=== PATIENT | male | born 1965 | race Caucasian/White ===

== ENCOUNTER → 2018-09-17 | Outpatient (CLI) | payer BC ==
--- NOTE | 2018-09-18 12:44 | ECHOF ---
Referral Reason:R09.89 Other specified symptons and signs involving MEASUREMENTS -------- HEIGHT: 193.0 cm WEIGHT: 86.2 kg BP: 154/80 RVIDd: 2.9 cm (< 3.3) IVSd: 1.2 cm (0.6 - 1.1) LVIDd: 4.1 cm (3.9 - 5.3) LVPWd: 1.3 cm (0.6 - 1.1) IVSs: 1.6 cm LVIDs: 2.9 cm LVPWs: 2.0 cm LA Diam: 3.7 cm (2.7 - 3.8) Ao Diam: 3.5 cm (2.0 - 3.7) AV Cusp: 2.1 cm (1.5 - 2.6) MV EXCURSION: 18.221 mm (> 18.000) MV EF SLOPE: 106 mm/s (70 - 150) EPSS: 0.9 cm MV E Can: 0.59 m/s MV DecT: 334 ms MV A Can: 0.86 m/s MV E/A Ratio: 0.69 FINDINGS -------- Sinus rhythm. This was a technically good study. The left ventricular size is normal. There is mild concentric left ventricular hypertrophy. Overa ll left ventricular systolic function is normal with, an EF between 55 - 60 %. The right ventricle is normal in size. Normal LA size by volume 22+/-6 ml/m2. The right atrium is normal in size. The aortic valve is trileaflet, and appears structurally normal. No aortic stenosis or regurgitation. The mitral valve is normal. The tricuspid valve appears structurally normal. There is no pulmonic regurgitation present. The aortic root size is normal. Normal inferior vena cava with normal inspiratory collapse consistent with estimated right atrial pre ssure of 5 mmHg. There is no pericardial effusion. CONCLUSIONS -------- 1. Sinus rhythm. 2. This was a technically good study. 3. The left ventricular size is normal. 4. There is mild concentric left ventricular hypertrophy. 5. Overall left ventricular systolic function is normal with, an EF between 55 - 60 %. 6. Normal LA size by volume 22+/-6 ml/m2. 7. The aortic valve is trileaflet, and appears structurally normal. No aortic stenosis or regurgitati on. 8. The mitral valve is normal. 9. The tricuspid valve appears structurally normal. 10. There is no pulmonic regurgitation present. 11. The aortic root size is normal. 12. Normal inferior vena cava with normal inspiratory collapse consistent with estimated right atrial pressure of 5 mmHg. 13. There is no pericardial effusion. RN CLINICAL RESEARCH: Norma Maat RDCS
== END | disposition home or self-care (01) ==
LOC: RADUSMAIN 12:39
PROVIDERS: ATTEND Family Medicine
DX: I51.7 Cardiomegaly (principal); R09.89 Other specified symptoms and signs involving the circulatory and respiratory systems
CPT/HCPCS: 93306

== ENCOUNTER 2023-09-04 17:45 | Inpatient (IN) | payer OTHER ==
[2023-09-04 18:57] LABS: Basophils % (A) 0 %; Eosinophils % (A) 0 %; HCT 36.5 % (39.0-53.0); Lymphocytes % (A) 9 %; MCH 33.5 pg (25.0-35.0); MCHC 32.9 g/dL (31.0-37.0); MCV 101.8 fL (80.0-100.0); Mean Platelet Volume 8.4; Monocytes # (A) 0.5 k/uL (0-1.0); Monocytes % (A) 5 %; Neutrophils # (A) 9.1 k/uL (1.3-7.7); Neutrophils % (A) 85 %; Platelet Count 289 k/uL (150-450); RBC 3.58 m/uL (4.30-5.90); RDW 11.9 % (11.5-15.5); WBC 10.7 k/uL (3.8-10.6)
[2023-09-04] MEDS ORDERED: SODIUM CHLORIDE 0.9% 1,000 ML IV ONE (19:12)
[2023-09-04] MEDS ORDERED: ONDANSETRON 4 MG/2 ML VIAL IVP STA (19:13)
[2023-09-04 19:16] LABS: NT-Pro-B-Type Natriuretic Pept 12100 pg/mL
[2023-09-04 19:19] LABS: INR 0.9 (<1.2); Partial Thromboplastin Time 24.3 sec (22.0-30.0); Prothrombin Time 10.1 sec (10.0-12.5)
--- NOTE | 2023-09-04 19:24 | XR ---
EXAMINATION TYPE: XR chest 2V DATE OF EXAM: 09/04/2023 7:04 PM CLINICAL INDICATION:Male, 57 years old with history of Chest Pain; COMPARISON: Chest radiographs from 12/25/2022 TECHNIQUE: XR chest 2V Frontal and lateral views of the chest. FINDINGS: Lungs/Pleura: There is flattening of the diaphragm with increased lucency of the lungs. No evidence o f pneumothorax, pleural effusion or focal consolidation. Pulmonary vascularity: Unremarkable. Heart/mediastinum: Cardiomediastinal silhouette is unremarkable. Musculoskeletal: No acute osseous pathology. IMPRESSION: 1. No acute cardiopulmonary disease process. 2. COPD changes.
[2023-09-04] MEDS ORDERED: HEPARIN SODIUM 1,000 UN/ML (10ML VL) IV PRN (20:21)
[2023-09-04] MEDS ORDERED: HEPARIN SODIUM 1,000 UN/ML (10ML VL) IV ONE (20:21)
[2023-09-04] MEDS ORDERED: MORPHINE SULFATE 4 MG/ML SYRINGE IVP STA (20:21)
[2023-09-04] MEDS ORDERED: ASPIRIN 81 MG PO STA (20:22)
[2023-09-04 20:24] LABS: ALT 35 U/L (4-49); AST 174 U/L (17-59); African American GFR (CKD) 33 (>60 ml/min/1.73 sqM); Alkaline Phosphatase 38 U/L (38-126); Anion Gap 20 mmol/L; Blood Urea Nitrogen 47 mg/dL (9-20); Calcium 9.2 mg/dL (8.4-10.2); Carbon Dioxide 19 mmol/L (22-30); Chloride 92 mmol/L (98-107); Glucose 457 mg/dL (74-99); Magnesium 1.9 mg/dL (1.6-2.3); Non-African American GFR(CKD) 28 (>60 ml/min/1.73 sqM); Potassium 3.9 mmol/L (3.5-5.1); Sodium 131 mmol/L (137-145); Total Protein 6.6 g/dL (6.3-8.2)
[2023-09-04] MEDS ORDERED: HEPARIN SOD,PORK IN 0.45% NACL 25,000 UNIT in 0.45% NACL 1 250ML.BAG IV SCH (20:30)
[2023-09-04 20:38] LABS: Lipase 2224 U/L (23-300)
--- NOTE | 2023-09-04 20:51 | ED ---
Chest Pain HPI - General Chief Complaint: Chest Pain Stated Complaint: chest pains, throwing up, weakness Time Seen by Provider: 09/04/23 17:50 Source: patient Mode of arrival: wheelchair Limitations: no limitations - History of Present Illness Initial Comments: 57-year-old male presents from home with complaint of intractable nausea vomiting. at bedside helps supplement the history. States that the patient had a family Thanksgiving dinner yesterday. He came home and started having vomiting. reports that he threw up once an hour all night long. He cannot hold down anything to eat or drink. He is an insulin-dependent diabetic. He has an insulin pump. His glucose has been reading high. He also reports to generalized abdominal pain and some substernal chest pain. He states that the chest pain feels like an ache from vomiting so much. He does have a history of coronary disease and has 3 stents in his heart. He follows the Dr. Arambula. He denies having any fevers. There are a couple of family members that have had GI symptoms as well. Denies any hematemesis. No diarrhea. No history of DKA. He did not take his medications last night which included his Eliquis. He did not take his Effient this morning. No other alleviating, precipitating or modifying factors - Related Data Home Medications Medication Instructions Recorded Confirmed ALPRAZolam [Xanax] 0.5 mg PO BID PRN 12/11/22 09/04/23 INSULIN LISPRO (For Pump) [humaLOG 0.01 units SQ-PUMP CONTINUOUS 12/11/22 09/04/23 (For Pump)] Omeprazole 40 mg PO DAILY 12/11/22 09/04/23 Apixaban [Eliquis] 2.5 mg PO BID 09/04/23 09/04/23 Metoprolol Succinate (ER) [Toprol 25 mg PO DAILY 09/04/23 09/04/23 XL] Multivitamins, Thera [Multivitamin 1 tab PO DAILY 09/04/23 09/04/23 (formulary)] Previous Rx's Medication Instructions Recorded Atorvastatin [Lipitor] 80 mg PO HS 30 Days #30 tab 12/14/22 Nitroglycerin Sl Tabs [Nitrostat] 0.4 mg SUBLINGUAL Q5M PRN #30 tab 12/14/22 Prasugrel [Effient] 10 mg PO DAILY 30 Days #30 tab 12/14/22 Spironolactone [Aldactone] 25 mg PO DAILY #30 tab 12/14/22 lisinopriL [Zestril] 2.5 mg PO DAILY #30 tab 12/14/22 Amiodarone [Cordarone] 200 mg PO DAILY #0 tab 12/27/22 Allergies Allergy/AdvReac Type Severity Reaction Status Date / Time No Known Allergies Allergy Verified 09/04/23 19:30 Review of Systems ROS Statement: Those systems with pertinent positive or pertinent negative responses have been documented in the HPI. ROS Other: All systems not noted in ROS Statement are negative. Past Medical History Past Medical History: Coronary Artery Disease (CAD), Diabetes Mellitus, Myocardial Infarction (MS) Additional Past Medical History / Comment(s): Pneumothorax Last Myocardial Infarction Date:: nov 2022 History of Any Multi-Drug Resistant Organisms: None Reported Past Surgical History: Heart Catheterization With Stent Additional Past Surgical History / Comment(s): Chest tube Date of Last Stent Placement:: 12/11/22 Past Psychological History: No Psychological Hx Reported Smoking Status: Current every day smoker Past Alcohol Use History: None Reported Past Drug Use History: None Reported - Past Family History Father Family Medical History: Deep Vein Thrombosis (DVT), Myocardial Infarction (MS) Mother Family Medical History: AFIB General Exam Limitations: no limitations General appearance: alert, in no apparent distress Head exam: Present: atraumatic, normocephalic, normal inspection Eye exam: Present: normal appearance, PERRL, EOMI. Absent: scleral icterus, conjunctival injection, periorbital swelling ENT exam: Present: normal exam, mucous membranes moist Neck exam: Present: normal inspection. Absent: meningismus, lymphadenopathy Respiratory exam: Present: normal lung sounds bilaterally. Absent: respiratory distress, wheezes, rales, rhonchi, stridor Cardiovascular Exam: Present: regular rate, normal rhythm, normal heart sounds. Absent: systolic murmur, diastolic murmur, rubs, gallop, clicks GI/Abdominal exam: Present: soft, tenderness (Generalized), normal bowel sounds. Absent: distended, guarding, rebound, rigid Extremities exam: Present: normal inspection, full ROM, normal capillary refill. Absent: tenderness, pedal edema, joint swelling, calf tenderness Back exam: Present: normal inspection Neurological exam: Present: alert, oriented X3, CN II-XII intact Psychiatric exam: Present: normal affect, normal mood Skin exam: Present: warm, dry, intact, normal color. Absent: rash Course Vital Signs 09/04/23 09/04/23 09/04/23 17:48 19:50 21:25 Temperature 97.9 F Pulse Rate 75 73 75 Respiratory 16 18 18 Rate Blood Pressure 110/71 130/77 121/67 O2 Sat by Pulse 99 96 98 Oximetry 09/04/23 09/04/23 22:13 23:14 Temperature Pulse Rate 78 80 Respiratory 18 18 Rate Blood Pressure 116/65 118/77 O2 Sat by Pulse 95 96 Oximetry Chest Pain MDM - MDM Was pt. sent in by a medical professional or institution ([facility], P[employer]MENT [employer] IN[employer]CTOR, urgent care, hospital, or custodial...) When possible be specific @ -No Did you speak to anyone other than the patient for history (EMS, parent, family, police, friend...)? What history was obtained from this source @ -The patient's helps provide history Did you review nursing and triage notes (agree or disagree)? Why? @ -I reviewed and agree with nursing and triage notes Were old charts reviewed (outside hosp., previous admission, EMS record, old EKG, old radiological studies, urgent care reports/EKG's, custodial records)? Report findings @ -I reviewed the patient's last EKG from December and his cardiac cath in November Differential Diagnosis (chest pain, altered mental status, abdominal pain women, abdominal pain men, vaginal bleeding, weakness, fever, dyspnea, syncope, headache, dizziness, GI bleed, back pain, seizure, CVA, palpatations, mental health, musculoskeletal)? @ -Differential Chest Pain: Stable Angina, Unstable Angina, STEMI, NSTEMI Aortic Dissection, Pneumothorax, Musculoskeletal, Esophageal Spasm GERD, Cholecystitis, Pancreatitis, Zoster, this is not meant to be an all-inclusive list. Differential Abdominal Pain Women: Appendicitis, Cholecystitis, diverticulosis, ischemic bowel, pancreatitis, hepatitis, UTI, gastroenteritis, AAA, incarcerated hernia, bowel obstruction, constipation, inflammatory bowel, hepatitis, peptic ulcer disease, splenic infarction, perforated viscus, vulvitis, ovarian torsion, PID, kidney stone, placenta abruption, this is not meant to be an all-inclusive list EKG interpreted by me (3pts min.). @ -Originally EKG done at 180 demonstrates sinus rhythm with a rate of 75. WY interval 170. QRS 111. QTC of 440. PVCs. No significant ST segment elevation area and mild ST depression in aVL Repeat EKG done at 194 demonstrates sinus rhythm with a biphasic T wave in V1 and V2. No reciprocal changes. Rate of 77. WY interval 132. QRS 101. QTC of 423 X-rays interpreted by me (1pt min.). @ -Yes and demonstrates no acute process CT interpreted by me (1pt min.). @ -Yes and demonstrates pancreatitis U/S interpreted by me (1pt. min.). @ -None done What testing was considered but not performed or refused? (CT, X-rays, U/S, labs)? Why? @ -None What meds were considered but not given or refused? Why? @ -None Did you discuss the management of the patient with other professionals (professionals i.e. DrSerenity, PA, POWER EQUIPMENT TECHNOLOGY INSTRUCTOR, lab, RT, psych nurse, social work nurse, certified teacher assistant, teacher, officer lieutenant, geriatric case manager)? Give summary @ -I spoke with Dr. Arambula. He reports that he would perform a heart cath on the patient's if his kidney function is okay. Kidney function does return and patient is in acute renal failure. Because of this he recommends heparin drip and medical management at this time. I also spoke with James from ICU was agreeable to accept the patient. Also spoke with Karyn from [facility] Was smoking cessation discussed for >3mins.? @ -No Was critical care preformed (if so, how long)? @ -Yes, 40 minutes for ICU admission. Patient has DKA, and STEMI Were there social determinants of health that impacted care today? How? (Homelessness, low income, unemployed, alcoholism, drug addiction, transportation, low edu. Level, literacy, decrease access to med. care, senior living, rehab)? @ -No Was there de-escalation of care discussed even if they declined (Discuss DNR or withdrawal of care, Hospice)? DNR status @ -No What co-morbidities impacted this encounter? (DM, HTN, Smoking, COPD, CAD, Cancer, CVA, ARF, Chemo, Hep., AIDS, mental health diagnosis, sleep apnea, morbid obesity)? @ -Diabetes mellitus, coronary disease Was patient admitted / discharged? Hospital course, mention meds given and route, prescriptions, significant lab abnormalities, going to OR and other pertinent info. @ -Admitted. Upon arrival patient is placed into room 4. Thorough history and physical exam was performed. IV access is established. Patient given Zofran for nausea and started on IV fluids. He does have a history of congestive heart failure and therefore the patient's only receives 1 L bolus. Laboratory studies are conducted. Chest x-rays performed. Patient does meet criteria for DKA. He is started on an insulin drip and his insulin pump was removed. Patient also has significantly elevated troponin level. Called and spoke with Dr. Arambula. Reports that he would catheterize the patient's but is awaiting kidney function. Patient's kidney function does return and is elevated therefore risks of catheterization at this time is risky. He recommends the patient be heparinized. He is given an aspirin. I discussed the results with the patient. He must be admitted for cardiac evaluation as well as evaluation for pancreatitis and DKA. Patient understood this and was agreeable. Spoke with James from the ICU who agreed to admit the patient Undiagnosed new problem with uncertain prognosis? @ -Yes Drug Therapy requiring intensive monitoring for toxicity (Heparin, Nitro, Insulin, Cardizem)? @ -Yes, heparin and insulin Were any procedures done? @ No Diagnosis/symptom? @ -Intractable nausea and vomiting, acute pancreatitis, acute DKA, NSTEMI, LOLLY Acute, or Chronic, or Acute on Chronic? @ -Acute Uncomplicated (without systemic symptoms) or Complicated (systemic symptoms)? @ -Complicated Side effects of treatment? @ -No Exacerbation, Progression, or Severe Exacerbation? @ -No Poses a threat to life or bodily function? How? (Chest pain, USA, MS, pneumonia, PE, COPD, DKA, ARF, appy, cholecystitis, CVA, Diverticulitis, Homicidal, Suicidal, threat to staff... and all critical care pts) @ -Yes, patient must be admitted to ICU for DKA, LOLLY, NSTEMI Disposition Clinical Impression: NSTEMI (non-ST elevated myocardial infarction), Congestive heart failure, Nausea and vomiting, DKA (diabetic ketoacidosis), LOLLY (acute kidney injury), Acute pancreatitis Disposition: ADMITTED IP TO THIS HOSP Condition: Serious Is patient prescribed a controlled substance at d/c from ED?: No Time of Disposition: 21:46 Decision to Admit Reason: Admit from EC Decision Date: 09/04/23 Decision Time: 21:46
[2023-09-04] MEDS: SODIUM CHLORIDE 0.9% 1,000 ML IV SCH (21:01)
--- NOTE | 2023-09-04 21:16 | CT ---
EXAMINATION TYPE: CT abdomen pelvis wo con CT DLP: 632.5 mGycm, Automated exposure control for dose reduction was used. DATE OF EXAM: 09/04/2023 9:04 PM COMPARISON: None CLINICAL INDICATION:Male, 57 years old with history of abd pain; abdominal pain TECHNIQUE: Axial CT of the ;CT abdomen pelvis wo con;Sagittal and coronal reformats were created on a separate workstation. Contrast used: mL of , (none if empty) Oral contrast used: without Oral Contrast (none if empty) FINDINGS: LOWER CHEST: Small hiatal hernia. ABDOMEN LIVER: Unremarkable GALLBLADDER AND BILE DUCTS: Layering gallstones present. PANCREAS: Fat stranding changes around the pancreatic head and neck. No organizing fluid collection.. SPLEEN: Unremarkable. ADRENAL GLANDS: Unremarkable. KIDNEYS AND URETERS: No evidence of hydronephrosis or renal calculus. The ureters are unremarkable. PELVIS BLADDER: Unremarkable REPRODUCTIVE: Unremarkable. ABDOMEN & PELVIS STOMACH AND BOWEL: No evidence of bowel obstruction. Appendix is normal. PERITONEUM/RETROPERITONEUM: No evidence of pneumoperitoneum or free fluid. VASCULATURE: No evidence of aortic aneurysm. MUSCULOSKELETAL: No acute osseous abnormalities. Mild disc degeneration changes are present throughou t the thoracolumbar spine. LYMPH NODES: No gross evidence for lymphadenopathy. SOFT TISSUE/ABDOMINAL WALL: Unremarkable IMPRESSION: 1. Peripancreatic inflammation changes correlate with serum lipase for pancreatitis. No additional e vidence for acute abdominal process. 2. Appendix is normal. No obstructive uropathy.
[2023-09-04] MEDS ORDERED: INSULIN REGULAR 100 UNIT in SODIUM CHLORIDE 0.9% 100 ML IV SCH (21:45)
[2023-09-04 21:49] LABS: Glucose,Whole Blood 315 mg/dL (70-110)
[2023-09-04 22:56] LABS: Glucose,Whole Blood 246 mg/dL (70-110)
[2023-09-04] MEDS: D5-0.45% NACL WITH KCL 20MEQ/L 1,000 ML IV SCH (23:09)
[2023-09-04] MEDS ORDERED: NALOXONE 0.4 MG/ML 1 ML VIAL IV PRN (23:33)
[2023-09-04] MEDS ORDERED: LORazepam 2 MG/ML INJ IV PRN ×3 (23:43)
[2023-09-04] MEDS ORDERED: THIAMINE 100 MG/ML 2 ML VIAL IM STA (23:43)
[2023-09-05 00:12] LABS: Glucose,Whole Blood 195 mg/dL (70-110)
[2023-09-05] MEDS: MORPHINE SULFATE 4 MG/ML SYRINGE IVP PRN ×3 (00:20→19:35)
[2023-09-05] MEDS: ONDANSETRON 4 MG/2 ML VIAL IVP PRN ×2 (00:20→06:50)
[2023-09-05 00:52] LABS: African American GFR (CKD) 47 (>60 ml/min/1.73 sqM); Anion Gap 11 mmol/L; Blood Urea Nitrogen 48 mg/dL (9-20); Carbon Dioxide 24 mmol/L (22-30); Chloride 99 mmol/L (98-107); Glucose 189 mg/dL (74-99); Non-African American GFR(CKD) 41 (>60 ml/min/1.73 sqM); Potassium 3.5 mmol/L (3.5-5.1); Sodium 134 mmol/L (137-145)
[2023-09-05 00:55] LABS: Glucose,Whole Blood 190 mg/dL (70-110)
[2023-09-05 02:04] LABS: Glucose,Whole Blood 151 mg/dL (70-110)
[2023-09-05 03:03] LABS: Glucose,Whole Blood 124 mg/dL (70-110)
--- NOTE | 2023-09-05 03:31 | P.CNPUL ---
History of Present Illness Consult date: 09/05/23 Requesting physician: Martha Long Reason for consult: other (ICU management) Chief complaint: Nausea and vomiting and abdominal pain History of present illness: I am seeing this patient in new consultation today 09/05/2023 in the intensive care unit after the patient presented with acute abdominal pain and nausea and vomiting. Patient is a 57-year-old white male with past medical history s ignificant for diabetes mellitus normally managed on insulin pump, alcoholism, coronary artery disease and ND with prior stents, chronic and ongoing tobacco dependence, and anxiety. Patient has had a total of 3 cardiac stents, with his last heart catheterization back in November,, where he underwent another PCI/stent to the circumflex/OM1. Patient unfortunately continues to smoke approximately 1 pack per day. He also drinks approximately 1 pint per day. His last drink was yesterday at a Thanksgiving dinner. Patient states that after the constitution party, he had intractable nausea and vomiting. He was progressively more weak. He had associated medial abdominal pain. He denies any hematemesis, bloody bowel movements, constipation, diarrhea. He states that his blood sugars were running greater than 600 while at home. He was unable to control his blood sugar despite insulin boluses. On arrival to the emergency room last night, the patient was found to be in acute diabetic ketoacidosis and also had findings consistent with acute pancreatitis. Blood glucose on arrival was 457, serum bicarb 19, anion gap 20, acetone positive. Patient was started on the DKA protocol. Insulin is infusing at 8 units per hour. Influenza been transitioned to D5 W0.45% saline with 20 meqs potassium at 150 ML's per hour. Patient's lipase levels were quite elevated at 2224. A follow-up noncontrast CT of the abdomen demonstrated stranding changes around the pancreatic head and neck. No organized fluid collection. There are layering gallstones present. No symptoms of infectious process. LFTs mildly elevated. No jaundice. Patient is currently receiving IV fluids as listed above and nothing by mouth. A GI consult was placed. Patient also noted some midsternal chest pain without radiation. This is been ongoing overnight. Troponins were significantly elevated at 62.4 and is downtrending currently 45.3. ECG done on arrival showed normal sinus rhythm with nonspecific T-wave changes in the anterior leads. Cardiology was contacted, but deferred heart catheterization due to the patient's kidney function. Heparin is infusing per protocol. Baseline APTT 24. BMP from admission shows a sodium 131, potassium 3.9, chloride 92, serum bicarb 19, anion gap 20, BUN 47, creatinine 2.43, glucose 457. CBC unremarkable without any leukocytosis. Patient is currently lying in bed, on room air, in no acute distress. SpO2 is 95%. Vital signs are stable. Blood pressure is normotensive. Heart rhythm appears normal sinus on bedside monitor at a rate of 80 bpm. No tachycardia or tachypnea. He remains afebrile. Abdomen is tender to palpation. No abnormal bruising or distention. He is currently nothing by mouth. Nausea and vomiting has subsided. He will be monitored in the intensive care unit. Review of Systems REVIEW OF SYSTEMS: CONSTITUTIONAL: Denies any recent significant weight loss or weight gain. EYES: Denies change in vision. EARS, NOSE, MOUTH, THROAT: Denies headaches, denies sore throat. CARDIOVASCULAR: Admits substernal chest pain without radiation. Denies any heart palpitations, lightheadedness, syncope. Denies any lower extremity edema. RESPIRATORY: Denies shortness of breath, cough, congestion or hemoptysis. GASTROINTESTINAL: see HPI GENITOURINARY: Denies hematuria, denies infections. MUSKULOSKELETAL: Denies pain, denies swelling. INTEGUMENTARY: Denies rash, denies eczema. NEUROLOGICAL: Denies recent memory loss, no recent seizure activity. PSYCHIATRIC: Denies anxiety, denies depression. HEMATOLOGIC/LYMPHATIC: Denies anemia, denies enlarged lymph node Past Medical History Past Medical History: Coronary Artery Disease (CAD), Diabetes Mellitus, Myocar dial Infarction (ND) Additional Past Medical History / Comment(s): Pneumothorax Last Myocardial Infarction Date:: nov 2022 History of Any Multi-Drug Resistant Organisms: None Reported Past Surgical History: Heart Catheterization With Stent Additional Past Surgical History / Comment(s): Chest tube Date of Last Stent Placement:: 12/11/22 Past Psychological History: No Psychological Hx Reported Smoking Status: Current every day smoker Past Alcohol Use History: None Reported Past Drug Use History: None Reported - Past Family History Father Family Medical History: Deep Vein Thrombosis (DVT), Myocardial Infarction (ND) Mother Family Medical History: AFIB Medications and Allergies Home Medications Medication Instructions Recorded Confirmed Type ALPRAZolam [Xanax] 0.5 mg PO BID PRN 12/11/22 09/04/23 History INSULIN LISPRO (For Pump) [humaLOG 0.01 units SQ-PUMP CONTINUOUS 12/11/22 09/04/23 History (For Pump)] Omeprazole 40 mg PO DAILY 12/11/22 09/04/23 History Atorvastatin [Lipitor] 80 mg PO HS 30 Days #30 tab 12/14/22 09/04/23 Rx Nitroglycerin Sl Tabs [Nitrostat] 0.4 mg SUBLINGUAL Q5M PRN #30 tab 12/14/22 09/04/23 Rx Prasugrel [Effient] 10 mg PO DAILY 30 Days #30 tab 12/14/22 09/04/23 Rx Spironolactone [Aldactone] 25 mg PO DAILY #30 tab 12/14/22 09/04/23 Rx lisinopriL [Zestril] 2.5 mg PO DAILY #30 tab 12/14/22 09/04/23 Rx Amiodarone [Cordarone] 200 mg PO DAILY #0 tab 12/27/22 09/04/23 Rx Apixaban [Eliquis] 2.5 mg PO BID 09/04/23 09/04/23 History Metoprolol Succinate (ER) [Toprol 25 mg PO DAILY 09/04/23 09/04/23 History XL] Multivitamins, Thera [Multivitamin 1 tab PO DAILY 09/04/23 09/04/23 History (formulary)] Allergies Allergy/AdvReac Type Severity Reaction Status Date / Time No Known Allergies Allergy Verified 09/04/23 19:30 Physical Exam Vitals: Vital Signs Temp Pulse Resp BP Pulse Ox 09/05/23 02:00 80 18 117/69 91 L 09/05/23 01:30 81 20 93 L 09/05/23 01:00 81 19 122/67 91 L 09/05/23 00:30 81 14 95 09/05/23 00:00 98.1 F 74 18 123/71 93 L 09/04/23 23:36 79 13 09/04/23 23:14 80 18 118/77 96 09/04/23 22:13 78 18 116/65 95 09/04/23 21:25 75 18 121/67 98 09/04/23 19:50 73 18 130/77 96 09/04/23 17:48 97.9 F 75 16 110/71 99 Intake and Output 09/04/23 09/04/23 09/05/23 14:59 22:59 06:59 Intake Total 450 Balance 450 Intake: IV 450 D5-0.45% NaCl with KCl 450 20Meq/l 1,000 ml @ 150 mls/hr IV .[id number] [facility] Rx# :[id number] Other: Voiding Method Urinal Weight 83.915 kg GENERAL EXAM: Alert, 57-year-old white male appearing stated age, comfortable in no apparent distress. HEAD: Normocephalic and atraumatic EYES: Normal reaction of pupils, equal size. NOSE: Clear with pink turbinates. THROAT: No erythema or exudates. NECK: No masses, no JVD. CHEST: No chest wall deformity. LUNGS: Equal air entry with no crackles, wheeze, rhonchi or dullness. On room air. No conversational dyspnea or accessory muscle use.. CVS: S1 and S2 normal with no audible murmur, regular rhythm. No extra heart sounds ABDOMEN: No hepatosplenomegaly, active bowel sounds, no guarding or rigidity. No cody or Perkins Roca sign. Facial grimacing with deep palpation of the medial abdomen SPINE: No scoliosis or deformity SKIN: No rashes. Non-jaundice CENTRAL NERVOUS SYSTEM: No focal deficits, tone is normal in all 4 extremities. EXTREMITIES: There is no peripheral edema, clubbing, or cyanosis. Peripheral pulses are intact. Results - Laboratory Findings CBC and BMP: 09/05/23 04:12 09/05/23 04:12 PT/INR, D-dimer PT 10.1 sec (10.0-12.5) 09/04/23 18:46 INR 0.9 (<1.2) 09/04/23 18:46 Abnormal lab findings: Abnormal Labs 09/04/23 09/04/23 09/04/23 18:46 18:46 18:46 WBC 10.7 H RBC 3.58 L Hgb 12.0 L Hct 36.5 L MCV 101.8 H Neutrophils # 9.1 H Sodium 131 L Chloride 92 L Carbon Dioxide 19 L BUN 47 H Creatinine 2.43 H Glucose 457 H POC Glucose (mg/dL) AST 174 H Troponin I 62.400 H* Lipase 2224 H 09/04/23 09/04/23 09/05/23 21:47 22:56 00:10 WBC RBC Hgb Hct MCV Neutrophils # Sodium 134 L Chloride Carbon Dioxide BUN 48 H Creatinine 1.81 H Glucose 189 H POC Glucose (mg/dL) 315 H 246 H AST Troponin I Lipase 09/05/23 09/05/23 09/05/23 00:10 00:11 00:54 WBC RBC Hgb Hct MCV Neutrophils # Sodium Chloride Carbon Dioxide BUN Creatinine Glucose POC Glucose (mg/dL) 195 H 190 H AST Troponin I 45.300 H* Lipase 09/05/23 02:02 WBC RBC Hgb Hct MCV Neutrophils # Sodium Chloride Carbon Dioxide BUN Creatinine Glucose POC Glucose (mg/dL) 151 H AST Troponin I Lipase - Diagnostic Findings Chest x-ray: image reviewed Assessment and Plan Assessment: Non-ST elevation ND Acute diabetic ketoacidosis Acute pancreatitis without cholangitis, a noncontrast CT of the abdomen demonstrated stranding changes around the pancreatic head and neck. No organized fluid collection. There are layering gallstones present. History of alcoholism, drinks approximately 1 pint per day. Last drink reportedly yesterday Acute kidney injury, related to dehydration Coronary artery disease, with previous stents to the proximal and mid LAD and OM1 History of ischemic cardiomyopathy with an ejection fraction of 35-40%. Insulin-dependent diabetes mellitus, on insulin pump Chronic ongoing tobacco dependence History of anxiety Plan: Patient was admitted to the intensive care unit Cardiology was consulted for suspected non-ST elevation ND and elevated trop onins. No plans for heart catheterization tonight. Patient's renal function is poor. Monitor troponins. Continue heparin infusion per protocol. Continue on the DKA protocol, and monitor electrolytes every 4 hours. Continue insulin per protocol. IV fluids transitioned to D5W0.45% saline with 20 mEq of potassium at 150 ML's per hour. Noncontrast CT of the abdomen demonstrated stranding changes around the pancreatic head and neck. No organized fluid collection. There are layering gallstones present. No evidence of cholangitis. LFTs only mildly elevated. Nonjaundiced. No leukocytosis. Lipase level elevated at 2224. Awaiting further recommendations from GI. Patient is currently nothing by mouth. Nausea and vomiting has subsided. Patient was counseled on tobacco and alcohol cessation. Monitor for alcohol withdrawal symptoms, CIWA protocol added Currently, the patient appears hemodynamically stable. No need for vasopressors. He is being monitored in the intensive care unit, and further recommendations are forthcoming I have personally seen and examined the patient, performed the documentation and the assessment and plan as written. Number of minutes spent on the visit:20 This is a joint evaluation that was done along with the nurse practitioner. The patient was seen and evaluated. This evaluation was a on more than 30 minutes. Currently the patient is awake and alert. Is having some mild nausea. Anion gap metabolic acidosis has closed. The patient remains on D5 half-normal saline at rate of 150 mL an hour and the patient is also on insulin drip running at 1 units an hour. The patient is also on IV heparin. Hemodynamically stable. No cardiac arrhythmias. His post non-ST segment elevation myocardial infarction. Acute kidney injury is improving. Creatinine is on a decline. The patient also has a component of acute pancreatitis. For now, we'll continue monitoring the blood sugars. We'll switch this patient to Levemir insulin and given 14 units along with a sliding scale coverage. Stop insulin drip for now as long as his anion gap metabolic acidosis has recovered. He is not ready for oral intake yet. We'll repeat another echocardiogram. We'll provide Zofran for his nausea. We will restart some of his oral medications as long as the patient is able to keep the medications and. We'll continue to follow. The patient will be kept in the ICU for today. . Time with Patient: Greater than 30
[2023-09-05 04:06] LABS: Glucose,Whole Blood 109 mg/dL (70-110)
[2023-09-05 04:09] LABS: Glucose,Whole Blood 116 mg/dL (70-110)
[2023-09-05] MEDS: SODIUM CHLORIDE 0.9% 1,000 ML IV SCH ×2 (04:50→13:11)
[2023-09-05 04:52] LABS: INR 0.9 (<1.2); Prothrombin Time 10.4 sec (10.0-12.5)
[2023-09-05 04:57] LABS: African American GFR (CKD) 59 (>60 ml/min/1.73 sqM); Anion Gap 9 mmol/L; Blood Urea Nitrogen 43 mg/dL (9-20); Carbon Dioxide 25 mmol/L (22-30); Chloride 102 mmol/L (98-107); Glucose 104 mg/dL (74-99); Non-African American GFR(CKD) 51 (>60 ml/min/1.73 sqM); Potassium 3.4 mmol/L (3.5-5.1); Sodium 136 mmol/L (137-145); Total Bilirubin 0.6 mg/dL (0.2-1.3)
[2023-09-05 05:06] LABS: Lipase 2763 U/L (23-300)
[2023-09-05 05:10] LABS: Glucose,Whole Blood 110 mg/dL (70-110)
[2023-09-05 05:14] LABS: Amylase 371 U/L (30-110)
[2023-09-05 05:28] LABS: Appearance,Urine Clear (Clear); Bilirubin,Urine 1+ (Negative); Blood,Urine Negative (Negative); Color,Urine Yellow; Glucose,Urine (UA) 2+ (Negative); Ketones,Urine 1+ (Negative); Leukocyte Esterase,Urine Negative (Negative); Nitrite,Urine Negative (Negative); PH, Urine 5.5 (5.0-8.0); Protein,Urine Trace (Negative); Specific Gravity,Urine 1.022 (1.001-1.035)
[2023-09-05 05:43] LABS: Amphetamine Screen,Urine Not Detected (NotDetected); Barbiturate Screen,Urine Not Detected (NotDetected); Benzodiazepines Screen,Urine Detected (NotDetected); Cocaine Screen,Urine Not Detected (NotDetected); Methadone Screen, Urine Not Detected (NotDetected); Opiate Screen,Urine Detected (NotDetected); Oxycodone Screen, Urine Not Detected (NotDetected); Phencyclidine Screen,Urine Not Detected (NotDetected); Tricyclic Antidepressant,Urine Not Detected (NotDetected); Urn Cannabinoid Scrn Not Detected (NotDetected)
[2023-09-05 05:46] LABS: Basophils % (A) 0 %; Eosinophils % (A) 0 %; HGB 11.3 gm/dL (13.0-17.5); Lymphocytes # (A) 1.1 k/uL (1.0-4.8); Lymphocytes % (A) 7 %; MCH 33.7 pg (25.0-35.0); MCHC 34.3 g/dL (31.0-37.0); MCV 98.3 fL (80.0-100.0); Mean Platelet Volume 8.6; Monocytes % (A) 7 %; Neutrophils # (A) 12.1 k/uL (1.3-7.7); Neutrophils % (A) 84 %; Platelet Count 230 k/uL (150-450); RBC 3.36 m/uL (4.30-5.90); RDW 12.4 % (11.5-15.5); WBC 14.4 k/uL (3.8-10.6)
[2023-09-05 06:06] LABS: Glucose,Whole Blood 111 mg/dL (70-110)
[2023-09-05 07:02] LABS: Glucose,Whole Blood 124 mg/dL (70-110)
--- NOTE | 2023-09-05 07:02 | P.HPIM ---
History of Present Illness this is a pleasant 57 years old male with past medical history of multipe medical problems including history of coronary artery disease status post 2 stents and ischemic cardiomyopathy with ejection fraction of 35-40%, alcohol use disorder. Diabetes mellitus, hypertension, hyperlipidemia and atrial fibrillation, And chronic kidney disease stage III. who came last night because of repeated vomiting , non bloody , associated with epigastric abdominal pain of two days duration ,pain is about 8/10 on presentation , non specific in character . associated with mild chest pain , central non radiating about 2-3 /10, no dyspnea , no coughing had no diarrhea or bowel movement yesterday also denies any urinary complaint, he has mild headache but no dizziness, weakness or numbness he smokes about 1 pack per day and he was counseled to quit and he agrees but he denies nicotine patch , he drinks about one pint each day of liqour, no illicit drug Patient is also diabetic and he was on insulin pump at home which is a stalk n ow, has history of paroxysmal atrial fibrillation on ELiquis at home Vitals are stable Labs showed leukocytosis of 14,000, hemoglobin 11, creatinine was 2.4 came back to 1.5. Troponin is elevated 39 and 33 anion gap was elevated on admission as 20, currently closed down to 9 Lipase Is elevated 2763 Drug screen is positive for opiates and benzodiazepines CT of the abdomen and pelvis showing fat stranding in the peripancreatic area suspicious for acute pancreatitis Chest x-ray shows COPD changes which are chronic with no acute changes Review of Systems Review of systems CONSTITUTIONAL: No fever, no malaise, no fatigue. HEENT: No recent visual problems or hearing problems. Denied any sore throat. CARDIOVASCULAR: No orthopnea, PND, no palpitations, no syncope. PULMONARY: No shortness of breath, no cough, no hemoptysis. GASTROINTESTINAL: No diarrhea, . Normoactive bowel sounds. NEUROLOGICAL: No headaches, no weakness, no numbness. HEMATOLOGICAL: Denies any bleeding or petechiae. GENITOURINARY: Denies any burning micturition, frequency, or urgency. MUSCULOSKELETAL/RHEUMATOLOGICAL: Denies any joint pain, swelling, or any muscle pain. ENDOCRINE: Denies any polyuria or polydipsia. Past Medical History Past Medical History: Coronary Artery Disease (CAD), Diabetes Mellitus, Myocardial Infarction (AR) Additional Past Medical History / Comment(s): Pneumothorax Last Myocardial Infarction Date:: nov 2022 History of Any Multi-Drug Resistant Organisms: None Reported Past Surgical History: Heart Catheterization With Stent Additional Past Surgical History / Comment(s): Chest tube Date of Last Stent Placement:: 12/11/22 Past Psychological History: No Psychological Hx Reported Smoking Status: Current every day smoker Past Alcohol Use History: None Reported Past Drug Use History: None Reported - Past Family History Father Family Medical History: Deep Vein Thrombosis (DVT), Myocardial Infarction (AR) Mother Family Medical History: AFIB Medications and Allergies Home Medications Medication Instructions Recorded Confirmed Type ALPRAZolam [Xanax] 0.5 mg PO BID PRN 12/11/22 09/04/23 History INSULIN LISPRO (For Pump) [humaLOG 0.01 units SQ-PUMP CONTINUOUS 12/11/22 09/04/23 History (For Pump)] Omeprazole 40 mg PO DAILY 12/11/22 09/04/23 History Atorvastatin [Lipitor] 80 mg PO HS 30 Days #30 tab 12/14/22 09/04/23 Rx Nitroglycerin Sl Tabs [Nitrostat] 0.4 mg SUBLINGUAL Q5M PRN #30 tab 12/14/22 09/04/23 Rx Prasugrel [Effient] 10 mg PO DAILY 30 Days #30 tab 12/14/22 09/04/23 Rx Spironolactone [Aldactone] 25 mg PO DAILY #30 tab 12/14/22 09/04/23 Rx lisinopriL [Zestril] 2.5 mg PO DAILY #30 tab 12/14/22 09/04/23 Rx Amiodarone [Cordarone] 200 mg PO DAILY #0 tab 12/27/22 09/04/23 Rx Apixaban [Eliquis] 2.5 mg PO BID 09/04/23 09/04/23 History Metoprolol Succinate (ER) [Toprol 25 mg PO DAILY 09/04/23 09/04/23 History XL] Multivitamins, Thera [Multivitamin 1 tab PO DAILY 09/04/23 09/04/23 History (formulary)] Allergies Allergy/AdvReac Type Severity Reaction Status Date / Time No Known Allergies Allergy Verified 09/04/23 19:30 Physical Exam Vitals: Vital Signs Temp Pulse Resp BP Pulse Ox 09/05/23 06:00 78 19 117/56 98 09/05/23 05:30 76 13 96 09/05/23 05:00 79 17 112/65 92 L 09/05/23 04:30 79 20 92 L 09/05/23 04:00 78 17 116/75 91 L 09/05/23 03:30 76 20 95 09/05/23 03:00 79 15 115/58 93 L 09/05/23 02:30 80 20 91 L 09/05/23 02:00 80 18 117/69 91 L 09/05/23 01:30 81 20 93 L 09/05/23 01:00 81 19 122/67 91 L 09/05/23 00:30 81 14 95 09/05/23 00:00 98.1 F 74 18 123/71 93 L 09/04/23 23:36 79 13 09/04/23 23:14 80 18 118/77 96 09/04/23 22:13 78 18 116/65 95 09/04/23 21:25 75 18 121/67 98 09/04/23 19:50 73 18 130/77 96 09/04/23 17:48 97.9 F 75 16 110/71 99 Intake and Output 09/04/23 09/04/23 09/05/23 14:59 22:59 06:59 Intake Total 1099.741 Output Total 30 Balance 1069.741 Intake: IV 1050 D5-0.45% NaCl with KCl 1050 20Meq/l 1,000 ml @ 150 mls/hr IV .[id number] [facility] Rx# :[id number] Intake, IV Titration 49.741 Amount Insulin Regular 100 unit 49.741 In Sodium Chloride 0.9% 100 ml @ 0.1 UNITS/KG/HR 8.475 mls/hr IV .[id number] [facility] Rx#:[id number] Output: Urine 30 Other: Voiding Method Urinal Weight 83.915 kg 93.6 kg GENERAL: The patient is alert and oriented x3, not in any acute distress. Well developed, well nourished. HEENT: Pupils are round and equally reacting to light. EOMI. No scleral icterus. No conjunctival pallor. Normocephalic, atraumatic. No pharyngeal erythema. No thyromegaly. CARDIOVASCULAR: S1 and S2 present. No murmurs, rubs, or gallops. PULMONARY: Chest is clear to auscultation, no wheezing , no crackles. -ABDOMEN: Soft, epigastric tenderness with no rebound tenderness or guarding, nondistended, normoactive bowel sounds. No palpable organomegaly. MUSCULOSKELETAL: No joint swelling or deformity. EXTREMITIES: No cyanosis, clubbing, or pedal edema. NEUROLOGICAL: Gross neurological examination did not reveal any focal deficits. SKIN: No rashes. no petechiae. Results CBC & Chem 7: 09/05/23 04:12 09/05/23 04:12 Labs: Abnormal Lab Results - Last 24 Hours (Table) 09/04/23 09/04/23 09/04/23 Range/Units 18:46 18:46 18:46 WBC 10.7 H (3.8-10.6) k/uL RBC 3.58 L (4.30-5.90) m/uL Hgb 12.0 L (13.0-17.5) gm/dL Hct 36.5 L (39.0-53.0) % MCV 101.8 H (80.0-100.0) fL Neutrophils # 9.1 H (1.3-7.7) k/uL APTT (22.0-30.0) sec Sodium 131 L (137-145) mmol/L Potassium (3.5-5.1) mmol/L Chloride 92 L (98-107) mmol/L Carbon Dioxide 19 L (22-30) mmol/L BUN 47 H (9-20) mg/dL Creatinine 2.43 H (0.66-1.25) mg/dL Glucose 457 H (74-99) mg/dL POC Glucose (mg/dL) (70-110) mg/dL AST 174 H (17-59) U/L Troponin I 62.400 H* (0.000-0.034) ng/mL Amylase (30-110) U/L Lipase 2224 H (23-300) U/L Urine Protein (Negative) Urine Glucose (UA) (Negative) Urine Ketones (Negative) Urine Bilirubin (Negative) Urine Opiates Screen (NotDetected) U Benzodiazepines Scrn (NotDetected) 09/04/23 09/04/23 09/05/23 Range/Units 21:47 22:56 00:10 WBC (3.8-10.6) k/uL RBC (4.30-5.90) m/uL Hgb (13.0-17.5) gm/dL Hct (39.0-53.0) % MCV (80.0-100.0) fL Neutrophils # (1.3-7.7) k/uL APTT (22.0-30.0) sec Sodium 134 L (137-145) mmol/L Potassium (3.5-5.1) mmol/L Chloride (98-107) mmol/L Carbon Dioxide (22-30) mmol/L BUN 48 H (9-20) mg/dL Creatinine 1.81 H (0.66-1.25) mg/dL Glucose 189 H (74-99) mg/dL POC Glucose (mg/dL) 315 H 246 H (70-110) mg/dL AST (17-59) U/L Troponin I (0.000-0.034) ng/mL Amylase (30-110) U/L Lipase (23-300) U/L Urine Protein (Negative) Urine Glucose (UA) (Negative) Urine Ketones (Negative) Urine Bilirubin (Negative) Urine Opiates Screen (NotDetected) U Benzodiazepines Scrn (NotDetected) 09/05/23 09/05/23 09/05/23 Range/Units 00:10 00:11 00:54 WBC (3.8-10.6) k/uL RBC (4.30-5.90) m/uL Hgb (13.0-17.5) gm/dL Hct (39.0-53.0) % MCV (80.0-100.0) fL Neutrophils # (1.3-7.7) k/uL APTT (22.0-30.0) sec Sodium (137-145) mmol/L Potassium (3.5-5.1) mmol/L Chloride (98-107) mmol/L Carbon Dioxide (22-30) mmol/L BUN (9-20) mg/dL Creatinine (0.66-1.25) mg/dL Glucose (74-99) mg/dL POC Glucose (mg/dL) 195 H 190 H (70-110) mg/dL AST (17-59) U/L Troponin I 45.300 H* (0.000-0.034) ng/mL Amylase (30-110) U/L Lipase (23-300) U/L Urine Protein (Negative) Urine Glucose (UA) (Negative) Urine Ketones (Negative) Urine Bilirubin (Negative) Urine Opiates Screen (NotDetected) U Benzodiazepines Scrn (NotDetected) 09/05/23 09/05/23 09/05/23 Range/Units 02:02 02:04 02:04 WBC (3.8-10.6) k/uL RBC (4.30-5.90) m/uL Hgb (13.0-17.5) gm/dL Hct (39.0-53.0) % MCV (80.0-100.0) fL Neutrophils # (1.3-7.7) k/uL APTT 48.4 H (22.0-30.0) sec Sodium (137-145) mmol/L Potassium (3.5-5.1) mmol/L Chloride (98-107) mmol/L Carbon Dioxide (22-30) mmol/L BUN (9-20) mg/dL Creatinine (0.66-1.25) mg/dL Glucose (74-99) mg/dL POC Glucose (mg/dL) 151 H (70-110) mg/dL AST (17-59) U/L Troponin I 39.300 H* (0.000-0.034) ng/mL Amylase (30-110) U/L Lipase (23-300) U/L Urine Protein (Negative) Urine Glucose (UA) (Negative) Urine Ketones (Negative) Urine Bilirubin (Negative) Urine Opiates Screen (NotDetected) U Benzodiazepines Scrn (NotDetected) 09/05/23 09/05/23 09/05/23 Range/Units 03:02 04:08 04:12 WBC 14.4 H (3.8-10.6) k/uL RBC 3.36 L (4.30-5.90) m/uL Hgb 11.3 L (13.0-17.5) gm/dL Hct 33.0 L (39.0-53.0) % MCV (80.0-100.0) fL Neutrophils # 12.1 H (1.3-7.7) k/uL APTT (22.0-30.0) sec Sodium (137-145) mmol/L Potassium (3.5-5.1) mmol/L Chloride (98-107) mmol/L Carbon Dioxide (22-30) mmol/L BUN (9-20) mg/dL Creatinine (0.66-1.25) mg/dL Glucose (74-99) mg/dL POC Glucose (mg/dL) 124 H 116 H (70-110) mg/dL AST (17-59) U/L Troponin I (0.000-0.034) ng/mL Amylase (30-110) U/L Lipase (23-300) U/L Urine Protein (Negative) Urine Glucose (UA) (Negative) Urine Ketones (Negative) Urine Bilirubin (Negative) Urine Opiates Screen (NotDetected) U Benzodiazepines Scrn (NotDetected) 09/05/23 09/05/23 09/05/23 Range/Units 04:12 04:12 05:10 WBC (3.8-10.6) k/uL RBC (4.30-5.90) m/uL Hgb (13.0-17.5) gm/dL Hct (39.0-53.0) % MCV (80.0-100.0) fL Neutrophils # (1.3-7.7) k/uL APTT (22.0-30.0) sec Sodium 136 L (137-145) mmol/L Potassium 3.4 L (3.5-5.1) mmol/L Chloride (98-107) mmol/L Carbon Dioxide (22-30) mmol/L BUN 43 H (9-20) mg/dL Creatinine 1.51 H (0.66-1.25) mg/dL Glucose 104 H (74-99) mg/dL POC Glucose (mg/dL) (70-110) mg/dL AST (17-59) U/L Troponin I 33.200 H* (0.000-0.034) ng/mL Amylase 371 H* (30-110) U/L Lipase 2763 H (23-300) U/L Urine Protein (Negative) Urine Glucose (UA) (Negative) Urine Ketones (Negative) Urine Bilirubin (Negative) Urine Opiates Screen Detected H (NotDetected) U Benzodiazepines Scrn Detected H (NotDetected) 09/05/23 09/05/23 Range/Units 05:10 06:06 WBC (3.8-10.6) k/uL RBC (4.30-5.90) m/uL Hgb (13.0-17.5) gm/dL Hct (39.0-53.0) % MCV (80.0-100.0) fL Neutrophils # (1.3-7.7) k/uL APTT (22.0-30.0) sec Sodium (137-145) mmol/L Potassium (3.5-5.1) mmol/L Chloride (98-107) mmol/L Carbon Dioxide (22-30) mmol/L BUN (9-20) mg/dL Creatinine (0.66-1.25) mg/dL Glucose (74-99) mg/dL POC Glucose (mg/dL) 111 H (70-110) mg/dL AST (17-59) U/L Troponin I (0.000-0.034) ng/mL Amylase (30-110) U/L Lipase (23-300) U/L Urine Protein Trace H (Negative) Urine Glucose (UA) 2+ H (Negative) Urine Ketones 1+ H (Negative) Urine Bilirubin 1+ H (Negative) Urine Opiates Screen (NotDetected) U Benzodiazepines Scrn (NotDetected) Thrombosis Risk Factor Assmnt - Choose All That Apply Each Factor Represents 1 point: Acute AR, Age 41-60 years Thrombosis Risk Factor Assessment Total Risk Factor Score: 2 Thrombosis Risk Factor Assessment Level: Low Risk Assessment and Plan Assessment: Thereafter diabetic ketoacidosis, and then Closed Chest pain with significantly elevated troponin suspicious for non-STEMI Acute pancreatitis, alcoholic Alcohol use disorder Paroxysmal atrial fibrillation on a blood thinner at home History of coronary artery disease status post stent 2 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 Nicotine dependence Plan: Continue with heparin drip Insulin drip which escaped even if an Endo Close as patient is currently nothing by mouth for pancreatitis and cardiac evaluation On CIWA protocol and thiamine Protonix Continue with normal saline Pulmonary and cardiology as well as GI consult Labs and medication were reviewed.. Continue same treatment. Continue with symptomatic treatment. Resume home medication. Monitor labs and vitals. DVT and GI prophylaxis. Further recommendations as per clinical course of the patient DVT prophylaxis: heparin GI Prophylaxis: Ppi Prognosis is guarded
[2023-09-05] MEDS ORDERED: DEXTROSE 50% SYRINGE 50 ML IVP PRN ×2 (08:01)
[2023-09-05 08:02] LABS: Glucose,Whole Blood 146 mg/dL (70-110)
[2023-09-05] MEDS: D5-0.45% NACL WITH KCL 20MEQ/L 1,000 ML IV SCH (08:09)
--- NOTE | 2023-09-05 08:34 | US ---
EXAMINATION TYPE: US abdomen complete DATE OF EXAM: 09/05/2023 COMPARISON: CT abdomen and pelvis 09/04/2023 CLINICAL INDICATION: Male, 57 years old with history of acute pancreatitis; pancreatitis, vomiting TECHNIQUE: Multiple sonographic images of the abdomen are obtained. 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 The intrahepatic portion of the IVC and proximal abdominal aorta are within normal limits. Small amount of gallbladder stones/sludge identified. No wall thickening or surroundi ng fluid. Common bile duct is unremarkable. The visualized portions of the pancreas are heterogenous . No definitive peripancreatic fluid collection. The spleen is unremarkable. Kidneys are symmetric and free of hydronephrosis. No renal lesions are seen. IMPRESSION: 1. Heterogenous pancreas correlating with recent CT suggestive of pancreatitis. 2. Cholelithiasis/biliary sludge without evidence for acute cholecystitis.
[2023-09-05] MEDS ORDERED: NON FORMULARY DRUG (Omeprazole [Omeprazole] 40 MG Capsule.Dr) PO SCH (09:00)
[2023-09-05] MEDS ORDERED: D5-0.45% NACL WITH KCL 20MEQ/L 1,000 ML IV SCH (09:00)
[2023-09-05] MEDS: PANTOPRAZOLE 40 MG/10 ML VIAL IV SCH (09:09)
[2023-09-05] MEDS: INSULIN DETEMIR (LEVEMIR) 100 UNIT/ML SYR SQ SCH (09:09)
--- NOTE | 2023-09-05 10:01 | P.CRDCN ---
History of Present Illness Consult date: 09/05/23 Consult reason: non-Q-wave DC History of present illness: The patient is a 57-year-old male with extensive cardiac history who presented to the hospital with nausea, vomiting, and abdominal discomfort which had been occurring for approximately 2-3 days.. He was found to be in DKA and acute renal failure. EKG on arrival showed no significant ST changes. Troponins elevated at 62, 45, 39, and 33. Cardiology was notified for a non-ST elevated myocardial infarction, however coronary angiogram was delayed due to initial creatinine being 2.5. DIAGNOSTICS: Chest x-ray shows no acute cardiopulmonary process Abdominal ultrasound shows heterogeneous pancreas suggesting pancreatitis as well as cholelithiasis/biliary sludge Computed tomography scan the abdomen shows peripancreatic inflammation Lab data: WBC 14.4, hemoglobin 13.0, hematocrit 33.0, platelet 230, sodium 136, potassium 3.4, BUN 43, creatinine 1.51, hemoglobin A1c 8.1, troponins 62, 45, 39, 33, triglycerides 63, BNP 12,100, amylase 371, lipase 2763, urine toxicity positive for opiates and benzodiazepines PAST MEDICAL HISTORY: Multivessel coronary artery disease, Diabetes mellitus, Current smoker REVIEW OF SYSTEMS: No fever or chills. No cough or expectoration. No diapho resis. Patient denies headache, dizziness, blurred vision, double vision. Positive for abdominal discomfort. Positive for nausea and vomiting. No hematochezia. No hematemesis. Denies any black stools or blood in his stools. Denies dysuria or hematuria. No muscle weakness or numbness. Mild chest d iscomfort. PHYSICAL EXAMINATION: This is a 57-year-old male in no apparent distress at the time of my examination. HEENT: Head is atraumatic, normocephalic. Pupils are equal, round. Sclerae anicteric. Conjunctivae are clear. Mucous membranes of the mouth are moist. Neck is supple. There is no jugular venous distention. No carotid bruit is heard. CHEST EXAMINATION: Lungs are clear to auscultation. No chest wall tenderness is noted on palpation or with deep breathing. HEART EXAMINATION: Heart regular rate and rhythm. S1, S2 heard. No murmurs, gallops or rub. ABDOMEN: Soft, tender to palpation. Bowel sounds are heard. No organomegaly noted. EXTREMITIES: 2+ peripheral pulses with no evidence of peripheral edema and no calf tenderness noted. NEUROLOGIC EXAMINATION: Patient is awake, alert and oriented x3. FINAL ASSESSMENT AND PLAN: Non-ST elevated myocardial infarction History of multivessel coronary artery disease Congestive heart failure, elevated BNP Diabetic ketoacidosis Acute renal failure with baseline creatinine at 1.5 Pancreatitis Current smoker PLAN: Continue heparin drip Proceed with coronary angiogram to assess previous lesion noted to be in the LAD Awaiting echocardiogram results Further recommendations to be based upon clinical course I am dictating on behalf of Dr Cirilo Sanchez's history/physical and assessment/plan. Past Medical History Past Medical History: Coronary Artery Disease (CAD), Diabetes Mellitus, Myocardi al Infarction (DC) Additional Past Medical History / Comment(s): Pneumothorax Last Myocardial Infarction Date:: nov 2022 History of Any Multi-Drug Resistant Organisms: None Reported Past Surgical History: Heart Catheterization With Stent Additional Past Surgical History / Comment(s): Chest tube Date of Last Stent Placement:: 12/11/22 Past Psychological History: No Psychological Hx Reported Smoking Status: Current every day smoker Past Alcohol Use History: None Reported Past Drug Use History: None Reported - Past Family History Father Family Medical History: Deep Vein Thrombosis (DVT), Myocardial Infarction (DC) Mother Family Medical History: AFIB Medications and Allergies Home Medications Medication Instructions Recorded Confirmed Type ALPRAZolam [Xanax] 0.5 mg PO BID PRN 12/11/22 09/04/23 History INSULIN LISPRO (For Pump) [humaLOG 0.01 units SQ-PUMP CONTINUOUS 12/11/22 09/04/23 History (For Pump)] Omeprazole 40 mg PO DAILY 12/11/22 09/04/23 History Atorvastatin [Lipitor] 80 mg PO HS 30 Days #30 tab 12/14/22 09/04/23 Rx Nitroglycerin Sl Tabs [Nitrostat] 0.4 mg SUBLINGUAL Q5M PRN #30 tab 12/14/22 09/04/23 Rx Prasugrel [Effient] 10 mg PO DAILY 30 Days #30 tab 12/14/22 09/04/23 Rx Spironolactone [Aldactone] 25 mg PO DAILY #30 tab 12/14/22 09/04/23 Rx lisinopriL [Zestril] 2.5 mg PO DAILY #30 tab 12/14/22 09/04/23 Rx Amiodarone [Cordarone] 200 mg PO DAILY #0 tab 12/27/22 09/04/23 Rx Apixaban [Eliquis] 2.5 mg PO BID 09/04/23 09/04/23 History Metoprolol Succinate (ER) [Toprol 25 mg PO DAILY 09/04/23 09/04/23 History XL] Multivitamins, Thera [Multivitamin 1 tab PO DAILY 09/04/23 09/04/23 History (formulary)] Allergies Allergy/AdvReac Type Severity Reaction Status Date / Time No Known Allergies Allergy Verified 09/04/23 19:30 Physical Exam Vitals: Vital Signs Temp Pulse Resp BP Pulse Ox 09/05/23 07:44 96 09/05/23 06:00 78 19 117/56 98 09/05/23 05:30 76 13 96 09/05/23 05:00 79 17 112/65 92 L 09/05/23 04:30 79 20 92 L 09/05/23 04:00 78 17 116/75 91 L 09/05/23 03:30 76 20 95 09/05/23 03:00 79 15 115/58 93 L 09/05/23 02:30 80 20 91 L 09/05/23 02:00 80 18 117/69 91 L 09/05/23 01:30 81 20 93 L 09/05/23 01:00 81 19 122/67 91 L 09/05/23 00:30 81 14 95 09/05/23 00:00 98.1 F 74 18 123/71 93 L 09/04/23 23:36 79 13 09/04/23 23:14 80 18 118/77 96 09/04/23 22:13 78 18 116/65 95 09/04/23 21:25 75 18 121/67 98 09/04/23 19:50 73 18 130/77 96 09/04/23 17:48 97.9 F 75 16 110/71 99 Intake and Output 09/04/23 09/05/23 09/05/23 22:59 06:59 14:59 Intake Total 1099.741 Output Total 30 Balance 1069.741 Intake: IV 1050 D5-0.45% NaCl with KCl 1050 20Meq/l 1,000 ml @ 150 mls/hr IV .Q6H40M [facility] Rx# :[id number] Intake, IV Titration 49.741 Amount Insulin Regular 100 unit 49.741 In Sodium Chloride 0.9% 100 ml @ 0.1 UNITS/KG/HR 8.475 mls/hr IV .[id number] [facility] Rx#:[id number] Output: Urine 30 Other: Voiding Method Urinal Weight 83.915 kg 93.6 kg Results 09/05/23 04:12 09/05/23 04:12 Cardiac Enzymes 09/04/23 09/04/23 09/05/23 Range/Units 18:46 18:46 00:10 AST 174 H (17-59) U/L Troponin I 62.400 H* 45.300 H* (0.000-0.034) ng/mL 09/05/23 09/05/23 Range/Units 02:04 04:12 AST (17-59) U/L Troponin I 39.300 H* 33.200 H* (0.000-0.034) ng/mL Coagulation 09/04/23 09/05/23 09/05/23 Range/Units 18:46 02:04 04:12 PT 10.1 10.4 (10.0-12.5) sec APTT 24.3 48.4 H (22.0-30.0) sec Lipids 09/05/23 Range/Units 04:12 Triglycerides 63.20 (0.00-149.00) mg/dL CBC 09/04/23 09/05/23 Range/Units 18:46 04:12 WBC 10.7 H 14.4 H (3.8-10.6) k/uL RBC 3.58 L 3.36 L (4.30-5.90) m/uL Hgb 12.0 L 11.3 L (13.0-17.5) gm/dL Hct 36.5 L 33.0 L (39.0-53.0) % Plt Count 289 230 (150-450) k/uL Comprehensive Metabolic Panel 09/04/23 09/05/23 09/05/23 Range/Units 18:46 00:10 04:12 Sodium 131 L 134 L 136 L (137-145) mmol/L Potassium 3.9 3.5 3.4 L (3.5-5.1) mmol/L Chloride 92 L 99 102 (98-107) mmol/L Carbon Dioxide 19 L 24 25 (22-30) mmol/L BUN 47 H 48 H 43 H (9-20) mg/dL Creatinine 2.43 H 1.81 H 1.51 H (0.66-1.25) mg/dL Glucose 457 H 189 H 104 H (74-99) mg/dL Calcium 9.2 (8.4-10.2) mg/dL AST 174 H (17-59) U/L ALT 35 (4-49) U/L Alkaline Phosphatase 38 (38-126) U/L Total Protein 6.6 (6.3-8.2) g/dL Albumin 4.0 (3.5-5.0) g/dL Current Medications Generic Name Dose Route Start Last Admin Trade Name Freq PRN Reason Stop Dose Admin Amiodarone HCl 200 mg 09/05/23 09:00 Amiodarone 200 Mg Tab PO DAILY [facility] Atorvastatin Calcium 80 mg 09/05/23 21:00 Atorvastatin 80 Mg Tab PO HS [facility] Dextrose/Water 25 ml 09/05/23 08:01 Dextrose 50% Syringe 50 Ml IVP PER PROTOCOL PRN Hypoglycemia Protocol Dextrose/Water 50 ml 09/05/23 08:01 Dextrose 50% Syringe 50 Ml IVP PER PROTOCOL PRN Hypoglycemia Protocol Heparin Sodium (Porcine) 0 unit 09/04/23 20:21 Heparin Sodium 1,000 Un/Ml (10ml Vl) IV PER PROTOCOL PRN Low PTT Protocol Heparin Sodium/Sodium Chloride 250 mls @ 10.07 mls/hr 09/04/23 20:30 09/04/23 20:50 25,000 unit/ Sodium Chloride IV 12 units/kg/hr .Q24H JARED 10.07 mls/hr Administration Protocol 12 UNITS/KG/HR Potassium Chloride/Dextrose/Sod Cl 1,000 mls @ 75 mls/hr 09/05/23 09:00 09/05/23 09:09 D5%-1/2ns-Kcl 20 Meq/L Iv Solution IV 75 mls/hr .[id number] [facility]ED Administration Insulin Aspart 0 unit 09/05/23 12:00 Insulin Aspart (Novolog) 100 Unit/Ml Vial SQ Q6HR [facility] Protocol Insulin Detemir 14 unit 09/05/23 09:00 09/05/23 09:09 Insulin Detemir (Levemir) 100 Unit/Ml Syr SQ 14 unit DAILY@0700 [facility] Administration Lorazepam 1 mg 09/04/23 23:43 Lorazepam 2 Mg/Ml Inj IV Q1HR PRN CIWA 10 to 15 Lorazepam 1 mg 09/04/23 23:43 Lorazepam 2 Mg/Ml Inj IV Q2HR PRN CIWA 8 or 9 Lorazepam 2 mg 09/04/23 23:43 Lorazepam 2 Mg/Ml Inj IV 09/06/23 23:44 Q10M PRN CIWA 16 or higher Metoprolol Succinate 25 mg 09/05/23 09:00 Metoprolol Succinate (Er) 25 Mg Tab.Er.24h PO DAILY [facility] Morphine Sulfate 4 mg 09/04/23 23:43 09/05/23 06:50 Morphine Sulfate 4 Mg/Ml Syringe IVP 4 mg Q4HR PRN Administration Pain Naloxone HCl 0.2 mg 09/04/23 23:33 Naloxone 0.4 Mg/Ml 1 Ml Vial IV Q2M PRN Opioid Reversal Ondansetron HCl 4 mg 09/04/23 23:46 09/05/23 06:50 Ondansetron 4 Mg/2 Ml Vial IVP 4 mg Q6HR PRN Administration Nausea And Vomiting Pantoprazole Sodium 40 mg 09/05/23 09:00 09/05/23 09:09 Pantoprazole 40 Mg/10 Ml Vial IV 40 mg DAILY JARED Administration Thiamine HCl 100 mg 09/05/23 09:00 Thiamine 100 Mg Tab PO DAILY JARED Intake and Output 09/04/23 09/05/23 09/05/23 22:59 06:59 14:59 Intake Total 1099.741 Output Total 30 Balance 1069.741 Intake: IV 1050 D5-0.45% NaCl with KCl 1050 20Meq/l 1,000 ml @ 150 mls/hr IV .[id number] JARED Rx# :[id number] Intake, IV Titration 49.741 Amount Insulin Regular 100 unit 49.741 In Sodium Chloride 0.9% 100 ml @ 0.1 UNITS/KG/HR 8.475 mls/hr IV .[id number] JARED Rx#:[id number] Output: Urine 30 Other: Voiding Method Urinal Weight 83.915 kg 93.6 kg 09/05/23 04:12 09/05/23 04:12
[2023-09-05] MEDS: METOPROLOL SUCCINATE (ER) 25 MG TAB.ER.24H PO SCH (10:23)
[2023-09-05] MEDS: THIAMINE 100 MG TAB PO SCH (10:23)
[2023-09-05] MEDS: AMIODARONE 200 MG TAB PO SCH (10:23)
--- NOTE | 2023-09-05 10:46 | P.CONS ---
History of Present Illness - Reason for Consult Consult date: 09/05/23 Acute pancreatitis Requesting physician: Martha Long - Chief Complaint Nausea and vomiting - History of Present Illness This is a pleasant 57-year-old male with history of insulin dependent diabetes mellitus, alcohol abuse, myocardial infarction, coronary artery disease status post stenting, and tobacco dependence. He presented to the emergency department with complaints of intractable nausea and vomiting. He states emesis was nonbloody was associated with epigastric and right upper quadrant abdominal pain. He denies similar symptoms in the past. Denies any history of peptic ulcer disease. He states he has been significantly heavy drinker in the past and is still drinking about a pint at least 4 days a week. Denies any previous history of pancreatitis. He was admitted to the ICU for diabetic ketoacidosis and acute pancreatitis. Admitting labs was noted to have elevated lipase at 2023 . He had a CT of the abdomen and pelvis which reported. Pancreatic inflammation changes correlate with serum lipase for pancreatitis. No additional evidence for acute abdominal process. Gallbladder reports layering gallstones present. The patient denies any new medications, no recent antibiotics, again no previous history of pancreatitis, and no family history. Labs WBC 14.4 hemoglobin 11.3 hematocrit 33 platelet count 230,000 and are 0.9 sodium 136 potassium 3.4 BUN 43 creatinine 1.5 total bilirubin 0.6 AST 174 AST 35 alkaline phosphatase 38 troponin 33.2 amylase 371 lipase 2763 Review of Systems REVIEW OF SYSTEMS: CARDIOPULMONARY: No chest pain or shortness of breath. Gastrointestinal: Abdominal pain mostly in the right upper quadrant and epigastric region. Nausea with no vomiting. No hematemesis, coffee-ground emesis. No rectal bleeding, or melena. GENITOURINARY: No dysuria or hematuria. MUSCULOSKELETAL: Reports normal range of motion. SKIN: No rashes. No jaundice. ENDOCRINE: No chills, fevers. No excessive weight gain or loss. No polydipsia or polyuria. PSYCHIATRIC: Unremarkable. NEUROLOGY: No change in mental status. Denies dizziness, headache. ENT: Vision unremarkable. CONSTITUTIONAL: No recent weight loss. No fever, chills, night sweats. Past Medical History Past Medical History: Coronary Artery Disease (CAD), Diabetes Mellitus, Myocardial Infarction (HI) Additional Past Medical History / Comment(s): Pneumothorax Last Myocardial Infarction Date:: nov 2022 History of Any Multi-Drug Resistant Organisms: None Reported Past Surgical History: Heart Catheterization With Stent Additional Past Surgical History / Comment(s): Chest tube Date of Last Stent Placement:: 12/11/22 Past Psychological History: No Psychological Hx Reported Smoking Status: Current every day smoker Past Alcohol Use History: None Reported Past Drug Use History: None Reported - Past Family History Father Family Medical History: Deep Vein Thrombosis (DVT), Myocardial Infarction (HI) Mother Family Medical History: AFIB Medications and Allergies Home Medications Medication Instructions Recorded Confirmed Type ALPRAZolam [Xanax] 0.5 mg PO BID PRN 12/11/22 09/04/23 History INSULIN LISPRO (For Pump) [humaLOG 0.01 units SQ-PUMP CONTINUOUS 12/11/22 09/04/23 History (For Pump)] Omeprazole 40 mg PO DAILY 12/11/22 09/04/23 History Atorvastatin [Lipitor] 80 mg PO HS 30 Days #30 tab 12/14/22 09/04/23 Rx Nitroglycerin Sl Tabs [Nitrostat] 0.4 mg SUBLINGUAL Q5M PRN #30 tab 12/14/22 09/04/23 Rx Prasugrel [Effient] 10 mg PO DAILY 30 Days #30 tab 12/14/22 09/04/23 Rx Spironolactone [Aldactone] 25 mg PO DAILY #30 tab 12/14/22 09/04/23 Rx lisinopriL [Zestril] 2.5 mg PO DAILY #30 tab 12/14/22 09/04/23 Rx Amiodarone [Cordarone] 200 mg PO DAILY #0 tab 12/27/22 09/04/23 Rx Apixaban [Eliquis] 2.5 mg PO BID 09/04/23 09/04/23 History Metoprolol Succinate (ER) [Toprol 25 mg PO DAILY 09/04/23 09/04/23 History XL] Multivitamins, Thera [Multivitamin 1 tab PO DAILY 09/04/23 09/04/23 History (formulary)] Allergies Allergy/AdvReac Type Severity Reaction Status Date / Time No Known Allergies Allergy Verified 09/04/23 19:30 Physical Exam Vitals: Vital Signs Temp Pulse Resp BP Pulse Ox 09/05/23 10:00 83 16 114/59 95 09/05/23 09:30 82 18 114/59 96 09/05/23 09:00 77 13 129/73 96 09/05/23 08:30 98.1 F 80 15 129/73 96 09/05/23 08:00 78 19 120/70 96 09/05/23 07:44 96 09/05/23 07:30 79 16 120/70 95 09/05/23 07:00 75 13 124/71 97 09/05/23 06:30 79 12 124/71 97 09/05/23 06:00 78 19 117/56 98 09/05/23 05:30 76 13 96 09/05/23 05:00 79 17 112/65 92 L 09/05/23 04:30 79 20 92 L 09/05/23 04:00 78 17 116/75 91 L 09/05/23 03:30 76 20 95 09/05/23 03:00 79 15 115/58 93 L 09/05/23 02:30 80 20 91 L 09/05/23 02:00 80 18 117/69 91 L 09/05/23 01:30 81 20 93 L 09/05/23 01:00 81 19 122/67 91 L 09/05/23 00:30 81 14 95 09/05/23 00:00 98.1 F 74 18 123/71 93 L 09/04/23 23:36 79 13 09/04/23 23:14 80 18 118/77 96 09/04/23 22:13 78 18 116/65 95 09/04/23 21:25 75 18 121/67 98 09/04/23 19:50 73 18 130/77 96 09/04/23 17:48 97.9 F 75 16 110/71 99 Intake and Output 09/04/23 09/05/23 09/05/23 22:59 06:59 14:59 Intake Total 1099.741 225 Output Total 30 250 Balance 1069.741 -25 Intake: IV 1050 0 D5-0.45% NaCl with KCl 1050 0 20Meq/l 1,000 ml @ 150 mls/hr IV .Q6H40M [facility] Rx# :[id number] Intake, IV Titration 49.741 225 Amount D5-0.45% NaCl with KCl 225 20Meq/l 1,000 ml @ 75 mls /hr IV .[id number] [facility] Rx#: [id number] Insulin Regular 100 unit 49.741 In Sodium Chloride 0.9% 100 ml @ 0.1 UNITS/KG/HR 8.475 mls/hr IV .[id number] [facility] Rx#:[id number] Sodium Chloride 0.9% 1, 0 000 ml @ 130 mls/hr IV . Q7H42M [facility] Rx#:[id number] Oral 0 Tube Feeding 0 Output: Urine 30 250 Other: Voiding Method Urinal Weight 83.915 kg 93.6 kg General appearance: The patient is alert, oriented, appears in no acute distress. HET: Head is normocephalic and atraumatic. Conjunctiva pink. Sclera anicteric. Neck: Supple without lymphadenopathy. Trachea midline. Heart: Regular. Lungs: Equal expansion, normal respiratory effort. Abdomen: Soft, right upper quadrant and epigastric tenderness, nondistended. No guarding or rigidity. Skin: No rashes. No jaundice. Extremities: Normal skin color and turgor. No pedal edema. Neurological: No focal deficits. Alert and oriented x3. Results CBC & Chem 7: 09/05/23 04:12 09/05/23 04:12 Labs: Abnormal Lab Results - Last 24 Hours (Table) 09/04/23 09/04/23 09/04/23 Range/Units 18:46 18:46 18:46 WBC 10.7 H (3.8-10.6) k/uL RBC 3.58 L (4.30-5.90) m/uL Hgb 12.0 L (13.0-17.5) gm/dL Hct 36.5 L (39.0-53.0) % MCV 101.8 H (80.0-100.0) fL Neutrophils # 9.1 H (1.3-7.7) k/uL APTT (22.0-30.0) sec Sodium 131 L (137-145) mmol/L Potassium (3.5-5.1) mmol/L Chloride 92 L (98-107) mmol/L Carbon Dioxide 19 L (22-30) mmol/L BUN 47 H (9-20) mg/dL Creatinine 2.43 H (0.66-1.25) mg/dL Glucose 457 H (74-99) mg/dL POC Glucose (mg/dL) (70-110) mg/dL Hemoglobin A1c (<=6.0) % AST 174 H (17-59) U/L Troponin I 62.400 H* (0.000-0.034) ng/mL Amylase (30-110) U/L Lipase 2224 H (23-300) U/L Urine Protein (Negative) Urine Glucose (UA) (Negative) Urine Ketones (Negative) Urine Bilirubin (Negative) Urine Opiates Screen (NotDetected) U Benzodiazepines Scrn (NotDetected) 09/04/23 09/04/23 09/05/23 Range/Units 21:47 22:56 00:10 WBC (3.8-10.6) k/uL RBC (4.30-5.90) m/uL Hgb (13.0-17.5) gm/dL Hct (39.0-53.0) % MCV (80.0-100.0) fL Neutrophils # (1.3-7.7) k/uL APTT (22.0-30.0) sec Sodium 134 L (137-145) mmol/L Potassium (3.5-5.1) mmol/L Chloride (98-107) mmol/L Carbon Dioxide (22-30) mmol/L BUN 48 H (9-20) mg/dL Creatinine 1.81 H (0.66-1.25) mg/dL Glucose 189 H (74-99) mg/dL POC Glucose (mg/dL) 315 H 246 H (70-110) mg/dL Hemoglobin A1c (<=6.0) % AST (17-59) U/L Troponin I (0.000-0.034) ng/mL Amylase (30-110) U/L Lipase (23-300) U/L Urine Protein (Negative) Urine Glucose (UA) (Negative) Urine Ketones (Negative) Urine Bilirubin (Negative) Urine Opiates Screen (NotDetected) U Benzodiazepines Scrn (NotDetected) 09/05/23 09/05/23 09/05/23 Range/Units 00:10 00:11 00:54 WBC (3.8-10.6) k/uL RBC (4.30-5.90) m/uL Hgb (13.0-17.5) gm/dL Hct (39.0-53.0) % MCV (80.0-100.0) fL Neutrophils # (1.3-7.7) k/uL APTT (22.0-30.0) sec Sodium (137-145) mmol/L Potassium (3.5-5.1) mmol/L Chloride (98-107) mmol/L Carbon Dioxide (22-30) mmol/L BUN (9-20) mg/dL Creatinine (0.66-1.25) mg/dL Glucose (74-99) mg/dL POC Glucose (mg/dL) 195 H 190 H (70-110) mg/dL Hemoglobin A1c (<=6.0) % AST (17-59) U/L Troponin I 45.300 H* (0.000-0.034) ng/mL Amylase (30-110) U/L Lipase (23-300) U/L Urine Protein (Negative) Urine Glucose (UA) (Negative) Urine Ketones (Negative) Urine Bilirubin (Negative) Urine Opiates Screen (NotDetected) U Benzodiazepines Scrn (NotDetected) 09/05/23 09/05/23 09/05/23 Range/Units 02:02 02:04 02:04 WBC (3.8-10.6) k/uL RBC (4.30-5.90) m/uL Hgb (13.0-17.5) gm/dL Hct (39.0-53.0) % MCV (80.0-100.0) fL Neutrophils # (1.3-7.7) k/uL APTT 48.4 H (22.0-30.0) sec Sodium (137-145) mmol/L Potassium (3.5-5.1) mmol/L Chloride (98-107) mmol/L Carbon Dioxide (22-30) mmol/L BUN (9-20) mg/dL Creatinine (0.66-1.25) mg/dL Glucose (74-99) mg/dL POC Glucose (mg/dL) 151 H (70-110) mg/dL Hemoglobin A1c (<=6.0) % AST (17-59) U/L Troponin I 39.300 H* (0.000-0.034) ng/mL Amylase (30-110) U/L Lipase (23-300) U/L Urine Protein (Negative) Urine Glucose (UA) (Negative) Urine Ketones (Negative) Urine Bilirubin (Negative) Urine Opiates Screen (NotDetected) U Benzodiazepines Scrn (NotDetected) 09/05/23 09/05/23 09/05/23 Range/Units 03:02 04:08 04:12 WBC 14.4 H (3.8-10.6) k/uL RBC 3.36 L (4.30-5.90) m/uL Hgb 11.3 L (13.0-17.5) gm/dL Hct 33.0 L (39.0-53.0) % MCV (80.0-100.0) fL Neutrophils # 12.1 H (1.3-7.7) k/uL APTT (22.0-30.0) sec Sodium (137-145) mmol/L Potassium (3.5-5.1) mmol/L Chloride (98-107) mmol/L Carbon Dioxide (22-30) mmol/L BUN (9-20) mg/dL Creatinine (0.66-1.25) mg/dL Glucose (74-99) mg/dL POC Glucose (mg/dL) 124 H 116 H (70-110) mg/dL Hemoglobin A1c (<=6.0) % AST (17-59) U/L Troponin I (0.000-0.034) ng/mL Amylase (30-110) U/L Lipase (23-300) U/L Urine Protein (Negative) Urine Glucose (UA) (Negative) Urine Ketones (Negative) Urine Bilirubin (Negative) Urine Opiates Screen (NotDetected) U Benzodiazepines Scrn (NotDetected) 09/05/23 09/05/23 09/05/23 Range/Units 04:12 04:12 04:12 WBC (3.8-10.6) k/uL RBC (4.30-5.90) m/uL Hgb (13.0-17.5) gm/dL Hct (39.0-53.0) % MCV (80.0-100.0) fL Neutrophils # (1.3-7.7) k/uL APTT (22.0-30.0) sec Sodium 136 L (137-145) mmol/L Potassium 3.4 L (3.5-5.1) mmol/L Chloride (98-107) mmol/L Carbon Dioxide (22-30) mmol/L BUN 43 H (9-20) mg/dL Creatinine 1.51 H (0.66-1.25) mg/dL Glucose 104 H (74-99) mg/dL POC Glucose (mg/dL) (70-110) mg/dL Hemoglobin A1c 8.1 H (<=6.0) % AST (17-59) U/L Troponin I 33.200 H* (0.000-0.034) ng/mL Amylase 371 H* (30-110) U/L Lipase 2763 H (23-300) U/L Urine Protein (Negative) Urine Glucose (UA) (Negative) Urine Ketones (Negative) Urine Bilirubin (Negative) Urine Opiates Screen (NotDetected) U Benzodiazepines Scrn (NotDetected) 09/05/23 09/05/23 09/05/23 Range/Units 05:10 05:10 06:06 WBC (3.8-10.6) k/uL RBC (4.30-5.90) m/uL Hgb (13.0-17.5) gm/dL Hct (39.0-53.0) % MCV (80.0-100.0) fL Neutrophils # (1.3-7.7) k/uL APTT (22.0-30.0) sec Sodium (137-145) mmol/L Potassium (3.5-5.1) mmol/L Chloride (98-107) mmol/L Carbon Dioxide (22-30) mmol/L BUN (9-20) mg/dL Creatinine (0.66-1.25) mg/dL Glucose (74-99) mg/dL POC Glucose (mg/dL) 111 H (70-110) mg/dL Hemoglobin A1c (<=6.0) % AST (17-59) U/L Troponin I (0.000-0.034) ng/mL Amylase (30-110) U/L Lipase (23-300) U/L Urine Protein Trace H (Negative) Urine Glucose (UA) 2+ H (Negative) Urine Ketones 1+ H (Negative) Urine Bilirubin 1+ H (Negative) Urine Opiates Screen Detected H (NotDetected) U Benzodiazepines Scrn Detected H (NotDetected) 09/05/23 09/05/23 Range/Units 07:01 08:00 WBC (3.8-10.6) k/uL RBC (4.30-5.90) m/uL Hgb (13.0-17.5) gm/dL Hct (39.0-53.0) % MCV (80.0-100.0) fL Neutrophils # (1.3-7.7) k/uL APTT (22.0-30.0) sec Sodium (137-145) mmol/L Potassium (3.5-5.1) mmol/L Chloride (98-107) mmol/L Carbon Dioxide (22-30) mmol/L BUN (9-20) mg/dL Creatinine (0.66-1.25) mg/dL Glucose (74-99) mg/dL POC Glucose (mg/dL) 124 H 146 H (70-110) mg/dL Hemoglobin A1c (<=6.0) % AST (17-59) U/L Troponin I (0.000-0.034) ng/mL Amylase (30-110) U/L Lipase (23-300) U/L Urine Protein (Negative) Urine Glucose (UA) (Negative) Urine Ketones (Negative) Urine Bilirubin (Negative) Urine Opiates Screen (NotDetected) U Benzodiazepines Scrn (NotDetected) Comments: CT abdomen and pelvis without contrast reports. Pancreatic inflammation changes correlate with serum lipase for pancreatitis. No additional evidence for acute abdominal process. Appendix is normal. No obstructive uropathy. Abdominal ultrasound: Heterogeneous pancreas correlating with recent CT suggestive of pancreatitis. Cholelithiasis/biliary sludge without evidence for acute cholecystitis. The common bile duct is unremarkable. Assessment and Plan (1) Acute pancreatitis Narrative/Plan: 57-year-old male came in with nausea and vomiting for last 2 days duration in diabetic ketoacidosis. He was noted to have elevated lipase, CT abdomen and pelvis showing acute uncomplicated pancreatitis. Patient admitted to the ICU. Complains of right upper quadrant and epigastric pain with nausea, vomiting has resolved. CT also states showed layering gallstones in the gallbladder, gallbladder ultrasound ordered and reviewed showing cholelithiasis with sludge, no cholecystitis. Patient's first with pancreatitis, he does have a significant history and current alcohol use. He drinks a pint 4 days a week. Likely etiology for acute pancreatitis is alcohol induced, less likely but need to consider gallstone pancreatitis however total bilirubin and LFTs currently normal, as well as possibly medication induced however patient denies any new medications. Will repeat LFTs. For now continue to treat symptomatically with aggressive IV hydration, pain medications, and patient may have ice chips. Current Visit: Yes Status: Acute Code(s): K85.90 - ACUTE PANCREATITIS WITH OUT NECROSIS OR INFECTION, UNSP SNOMED Code(s): 412087657 (2) Coronary artery disease Current Visit: Yes Status: Acute Code(s): I25.10 - ATHSCL HEART DISEASE OF [place] CORONARY ARTERY W/O ANG PCTRS SNOMED Code(s): 04281954 (3) LOLLY (acute kidney injury) Current Visit: Yes Status: Acute Code(s): N17.9 - ACUTE KIDNEY FAILURE, UNSPECIFIED SNOMED Code(s): 85890235 (4) DKA (diabetic ketoacidosis) Current Visit: Yes Status: Acute Code(s): E11.10 - TYPE 2 DIABETES MELLITUS WITH KETOACIDOSIS WITHOUT COMA SNOMED Code(s): 586467656 (5) Nausea and vomiting Current Visit: Yes Status: Acute Code(s): R11.2 - NAUSEA WITH VOMITING, UNSPECIFIED SNOMED Code(s): 44047089 (6) Elevated troponin Current Visit: No Status: Acute Code(s): R77.8 - OTHER SPECIFIED ABNORMALITIES OF PLASMA PROTEINS SNOMED Code(s): 108441827 Plan: 1. Continue symptomatic and supportive care 2. Continue aggressive IV hydration 3. Pain medication as needed 4. Antiemetics as needed 5. Protonix 40 mg daily GI prophylaxis 6. Gallbladder ultrasound ordered and reviewed 7. May have clear liquid diet 8. Discussed with patient importance of alcohol abstinence, smoking cessation 9. Further recommendations forthcoming based on clinical course Thank you for this consultation, we will continue to follow. Dr. Alyson Jensen I agree with the dictator's note, documented as a scribe by Susan Pugh.
[2023-09-05 10:59] LABS: ALT 29 U/L (4-49); AST 112 U/L (17-59); Alkaline Phosphatase 33 U/L (38-126)
--- NOTE | 2023-09-05 11:15 | CA ---
Transthoracic Echo Report Name: Sharif Quinn Age: 57 Gender: M : 1965 Exam Date: 09/05/2023 08:31 Exam Location: [place] [facility] Ht (in): 76 Wt (lb): 206 Ordering Physician: Mumtaz Royal MD Attending/Referring Phys: Windows System Admin Renetta Rey [facility] Procedure CPT: Indications: nstemi Cardiac Hx: Technical Quality: Fair Contrast 1: Total Dose (mL): Contrast 2: Total Dose (mL): MEASUREMENTS (Male / Female) Normal Values 2D ECHO LV Diastolic Diameter PLAX 5.5 cm 4.2 - 5.9 / 3.9 - 5.3 cm LV Systolic Diameter PLAX 4.4 cm IVS Diastolic Thickness 1.0 cm 0.6 - 1.0 / 0.6 - 0.9 cm LVPW Diastolic Thickness 1.1 cm 0.6 - 1.0 / 0.6 - 0.9 cm LV Relative Wall Thickness 0.4 LVOT Diameter 2.0 cm Ascending Aorta Diameter 3.5 cm M-MODE Aortic Root Diameter MM 3.4 cm LA Systolic Diameter MM 4.8 cm LA Ao Ratio MM 1.4 AV Cusp Separation MM 2.2 cm DOPPLER AV Peak Velocity 129.2 cm/s AV Peak Gradient 6.7 mmHg AV Mean Velocity 97.6 cm/s AV Mean Gradient 4.1 mmHg AV Velocity Time Integral 24.3 cm LVOT Peak Velocity 93.6 cm/s LVOT Peak Gradient 3.5 mmHg LVOT Velocity Time Integral 19.3 cm LVOT Stroke Volume 61.0 cm??? LVOT Stroke Volume Index 27.2 ml/m??? LVOT Cardiac Index 2148.4 cm???/min???m??? AV Area Cont Eq vti 2.5 cm??? AV Area Cont Eq pk 2.3 cm??? MR Peak Velocity 471.4 cm/s MR Peak Gradient 88.9 mmHg Mitral E Point Velocity 86.9 cm/s Mitral A Point Velocity 53.5 cm/s Mitral E to A Ratio 1.6 MV Deceleration Time 183.7 ms LV E' Lateral Velocity 12.7 cm/s Mitral E to LV E' Lateral Ratio 6.8 LV E' Septal Velocity 3.9 cm/s Mitral E to LV E' Septal Ratio 22.3 TR Peak Velocity 265.5 cm/s TR Peak Gradient 28.2 mmHg Right Atrial Pressure 15.0 mmHg Pulmonary Artery Systolic Pressu 43.2 mmHg Right Ventricular Systolic Press 43.2 mmHg FINDINGS Left Ventricle Mildly increased left ventricular wall thickness. Left ventricular cavity size at the upper limits of normal. Left ventricular ejection fraction is estimated at 40%. Apical anterior hypokinesis. [place] hypokinetic. Apical inferior hypokinesis. Apical septum hypokinesis. Moderately reduced left ventricular systolic function. Right Ventricle Moderate right ventricular dilatation. Moderate pulmonary hypertension. Right Atrium Mild right atrial dilatation. Left Atrium Mild left atrial dilatation. Mitral Valve Mitral valve thickened. Moderate mitral regurgitation. Aortic Valve Trileaflet aortic valve. No aortic valve stenosis or regurgitation. Tricuspid Valve Structurally normal tricuspid valve. Mild tricuspid regurgitation. Pulmonic Valve Structurally normal pulmonic valve. Trace pulmonic regurgitation. Pericardium No pericardial effusion. Aorta Normal size aortic root and proximal ascending aorta. CONCLUSIONS Normal LV size with wall motion abnormalities suggestive ischemic cardiomyopathy and ejection fraction of 40%. Right ventricle is enlarged to moderate extent. There is moderate mitral regurgitation. Mild to moderate tricuspid regurgitation with mild to moderate pulmonary hypertension no pericardial effusion Previewed by: Dr. Dior Walsh MD (Electronically Signed) Final Date: 05 September 2023 11:14
[2023-09-05] MEDS ORDERED: ALPRAZolam 0.25 MG TAB PO PRN (11:32)
[2023-09-05] MEDS ORDERED: ASPIRIN 325 MG TAB PO STA (11:32)
[2023-09-05] MEDS ORDERED: ATORVASTATIN 80 MG TAB PO STA (11:32)
[2023-09-05] MEDS ORDERED: ALPRAZolam 0.5 MG TAB PO PRN (11:32)
[2023-09-05] MEDS ORDERED: NITROGLYCERIN SL TABS 0.4 MG TAB SUBLINGUAL PRN (11:32)
[2023-09-05] MEDS ORDERED: IV FLUID CONTINUATION 1,000 ML IV ONE (11:44)
[2023-09-05] MEDS ORDERED: SODIUM CHLORIDE 0.9% 250 ML IV ONE (11:48)
[2023-09-05] MEDS ORDERED: ASPIRIN 81 MG PO ONE (12:00)
[2023-09-05] MEDS ORDERED: ASPIRIN 81 MG ONE (12:01)
[2023-09-05] MEDS ORDERED: LIDOCAINE 2% (PF) 20 MG/ML 5 ML VIAL SQ ONE (12:02)
[2023-09-05] MEDS ORDERED: MIDAZOLAM 2 MG/2 ML VIAL IVP ONE (12:06)
[2023-09-05] MEDS ORDERED: VERAPAMIL SYRINGE (5 MG/10 ML) INTRAARTER ONE (12:07)
[2023-09-05] MEDS ORDERED: IOPAMIDOL-370 100ML BTL INJ ONE (12:14)
[2023-09-05] MEDS ORDERED: RX INFO: IV CONTRAST WAS GIVEN 1 EACH MISC MISCELLANE PRN (12:16)
--- NOTE | 2023-09-05 12:21 | P.PCN ---
Date of Procedure: 09/05/23 Operative Findings: CARDIAC CATHETERIZATION PERFORMING PHYSICIAN: Hussein Arambula MD, RPVI PROCEDURE PERFORMED: 1. Selective right and left coronary angiogram 2. Left heart catheterization 3. Ultrasound-guided access of the right radial artery INDICATION: Acute non-ST elevation myocardial infarction COMPLICATION: None APPROACH: Right radial artery LEVEL OF SEDATION: Moderate with a sedation length of 13 minutes PROCEDURE DESCRIPTION: After obtaining an informed consent, the patient was brought to cardiac grass farm laborer. Local anesthesia was performed using lidocaine subcutaneously. The right radial artery was cannulated using Seldinger technique, the guidewire passed easily, following that we advanced a 5-Dutch sheath dilator assembly, the wire and dilator were removed and sheath was flushed. Following that, 2 mg of verapamil along with 5000 unit heparin were given. Selective right and left coronary angiogram using a 6-Dutch JR4 and JL 3.5 catheters. Following that we did left heart catheterization using the JR4 catheter which across aortic valve The procedure was completed there was no complication. SELECTIVE CORONARY ANGIOGRAM: The right coronary artery: Large caliber vessel and codominant vessel and is angiographically normal Left main: Has mild disease in the ostium. The left circumflex: Large caliber vessel. The LCx in the midportion is a stented and the stent is patent. Before that there is a lesion appeared to be intermediate in the range of 40% The left anterior descending artery: The proximal LAD is a stented. The stent is patent. The mid LAD has interme diate lesion appears to be in the range of 40%. The LAD gives rises into the first diagonal branch which has a long tubular lesion appears to be in the range of 60-70% and the second diagonal branch which is subtotally occluded. The disease appeared to be unchanged compared to before HEMODYNAMICS: The LVEDP was 30 mmHg was no significant gradient across aortic valve CONCLUSION: 1. Patent stent in the proximal LAD. Intermediate lesion involving the mid LAD appears to be the same as before. Diseased first and second diagonal branches appeared to be unchanged compared to before as well 2. Patent stent in the mid left circumflex. Intermediate disease involving the proximal LCx appears to be unchanged compared to before 3. Severely elevated left-sided filling pressure POSTPROCEDURE MANAGEMENT: Medical treatment Consider IV diuretics Monitor the kidney function and electrolytes
[2023-09-05] MEDS ORDERED: SODIUM CHLORIDE 0.9% 1,000 ML IV SCH (12:30)
[2023-09-05 12:33] LABS: Glucose,Whole Blood 323 mg/dL (70-110)
[2023-09-05] MEDS: INSULIN ASPART (NovoLOG) 100 UNIT/ML VIAL SQ SCH ×3 (12:35→20:24)
[2023-09-05] MEDS ORDERED: MAGNESIUM SULFATE-D5W PMX 1 GM in DEXTROSE/WATER 1 100ML.BAG IVPB ONE (13:02)
[2023-09-05] MEDS ORDERED: Potassium Replacement Protocol 1 EACH MISC MISCELLANE PRN (13:02)
[2023-09-05] MEDS ORDERED: Magnesium Replacement Protocol 1 EACH MISC MISCELLANE PRN (13:02)
[2023-09-05] MEDS: POTASSIUM CHLORIDE 10 MEQ in WATER FOR INJECTION 1 100ML.BAG IVPB SCH ×4 (13:10→16:11)
[2023-09-05 16:43] LABS: Glucose,Whole Blood 314 mg/dL (70-110)
[2023-09-05 20:07] LABS: Glucose,Whole Blood 169 mg/dL (70-110)
[2023-09-05] MEDS: ATORVASTATIN 80 MG TAB PO SCH (20:23)
[2023-09-05] MEDS: HEPARIN SODIUM,PORCINE 5,000 UNIT/ML 1 ML VIAL SQ SCH (20:23)
[2023-09-05] MEDS ORDERED: INSULIN DETEMIR (LEVEMIR) 100 UNIT/ML SYR SQ SCH (21:00)
[2023-09-05 21:56] LABS: Magnesium 2.2 mg/dL (1.6-2.3); Potassium 4.2 mmol/L (3.5-5.1)
[2023-09-06] MEDS: MORPHINE SULFATE 4 MG/ML SYRINGE IVP PRN (03:07)
[2023-09-06 05:05] LABS: Basophils % (A) 0 %; Eosinophils % (A) 0 %; HCT 32.5 % (39.0-53.0); HGB 10.9 gm/dL (13.0-17.5); Lymphocytes % (A) 13 %; MCH 33.6 pg (25.0-35.0); MCHC 33.6 g/dL (31.0-37.0); Mean Platelet Volume 8.2; Monocytes # (A) 0.5 k/uL (0-1.0); Monocytes % (A) 6 %; Neutrophils # (A) 6.2 k/uL (1.3-7.7); Neutrophils % (A) 79 %; Platelet Count 190 k/uL (150-450); RBC 3.25 m/uL (4.30-5.90); RDW 12.2 % (11.5-15.5); WBC 7.8 k/uL (3.8-10.6)
[2023-09-06 05:16] LABS: ALT 24 U/L (4-49); AST 53 U/L (17-59); African American GFR (CKD) >90 (>60 ml/min/1.73 sqM); Albumin 2.9 g/dL (3.5-5.0); Alkaline Phosphatase 34 U/L (38-126); Anion Gap 5 mmol/L; Blood Urea Nitrogen 20 mg/dL (9-20); Carbon Dioxide 26 mmol/L (22-30); Chloride 104 mmol/L (98-107); Glucose 165 mg/dL (74-99); Lipase 1265 U/L (23-300); Magnesium 2.1 mg/dL (1.6-2.3); Non-African American GFR(CKD) 88 (>60 ml/min/1.73 sqM); Potassium 4.2 mmol/L (3.5-5.1); Sodium 135 mmol/L (137-145); Total Bilirubin 0.7 mg/dL (0.2-1.3); Total Protein 5.2 g/dL (6.3-8.2)
[2023-09-06 06:56] LABS: Glucose,Whole Blood 259 mg/dL (70-110)
[2023-09-06] MEDS ORDERED: HEPARIN SODIUM,PORCINE (1 ML) 2,500 UNIT in SODIUM CHLORIDE 0.9% 250 ML IRRIGATION PRN (07:00)
[2023-09-06] MEDS: INSULIN DETEMIR (LEVEMIR) 100 UNIT/ML SYR SQ SCH (07:00)
[2023-09-06] MEDS: INSULIN ASPART (NovoLOG) 100 UNIT/ML VIAL SQ SCH (07:00)
[2023-09-06] MEDS ORDERED: HEPARIN SODIUM,PORCINE 10,000 UNIT in SODIUM CHLORIDE 0.9% 1,000 ML IRRIGATION PRN (07:00)
[2023-09-06] MEDS: SODIUM CHLORIDE 0.9% 1,000 ML IV SCH (07:01)
[2023-09-06] MEDS: HEPARIN SODIUM,PORCINE 5,000 UNIT/ML 1 ML VIAL SQ SCH (08:14)
[2023-09-06] MEDS: AMIODARONE 200 MG TAB PO SCH (08:15)
[2023-09-06] MEDS: PANTOPRAZOLE 40 MG/10 ML VIAL IV SCH (08:15)
[2023-09-06] MEDS: THIAMINE 100 MG TAB PO SCH (08:15)
[2023-09-06] MEDS: METOPROLOL SUCCINATE (ER) 25 MG TAB.ER.24H PO SCH (08:15)
[2023-09-06] MEDS ORDERED: METOPROLOL SUCCINATE (ER) 25 MG TAB.ER.24H PO STA (09:26)
--- NOTE | 2023-09-06 09:26 | P.PN ---
Subjective Progress Note Date: 09/06/23 I am seeing this patient in new consultation today 09/05/2023 in the intensive care unit after the patient presented with acute abdominal pain and nausea and vomiting. Patient is a 57-year-old white male with past medical history significant for diabetes mellitus normally managed on insulin pump, alcoholism, coronary artery disease and TN with prior stents, chronic and ongoing tobacco dependence, and anxiety. Patient has had a total of 3 cardiac stents, with his last heart catheterization back in November,, where he underwent another PCI/stent to the circumflex/OM1. Patient unfortunately continues to smoke approximately 1 pack per day. He also drinks approximately 1 pint per day. His last drink was yesterday at a Thanksgiving dinner. Patient states that after the libertarian, he had intractable nausea and vomiting. He was progressively more weak. He had associated medial abdominal pain. He denies any hematemesis, bloody bowel movements, constipation, diarrhea. He states that his blood sugars were running greater than 600 while at home. He was unable to control his blood sugar despite insulin boluses. On arrival to the emergency room last night, the patient was found to be in acute diabetic ketoacidosis and also had findings consistent with acute pancreatitis. Blood glucose on arrival was 457, serum bicarb 19, anion gap 20, acetone positive. Patient was started on the DKA protocol. Insulin is infusing at 8 units per hour. Influenza been transitioned to D5 W0.45% saline with 20 meqs potassium at 150 ML's per hour. Patient's lipase levels were quite elevated at 2224. A follow-up noncontrast CT of the abdomen demonstrated stranding changes around the pancreatic head and neck. No organized fluid collection. There are layering gallstones present. No symptoms of infectious process. LFTs mildly elevated. No jaundice. Patient is currently receiving IV fluids as listed above and nothing by mouth. A GI consult was placed. Patient also noted some midsternal chest pain without radiation. This is been ongoing overnight. Troponins were significantly elevated at 62.4 and is downtrending currently 45.3. ECG done on arrival showed normal sinus rhythm with nonspecific T-wave changes in the anterior leads. Cardiology was contacted, but deferred heart catheterization due to the patient's kidney function. Heparin is infusing per protocol. Baseline APTT 24. BMP from admission shows a sodium 131, potassium 3.9, chloride 92, serum bicarb 19, anion gap 20, BUN 47, creatinine 2.43, glucose 457. CBC unremarkable without any leukocytosis. Patient is currently lying in bed, on room air, in no acute distress. SpO2 is 95%. Vital signs are stable. Blood pressure is normotensive. Heart rhythm appears normal sinus on bedside monitor at a rate of 80 bpm. No tachycardia or tachypnea. He remains afebrile. Abdomen is tender to palpation. No abnormal bruising or distention. He is currently nothing by mouth. Nausea and vomiting has subsided. He will be monitored in the intensive care unit. On today's evaluation of 09/06/2023, I'm seeing the patient for a follow-up. He is doing extremely well for the time being. No nausea. No vomiting. No emesis . His blood sugars under better control while being on Levemir insulin. He is tolerating his diet. No fever. No chills. No chest pain. He underwent a cardiac catheterization yesterday and the patient had no interventions performed. The patient was found to have a patent stent to the proximal LAD, there was some diseased first and second diagonal branches appeared to be unchanged from previous evaluations. He also had a patent stent in the mid circumflex. Intermediate disease in the mid LAD and proximal circumflex vessels. His left ventricle end-diastolic pressures were elevated and his echocardiogram showed an ejection fraction of 40% and the patient had moderate degree of mitral regurgitation. The white cell cause of 7.8 with a hemoglobin of 10.9. Sodium level is at 135, LFTs are stable, lipase level is improving is currently down to 1265. No signs of any delirium tremens. The patient is awake and alert without any agitation or restlessness and confusion or tremors at this point in time. His renal function is also improved and the creatinine is down to 0.9. IV fluids are in the form of normal saline at rate of 75 mL an hour. He is on room air oxygen. Objective - Vital Signs Vital signs: Vital Signs Temp 98 F 09/06/23 08:00 Pulse 88 09/06/23 09:00 Resp 15 09/06/23 09:00 BP 127/83 09/06/23 09:00 Pulse Ox 90 L 09/06/23 09:00 FiO2 Intake & Output 09/05/23 09/06/23 09/06/23 18:59 06:59 18:59 Intake Total 1050 1150 425 Output Total 550 600 0 Balance 500 550 425 Weight 87.8 kg Intake: IV 150 D5-0.45% NaCl with KCl 0 20Meq/l 1,000 ml @ 150 mls/hr IV .Q6H40M JARED Rx# :[id number] Intake, IV Titration 900 900 225 Amount D5-0.45% NaCl with KCl 450 20Meq/l 1,000 ml @ 75 mls /hr IV .[id number] JARED Rx#: [id number] Sodium Chloride 0.9% 1, 0 000 ml @ 130 mls/hr IV . Q7H42M JARED Rx#:[id number] Sodium Chloride 0.9% 1, 450 900 225 000 ml @ 75 mls/hr IV . [id number] JARED Rx#:[id number] Oral 0 250 200 Tube Feeding 0 Output: Urine 550 600 0 Other: Voiding Method Urinal Urinal Urinal - Exam GENERAL EXAM: Alert, 57-year-old white male appearing stated age, comfortable in no apparent distress. HEAD: Normocephalic and atraumatic EYES: Normal reaction of pupils, equal size. NOSE: Clear with pink turbinates. THROAT: No erythema or exudates. NECK: No masses, no JVD. CHEST: No chest wall deformity. LUNGS: Equal air entry with no crackles, wheeze, rhonchi or dullness. On room air. No conversational dyspnea or accessory muscle use.. CVS: S1 and S2 normal with no audible murmur, regular rhythm. No extra heart sounds ABDOMEN: No hepatosplenomegaly, active bowel sounds, no guarding or rigidity. No cody or Perkins Roca sign. Facial grimacing with deep palpation of the medial abdomen SPINE: No scoliosis or deformity SKIN: No rashes. Non-jaundice CENTRAL NERVOUS SYSTEM: No focal deficits, tone is normal in all 4 extremities. EXTREMITIES: There is no peripheral edema, clubbing, or cyanosis. Peripheral pulses are intact. - Labs CBC & Chem 7: 09/06/23 04:28 09/06/23 04:28 Labs: Abnormal Lab Results - Last 24 Hours (Table) 09/05/23 09/05/23 09/05/23 Range/Units 10:18 12:31 16:42 RBC (4.30-5.90) m/uL Hgb (13.0-17.5) gm/dL Hct (39.0-53.0) % Sodium (137-145) mmol/L Glucose (74-99) mg/dL POC Glucose (mg/dL) 323 H 314 H (70-110) mg/dL Calcium (8.4-10.2) mg/dL AST 112 H (17-59) U/L Alkaline Phosphatase 33 L (38-126) U/L Total Protein (6.3-8.2) g/dL Albumin (3.5-5.0) g/dL Lipase (23-300) U/L 09/05/23 09/06/23 09/06/23 Range/Units 20:06 04:28 04:28 RBC 3.25 L (4.30-5.90) m/uL Hgb 10.9 L (13.0-17.5) gm/dL Hct 32.5 L (39.0-53.0) % Sodium 135 L (137-145) mmol/L Glucose 165 H (74-99) mg/dL POC Glucose (mg/dL) 169 H (70-110) mg/dL Calcium 8.0 L (8.4-10.2) mg/dL AST (17-59) U/L Alkaline Phosphatase 34 L (38-126) U/L Total Protein 5.2 L (6.3-8.2) g/dL Albumin 2.9 L (3.5-5.0) g/dL Lipase 1265 H (23-300) U/L 09/06/23 Range/Units 06:55 RBC (4.30-5.90) m/uL Hgb (13.0-17.5) gm/dL Hct (39.0-53.0) % Sodium (137-145) mmol/L Glucose (74-99) mg/dL POC Glucose (mg/dL) 259 H (70-110) mg/dL Calcium (8.4-10.2) mg/dL AST (17-59) U/L Alkaline Phosphatase (38-126) U/L Total Protein (6.3-8.2) g/dL Albumin (3.5-5.0) g/dL Lipase (23-300) U/L Assessment and Plan Assessment: Non-ST elevation TN, post cardiac catheterization and stenting of LAD and circumflex are both patent and there is some intermediate disease for which no intervention has been done. Currently free of any chest pain. Acute diabetic ketoacidosis, recovered Acute pancreatitis without cholangitis, a noncontrast CT of the abdomen d emonstrated stranding changes around the pancreatic head and neck. No organized fluid collection. There are layering gallstones present. Clinically improving and the lipase level is improving History of alcoholism, drinks approximately 1 pint per day. Last drink reportedly yesterday Acute kidney injury, related to dehydration, recovered Coronary artery disease, with previous stents to the proximal and mid LAD and OM1 History of ischemic cardiomyopathy with an ejection fraction of 35-40%. Repeat echocardiogram showed an EF of around 40%, left ventricular end-diastolic pressure is elevated on the cardiac catheterization and the patient has moderate degree of mitral regurgitation Insulin-dependent diabetes mellitus, on insulin pump Chronic ongoing tobacco dependence History of anxiety Plan: Restart Effient And Eliquis Discontinue the Levemir insulin and start the patient is on insulin pump. His pump is functional and is currently at the bedside. This will be initialized today. IV fluids to KVO Lasix 20 mg IV push No signs of any delirium tremens Continue amiodarone May restart the Zestril of his blood pressure tolerates in combination with metoprolol 25 mg by mouth daily Restart Lipitor Increase mobility Transferred also the intensive care unit at the later stage .
[2023-09-06] MEDS ORDERED: ACETAMINOPHEN TAB 325 MG TAB PO PRN (09:29)
--- NOTE | 2023-09-06 09:31 | P.PN ---
Subjective Progress Note Date: 09/06/23 The patient is a 57-year-old male with extensive cardiac history who presented to the hospital with nausea, vomiting, and abdominal discomfort which had been occurring for approximately 2-3 days.. He was found to be in DKA and acute renal failure. EKG on arrival showed no significant ST changes. Troponins elevated at 62, 45, 39, and 33. Cardiology was notified for a non-ST elevated myocardial infarction, however coronary angiogram was delayed due to initial creatinine being 2.5. Patient underwent coronary angiogram yesterday with primary kier boiler Dr. Arambula. There was no progression in disease compared to his previous heart catheterization back in November. Patient was interviewed and examined resting comfortably in bed. He denies any current chest pain. Only mild abdominal discomfort, but overall has improved. Extensive conversation regarding angiogram and cardiomyopathy. He was advised complete alcohol cessation. GENERAL: Well-appearing, well-nourished and in no acute distress. NECK: Supple without JVD or thyromegaly. LUNGS: Breath sounds clear to auscultation bilaterally. Respiration equal and unlabored. No wheezes, rales or rhonchi. HEART: Regular rate and rhythm without murmurs, rubs or gallops. S1 and S2 heard. EXTREMITIES: Normal range of motion, no edema. No clubbing or cyanosis. Peripheral pulses intact and strong. Right radial site is healed TELEMETRY: Sinus rhythm overnight with PVCs. Heart rates in the 80s LABS: WBC 7.8, hemoglobin 10.9, hematocrit 32.5, platelet 190, sodium 135, potassium 4.2, BUN 20, creatinine 0.96, AST 53, ALT 24, lipase 1265 IMPRESSION: Non-ST elevated myocardial infarction History of multivessel coronary artery disease Dilated cardiomyopathy, EF 40% Congestive heart failure, elevated BNP Diabetic ketoacidosis Acute renal failure with baseline creatinine at 1.5 Pancreatitis Current smoker PLAN: Increase Toprol 50 mg daily Continue Eliquis and Effient Further recommendations based on clinical course I am dictating on behalf of Dr Cirilo Sanchez's history/physical and assessment/plan. Objective - Vital Signs Vital signs: Vital Signs Temp 98 F 09/06/23 08:00 Pulse 88 09/06/23 09:00 Resp 15 09/06/23 09:00 BP 127/83 09/06/23 09:00 Pulse Ox 90 L 09/06/23 09:00 FiO2 Intake & Output 09/05/23 09/06/23 09/06/23 18:59 06:59 18:59 Intake Total 1050 1150 425 Output Total 550 600 0 Balance 500 550 425 Weight 87.8 kg Intake: IV 150 D5-0.45% NaCl with KCl 0 20Meq/l 1,000 ml @ 150 mls/hr IV .Q6H40M [facility] Rx# :[id number] Intake, IV Titration 900 900 225 Amount D5-0.45% NaCl with KCl 450 20Meq/l 1,000 ml @ 75 mls /hr IV .[id number] JARED Rx#: [id number] Sodium Chloride 0.9% 1, 0 000 ml @ 130 mls/hr IV . Q7H42M JARED Rx#:[id number] Sodium Chloride 0.9% 1, 450 900 225 000 ml @ 75 mls/hr IV . [id number] JARED Rx#:[id number] Oral 0 250 200 Tube Feeding 0 Output: Urine 550 600 0 Other: Voiding Method Urinal Urinal Urinal - Labs CBC & Chem 7: 09/06/23 04:28 09/06/23 04:28 Labs: Abnormal Lab Results - Last 24 Hours (Table) 09/05/23 09/05/23 09/05/23 Range/Units 10:18 12:31 16:42 RBC (4.30-5.90) m/uL Hgb (13.0-17.5) gm/dL Hct (39.0-53.0) % Sodium (137-145) mmol/L Glucose (74-99) mg/dL POC Glucose (mg/dL) 323 H 314 H (70-110) mg/dL Calcium (8.4-10.2) mg/dL AST 112 H (17-59) U/L Alkaline Phosphatase 33 L (38-126) U/L Total Protein (6.3-8.2) g/dL Albumin (3.5-5.0) g/dL Lipase (23-300) U/L 09/05/23 09/06/23 09/06/23 Range/Units 20:06 04:28 04:28 RBC 3.25 L (4.30-5.90) m/uL Hgb 10.9 L (13.0-17.5) gm/dL Hct 32.5 L (39.0-53.0) % Sodium 135 L (137-145) mmol/L Glucose 165 H (74-99) mg/dL POC Glucose (mg/dL) 169 H (70-110) mg/dL Calcium 8.0 L (8.4-10.2) mg/dL AST (17-59) U/L Alkaline Phosphatase 34 L (38-126) U/L Total Protein 5.2 L (6.3-8.2) g/dL Albumin 2.9 L (3.5-5.0) g/dL Lipase 1265 H (23-300) U/L 09/06/23 Range/Units 06:55 RBC (4.30-5.90) m/uL Hgb (13.0-17.5) gm/dL Hct (39.0-53.0) % Sodium (137-145) mmol/L Glucose (74-99) mg/dL POC Glucose (mg/dL) 259 H (70-110) mg/dL Calcium (8.4-10.2) mg/dL AST (17-59) U/L Alkaline Phosphatase (38-126) U/L Total Protein (6.3-8.2) g/dL Albumin (3.5-5.0) g/dL Lipase (23-300) U/L
[2023-09-06] MEDS ORDERED: FUROSEMIDE 10 MG/ML 2 ML VIAL IV ONE (09:45)
--- NOTE | 2023-09-06 10:00 | CDI ---
Documentation Clarification Form Date: 09/06/2023 09:36:41 AM From: Kitty Taveras RN CCDS Phone: [phone] Admit Date: 09/04/2023 09:36:00 PM Patient Name: Sharif Quinn Visit Number: [id number] Discharge Date: ATTENTION: The Clinical Documentation Specialists (CDI) and [facility] Coding Staff appreciate your assistance in clarifying documentation. Please respond to the clarification below the line at the bottom and electronically sign. The CDI & [facility] Coding staff will review the response and follow-up if needed. Please note: Queries are made part of the Legal Health Record. If you have any questions, please contact the author of this message via ITS. Dr. Cirilo Sanchez Your patient has the documented diagnosis of unspecified CHF 09/05, Cardiology consult. Additional information regarding the type, acuity of CHF is requested. History/Risk Factors: 57-year-old male presents to the ED for repeated vomiting, epigastric abdominal pain for two days. Medical History. CKD 3, COPD, DM, CAD and CHF. 09/05, Cardiology consult Clinical Indicators: Home medications: Spironolactone, Toprol XL VS/Pulse OX, 09/04: BP 110/71, HR 75, Temp 97.9 F, RR 16, SpO2 99% room air. BNP, 09/04: 14826 Echocardiogram Results 09/04: Normal LV size with wall motion abnormalities suggestive ischemic cardiomyopathy and ef 40% right ventricle is enlarged to moderate extent. Moderate mitral regurgitation. Mild to moderate tricuspid regurgitation with mild to moderate pulmonary hypertension. Chest X Ray, 09/04: No acute cardiopulmonary disease process Treatment: Toprol XL, Lasix IV x 1 In your professional opinion, can you please clarify the [acuity and type] of CHF if known? [ ] Acute on Chronic Systolic Heart Failure (reduced EF) [ ] Other, please specify [ xx] Unable to determine (Template Last Revised: November 2020) UNABLE TO DETERMINE MTDD
[2023-09-06 10:11] VITALS: BMI 23.6
[2023-09-06] MEDS: APIXABAN 2.5 MG TABLET PO SCH ×2 (10:26→20:05)
[2023-09-06] MEDS: PRASUGREL 10 MG TAB PO SCH (10:26)
--- NOTE | 2023-09-06 14:44 | P.PN ---
Subjective Progress Note Date: 09/06/23 Principal diagnosis: Pancreatitis This is a pleasant 57-year-old male with history of insulin dependent diabetes mellitus, alcohol abuse, myocardial infarction, coronary artery disease status post stenting, and tobacco dependence. He presented to the emergency department with complaints of intractable nausea and vomiting. He states emesis was nonbloody was associated with epigastric and right upper quadrant abdominal pain. He denies similar symptoms in the past. Denies any history of peptic ulcer disease. He states he has been significantly heavy drinker in the past a nd is still drinking about a pint at least 4 days a week. Denies any previous history of pancreatitis. He was admitted to the ICU for diabetic ketoacidosis and acute pancreatitis. Admitting labs was noted to have elevated lipase at 2023 . He had a CT of the abdomen and pelvis which reported. Pancreatic inflammation changes correlate with serum lipase for pancreatitis. No additional evidence for acute abdominal process. Gallbladder reports layering gallstones present. The patient denies any new medications, no recent antibiotics, again no previous history of pancreatitis, and no family history. Labs WBC 14.4 hemoglobin 11.3 hematocrit 33 platelet count 230,000 and are 0.9 sodium 136 potassium 3.4 BUN 43 creatinine 1.5 total bilirubin 0.6 AST 174 AST 35 alkaline phosphatase 38 troponin 33.2 amylase 371 lipase 2763 09/06/2023 Patient seen and examined today as a follow-up. He remains in the ICU but has been downgraded to the stepdown unit. He states abdominal pain significantly improved. He's been tolerating clear liquid diet. No nausea or vomiting. He has been afebrile. Yesterday he underwent cardiac catheterization with findings of patent stent in the proximal LAD. Intermediate lesion involving the mid LAD appears to be same as before. Decreased first and second diagonal branches appear to be unchanged. Patent stent in the mid left circumflex. Intermediate disease involving proximal LCx appears to be unchanged compared to before. Severely elevated left-sided filling pressure. Today's repeat lipase 1265 down from 2763 yesterday. Objective - Vital Signs Vital signs: Vital Signs Temp 98 F 09/06/23 08:00 Pulse 81 09/06/23 10:00 Resp 16 09/06/23 10:00 BP 132/89 09/06/23 10:00 Pulse Ox 93 L 09/06/23 10:00 FiO2 Intake & Output 09/05/23 09/06/23 09/06/23 18:59 06:59 18:59 Intake Total 1050 1150 425 Output Total 550 600 0 Balance 500 550 425 Weight 87.8 kg 87.8 kg Intake: IV 150 D5-0.45% NaCl with KCl 0 20Meq/l 1,000 ml @ 150 mls/hr IV .Q6H40M JARED Rx# :[id number] Intake, IV Titration 900 900 225 Amount D5-0.45% NaCl with KCl 450 20Meq/l 1,000 ml @ 75 mls /hr IV .[id number] JARED Rx#: [id number] Sodium Chloride 0.9% 1, 0 000 ml @ 130 mls/hr IV . Q7H42M JARED Rx#:[id number] Sodium Chloride 0.9% 1, 450 900 225 000 ml @ 75 mls/hr IV . [id number] JARED Rx#:[id number] Oral 0 250 200 Tube Feeding 0 Output: Urine 550 600 0 Other: Voiding Method Urinal Urinal Urinal - Exam General appearance: The patient is alert, oriented, appears in no acute distress. HET: Head is normocephalic and atraumatic. Conjunctiva pink. Sclera anicteric. Neck: Supple without lymphadenopathy. Abdomen: Soft, nontender, nondistended with bowel sounds. No guarding or rigidity. Extremities: Normal skin color and turgor. No pedal edema Skin: No rashes, no jaundice Neurological: No focal deficits. Alert and oriented. - Labs CBC & Chem 7: 09/06/23 04:28 09/06/23 04:28 Labs: Abnormal Lab Results - Last 24 Hours (Table) 09/05/23 09/05/23 09/05/23 Range/Units 12:31 16:42 20:06 RBC (4.30-5.90) m/uL Hgb (13.0-17.5) gm/dL Hct (39.0-53.0) % Sodium (137-145) mmol/L Glucose (74-99) mg/dL POC Glucose (mg/dL) 323 H 314 H 169 H (70-110) mg/dL Calcium (8.4-10.2) mg/dL Alkaline Phosphatase (38-126) U/L Total Protein (6.3-8.2) g/dL Albumin (3.5-5.0) g/dL Lipase (23-300) U/L 09/06/23 09/06/23 09/06/23 Range/Units 04:28 04:28 06:55 RBC 3.25 L (4.30-5.90) m/uL Hgb 10.9 L (13.0-17.5) gm/dL Hct 32.5 L (39.0-53.0) % Sodium 135 L (137-145) mmol/L Glucose 165 H (74-99) mg/dL POC Glucose (mg/dL) 259 H (70-110) mg/dL Calcium 8.0 L (8.4-10.2) mg/dL Alkaline Phosphatase 34 L (38-126) U/L Total Protein 5.2 L (6.3-8.2) g/dL Albumin 2.9 L (3.5-5.0) g/dL Lipase 1265 H (23-300) U/L Assessment and Plan (1) Acute pancreatitis Narrative/Plan: 57-year-old male came in with nausea and vomiting for last 2 days duration in diabetic ketoacidosis. He was noted to have elevated lipase, CT abdomen and pelvis showing acute uncomplicated pancreatitis. Patient admitted to the ICU. Complains of right upper quadrant and epigastric pain with nausea, vomiting has resolved. CT also states showed layering gallstones in the gallbladder, gallbladder ultrasound ordered and reviewed showing cholelithiasis with sludge, no cholecystitis. Patient's first with pancreatitis, he does have a significant history and current alcohol use. He drinks a pint 4 days a week. Likely etiology for acute pancreatitis is alcohol induced, less likely but need to consider gallstone pancreatitis however total bilirubin and LFTs currently normal, as well as possibly medication induced however patient denies any new medications. Will repeat LFTs. For now continue to treat symptomatically with aggressive IV hydration, pain medications, and patient may have ice chips. 09/06/2023: Abdominal pain improving. Lipase trending down. Patient tolerating clear liquids and advancing diet. Again likely alcohol induced pancreatitis. Discuss with patient again recommendation for alcohol abstinence. Current Visit: Yes Status: Acute Code(s): K85.90 - ACUTE PANCREATITIS WITHOUT NECROSIS OR INFECTION, UNSP SNOMED Code(s): 232455711 (2) Coronary artery disease Current Visit: Yes Status: Acute Code(s): I25.10 - ATHSCL HEART DISEASE OF [place] CORONARY ARTERY W/O ANG PCTRS SNOMED Code(s): 51111531 (3) LOLLY (acute kidney injury) Current Visit: Yes Status: Acute Code(s): N17.9 - ACUTE KIDNEY FAILURE, UNSPECIFIED SNOMED Code(s): 84339221 (4) DKA (diabetic ketoacidosis) Current Visit: Yes Status: Acute Code(s): E11.10 - TYPE 2 DIABETES MELLITUS WITH KETOACIDOSIS WITHOUT COMA SNOMED Code(s): 112598618 (5) Nausea and vomiting Current Visit: Yes Status: Acute Code(s): R11.2 - NAUSEA WITH VOMITING, UNSPECIFIED SNOMED Code(s): 13356347 (6) Elevated troponin Current Visit: No Status: Acute Code(s): R77.8 - OTHER SPECIFIED ABNORMALITIES OF PLASMA PROTEINS SNOMED Code(s): 313668282 Plan: 1. Continue symptomatic and supportive care 2. May have full liquid diet, if tolerated advance to consistent carbohydrate diet 3. Pain medication as needed 4. Antiemetics as needed 5. Protonix 40 mg daily GI prophylaxis 6. Gallbladder ultrasound ordered and reviewed 7. Discussed with patient importance of alcohol abstinence, smoking cessation 8. Encourage ambulation Thank you for this consultation, we will continue to follow. Dr. Alyson Jensen I agree with the dictator's note, documented as a scribe by Susan Pugh.
[2023-09-06] MEDS: ONDANSETRON 4 MG/2 ML VIAL IVP PRN (17:13)
[2023-09-06] MEDS: ATORVASTATIN 80 MG TAB PO SCH (20:05)
--- NOTE | 2023-09-06 22:10 | P.PN ---
Subjective this is a pleasant 57 years old male with past medical history of multipe medical problems including history of coronary artery disease status post 2 stents and ischemic cardiomyopathy with ejection fraction of 35-40%, alcohol use disorder. Diabetes mellitus, hypertension, hyperlipidemia and atrial fibrillation, And chronic kidney disease stage III. who came last night because of repeated vomiting , non bloody , associated with epigastric abdominal pain of two days duration ,pain is about 8/10 on presentation , non specific in character . associated with mild chest pain , central non radiating about 2-3 /10, no dyspnea , no coughing had no diarrhea or bowel movement yesterday also denies any urinary complaint, he has mild headache but no dizziness, weakness or numbness he smokes about 1 pack per day and he was counseled to quit and he agrees but he denies nicotine patch , he drinks about one pint each day of liqour, no illicit drug Patient is also diabetic and he was on insulin pump at home which is a stalk now, has history of paroxysmal atrial fibrillation on ELiquis at home Vitals are stable Labs showed leukocytosis of 14,000, hemoglobin 11, creatinine was 2.4 came back to 1.5. Troponin is elevated 39 and 33 anion gap was elevated on admission as 20, currently closed down to 9 Lipase Is elevated 2763 Drug screen is positive for opiates and benzodiazepines CT of the abdomen and pelvis showing fat stranding in the peripancreatic area suspicious for acute pancreatitis Chest x-ray shows COPD changes which are chronic with no acute changes 09/06/1943 Patient is very relaxed arciform to full, no chest pain, abdominal pain is very minimal about 2/10, he tolerates diet well about 50% No signs of alcohol withdrawal Cardiac cath showing patent stents, diet will be advanced. His heparin drip and started on Eliquis and if ENT Labs and vitals stable Patient could be downgraded Objective - Vital Signs Vital signs: Vital Signs Temp 98 F 09/06/23 12:00 Pulse 85 09/06/23 12:00 Resp 20 09/06/23 12:00 BP 137/85 09/06/23 12:00 Pulse Ox 93 L 09/06/23 12:00 FiO2 Intake & Output 09/05/23 09/06/23 09/06/23 18:59 06:59 18:59 Intake Total 1050 1150 425 Output Total 550 600 500 Balance 500 550 -75 Weight 87.8 kg 87.8 kg Intake: IV 150 D5-0.45% NaCl with KCl 0 20Meq/l 1,000 ml @ 150 mls/hr IV .[id number] [facility] Rx# :[id number] Intake, IV Titration 900 900 225 Amount D5-0.45% NaCl with KCl 450 20Meq/l 1,000 ml @ 75 mls /hr IV .[id number] [facility] Rx#: [id number] Sodium Chloride 0.9% 1, 0 000 ml @ 130 mls/hr IV . [id number] [facility] Rx#:[id number] Sodium Chloride 0.9% 1, 450 900 225 000 ml @ 75 mls/hr IV . [id number] [facility] Rx#:[id number] Oral 0 250 200 Tube Feeding 0 Output: Urine 550 600 500 Other: Voiding Method Urinal Urinal Urinal # Voids 1 - Exam GENERAL: The patient is alert and oriented x3, not in any acute distress. Well developed, well nourished. HEENT: Pupils are round and equally reacting to light. EOMI. No scleral icterus. No conjunctival pallor. Normocephalic, atraumatic. No pharyngeal erythema. No thyromegaly. CARDIOVASCULAR: S1 and S2 present. No murmurs, rubs, or gallops. PULMONARY: Chest is clear to auscultation, no wheezing , no crackles. ABDOMEN: Soft, nontender, nondistended, normoactive bowel sounds. No palpable organomegaly. MUSCULOSKELETAL: No joint swelling or deformity. EXTREMITIES: No cyanosis, clubbing, or pedal edema. NEUROLOGICAL: Gross neurological examination did not reveal any focal deficits. SKIN: No rashes. no petechiae. - Labs CBC & Chem 7: 09/06/23 04:28 09/06/23 04:28 Labs: Abnormal Lab Results - Last 24 Hours (Table) 09/05/23 09/05/23 09/06/23 Range/Units 16:42 20:06 04:28 RBC (4.30-5.90) m/uL Hgb (13.0-17.5) gm/dL Hct (39.0-53.0) % Sodium 135 L (137-145) mmol/L Glucose 165 H (74-99) mg/dL POC Glucose (mg/dL) 314 H 169 H (70-110) mg/dL Calcium 8.0 L (8.4-10.2) mg/dL Alkaline Phosphatase 34 L (38-126) U/L Total Protein 5.2 L (6.3-8.2) g/dL Albumin 2.9 L (3.5-5.0) g/dL Lipase 1265 H (23-300) U/L 09/06/23 09/06/23 Range/Units 04:28 06:55 RBC 3.25 L (4.30-5.90) m/uL Hgb 10.9 L (13.0-17.5) gm/dL Hct 32.5 L (39.0-53.0) % Sodium (137-145) mmol/L Glucose (74-99) mg/dL POC Glucose (mg/dL) 259 H (70-110) mg/dL Calcium (8.4-10.2) mg/dL Alkaline Phosphatase (38-126) U/L Total Protein (6.3-8.2) g/dL Albumin (3.5-5.0) g/dL Lipase (23-300) U/L Assessment and Plan Assessment: Thereafter diabetic ketoacidosis, and then Closed Chest pain with significantly elevated troponin suspicious for non-STEMI Acute pancreatitis, alcoholic Alcohol use disorder Paroxysmal atrial fibrillation on a blood thinner at home History of coronary artery disease status post stent 2 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 Nicotine dependence Plan: Continue with Eliquis On insulin Continue with thiamine Protonix Advance diet as tolerated Pulmonary and cardiology as well as GI consult Labs and medication were reviewed.. Continue same treatment. Continue with symptomatic treatment. Resume home medication. Monitor labs and vitals. DVT and GI prophylaxis. Further recommendations as per clinical course of the patie nt DVT prophylaxis: Eliquis GI Prophylaxis: Ppi Prognosis is guarded
--- NOTE | 2023-09-07 08:23 | P.PN ---
Subjective Progress Note Date: 09/07/23 I am seeing this patient in new consultation today 09/05/2023 in the intensive care unit after the patient presented with acute abdominal pain and nausea and vomiting. Patient is a 57-year-old white male with past medical history significant for diabetes mellitus normally managed on insulin pump, alcoholism, coronary artery disease and OK with prior stents, chronic and ongoing tobacco dependence, and anxiety. Patient has had a total of 3 cardiac stents, with his last heart catheterization back in November,, where he underwent another PCI/stent to the circumflex/OM1. Patient unfortunately continues to smoke approximately 1 pack per day. He also drinks approximately 1 pint per day. His last drink was yesterday at a Thanksgiving dinner. Patient states that after the democrat, he had intractable nausea and vomiting. He was progressively more weak. He had associated medial abdominal pain. He denies any hematemesis, bloody bowel movements, constipation, diarrhea. He states that his blood sugars were running greater than 600 while at home. He was unable to control his blood sugar despite insulin boluses. On arrival to the emergency room last night, the patient was found to be in acute diabetic ketoacidosis and also had findings consistent with acute pancreatitis. Blood glucose on arrival was 457, serum bicarb 19, anion gap 20, acetone positive. Patient was started on the DKA protocol. Insulin is infusing at 8 units per hour. Influenza been transitioned to D5 W0.45% saline with 20 meqs potassium at 150 ML's per hour. Patient's lipase levels were quite elevated at 2224. A follow-up noncontrast CT of the abdomen demonstrated stranding changes around the pancreatic head and neck. No organized fluid collection. There are layering gallstones present. No symptoms of infectious process. LFTs mildly elevated. No jaundice. Patient is currently receiving IV fluids as listed above and nothing by mouth. A GI consult was placed. Patient also noted some midsternal chest pain without radiation. This is been ongoing overnight. Troponins were significantly elevated at 62.4 and is downtrending currently 45.3. ECG done on arrival showed normal sinus rhythm with nonspecific T-wave changes in the anterior leads. Cardiology was contacted, but deferred heart catheterization due to the patient's kidney function. Heparin is infusing per protocol. Baseline APTT 24. BMP from admission shows a sodium 131, potassium 3.9, chloride 92, serum bicarb 19, anion gap 20, BUN 47, creatinine 2.43, glucose 457. CBC unremarkable without any leukocytosis. Patient is currently lying in bed, on room air, in no acute distress. SpO2 is 95%. Vital signs are stable. Blood pressure is normotensive. Heart rhythm appears normal sinus on bedside monitor at a rate of 80 bpm. No tachycardia or tachypnea. He remains afebrile. Abdomen is tender to palpation. No abnormal bruising or distention. He is currently nothing by mouth. Nausea and vomiting has subsided. He will be monitored in the intensive care unit. On today's evaluation of 09/06/2023, I'm seeing the patient for a follow-up. He is doing extremely well for the time being. No nausea. No vomiting. No emesis . His blood sugars under better control while being on Levemir insulin. He is tolerating his diet. No fever. No chills. No chest pain. He underwent a cardiac catheterization yesterday and the patient had no interventions performed. The patient was found to have a patent stent to the proximal LAD, there was some diseased first and second diagonal branches appeared to be unchanged from previous evaluations. He also had a patent stent in the mid circumflex. Intermediate disease in the mid LAD and proximal circumflex vessels. His left ventricle end-diastolic pressures were elevated and his echocardiogram showed an ejection fraction of 40% and the patient had moderate degree of mitral regurgitation. The white cell cause of 7.8 with a hemoglobin of 10.9. Sodium level is at 135, LFTs are stable, lipase level is improving is currently down to 1265. No signs of any delirium tremens. The patient is awake and alert without any agitation or restlessness and confusion or tremors at this point in time. His renal function is also improved and the creatinine is down to 0.9. IV fluids are in the form of normal saline at rate of 75 mL an hour. He is on room air oxygen. On 09/07/2023, the patient is awake and alert and sitting up on a chair. He has no specific complaints. No nausea or vomiting. His tolerating diet. His back on his insulin pump in his blood sugars under adequate control. No chest pain. No nausea or vomiting. No abdominal pain. No new labs are available from today. His cardiac rhythm is sinus. No altered mentation. He is on room air oxygen. The patient is ambulating. Objective - Vital Signs Vital signs: Vital Signs Temp 98 F 09/07/23 01:00 Pulse 86 09/07/23 04:00 Resp 19 09/07/23 04:00 BP 136/90 09/07/23 04:00 Pulse Ox 90 L 09/07/23 04:00 FiO2 Intake & Output 09/06/23 09/07/23 09/07/23 18:59 06:59 18:59 Intake Total 425 Output Total 500 Balance -75 Weight 87.8 kg 94.3 kg Intake: Intake, IV Titration 225 Amount Sodium Chloride 0.9% 1, 225 000 ml @ 75 mls/hr IV . [id number] [facility] Rx#:[id number] Oral 200 Output: Urine 500 Other: Voiding Method Urinal Urinal # Voids 1 1 # Bowel Movements 1 - Exam GENERAL EXAM: Alert, 57-year-old white male appearing stated age, comfortable in no apparent distress. HEAD: Normocephalic and atraumatic EYES: Normal reaction of pupils, equal size. NOSE: Clear with pink turbinates. THROAT: No erythema or exudates. NECK: No masses, no JVD. CHEST: No chest wall deformity. LUNGS: Equal air entry with no crackles, wheeze, rhonchi or dullness. On room air. No conversational dyspnea or accessory muscle use.. CVS: S1 and S2 normal with no audible murmur, regular rhythm. No extra heart sounds ABDOMEN: No hepatosplenomegaly, active bowel sounds, no guarding or rigidity. No cody or Perkins Roca sign. Facial grimacing with deep palpation of the medial abdomen SPINE: No scoliosis or deformity SKIN: No rashes. Non-jaundice CENTRAL NERVOUS SYSTEM: No focal deficits, tone is normal in all 4 extremities. EXTREMITIES: There is no peripheral edema, clubbing, or cyanosis. Peripheral pulses are intact. - Labs CBC & Chem 7: 09/06/23 04:28 09/06/23 04:28 Assessment and Plan Assessment: Non-ST elevation OK, post cardiac catheterization and stenting of LAD and circumflex are both patent and there is some intermediate disease for which no intervention has been done. Currently free of any chest pain. Acute diabetic ketoacidosis, recovered, and the patient is currently on insulin pump Acute pancreatitis without cholangitis, a noncontrast CT of the abdomen demonstrated stranding changes around the pancreatic head and neck. No organized fluid collection. There are layering gallstones present. Clinically improving and the lipase level is improving, and the patient is currently free of any abdominal pain. History of alcoholism, drinks approximately 1 pint per day. No signs of any delirium tremens Acute kidney injury, related to dehydration, recovered Coronary artery disease, with previous stents to the proximal and mid LAD and OM1 History of ischemic cardiomyopathy with an ejection fraction of 35-40%. Repeat echocardiogram showed an EF of around 40%, left ventricular end-diastolic pressure is elevated on the cardiac catheterization and the patient has moderate degree of mitral regurgitation Insulin-dependent diabetes mellitus, on insulin pump Chronic ongoing tobacco dependence History of anxiety Plan: Continue Effient And Eliquis Continue metoprolol 50 mg by mouth daily and lisinopril Insulin pump Statins Continue amiodarone Increase mobility Transferred also the intensive care unit at the later stage , may possible discharge home today. .
[2023-09-07] MEDS ORDERED: METOPROLOL SUCCINATE (ER) 50 MG TAB.ER.24H PO SCH (09:00)
[2023-09-07] MEDS: PANTOPRAZOLE 40 MG/10 ML VIAL IV SCH (09:32)
[2023-09-07] MEDS: APIXABAN 2.5 MG TABLET PO SCH (09:34)
[2023-09-07] MEDS: AMIODARONE 200 MG TAB PO SCH (09:35)
[2023-09-07] MEDS: THIAMINE 100 MG TAB PO SCH (09:35)
--- NOTE | 2023-09-07 09:35 | P.PN ---
Subjective Progress Note Date: 09/07/23 Principal diagnosis: Pancreatitis This is a pleasant 57-year-old male with history of insulin dependent diabetes mellitus, alcohol abuse, myocardial infarction, coronary artery disease status post stenting, and tobacco dependence. He presented to the emergency department with complaints of intractable nausea and vomiting. He states emesis was nonbloody was associated with epigastric and right upper quadrant abdominal pain. He denies similar symptoms in the past. Denies any history of peptic ulcer disease. He states he has been significantly heavy drinker in the past a nd is still drinking about a pint at least 4 days a week. Denies any previous history of pancreatitis. He was admitted to the ICU for diabetic ketoacidosis and acute pancreatitis. Admitting labs was noted to have elevated lipase at 2023 . He had a CT of the abdomen and pelvis which reported. Pancreatic inflammation changes correlate with serum lipase for pancreatitis. No additional evidence for acute abdominal process. Gallbladder reports layering gallstones present. The patient denies any new medications, no recent antibiotics, again no previous history of pancreatitis, and no family history. Labs WBC 14.4 hemoglobin 11.3 hematocrit 33 platelet count 230,000 and are 0.9 sodium 136 potassium 3.4 BUN 43 creatinine 1.5 total bilirubin 0.6 AST 174 AST 35 alkaline phosphatase 38 troponin 33.2 amylase 371 lipase 2763 09/06/2023 Patient seen and examined today as a follow-up. He remains in the ICU but has been downgraded to the stepdown unit. He states abdominal pain significantly improved. He's been tolerating clear liquid diet. No nausea or vomiting. He has been afebrile. Yesterday he underwent cardiac catheterization with findings of patent stent in the proximal LAD. Intermediate lesion involving the mid LAD appears to be same as before. Decreased first and second diagonal branches appear to be unchanged. Patent stent in the mid left circumflex. Intermediate disease involving proximal LCx appears to be unchanged compared to before. Severely elevated left-sided filling pressure. Today's repeat lipase 1265 down from 2763 yesterday. 11/07/2022 Patient seen and examined at the follow-up for acute uncomplicated pancreatitis. Patient started consistent carbohydrate diet yesterday and is tolerating well. Abdominal pain much improved, he denies any nausea or vomiting. He's had 2 bowel movements this hospitalization. Denies any chest pain shortness of breath fevers or chills. No current labs today. Objective - Vital Signs Vital signs: Vital Signs Temp 98 F 09/07/23 01:00 Pulse 86 09/07/23 04:00 Resp 19 09/07/23 04:00 BP 136/90 09/07/23 04:00 Pulse Ox 90 L 09/07/23 04:00 FiO2 Intake & Output 09/06/23 09/07/23 09/07/23 18:59 06:59 18:59 Intake Total 425 Output Total 500 Balance -75 Weight 87.8 kg 94.3 kg Intake: Intake, IV Titration 225 Amount Sodium Chloride 0.9% 1, 225 000 ml @ 75 mls/hr IV . [id number] [facility] Rx#:[id number] Oral 200 Output: Urine 500 Other: Voiding Method Urinal Urinal # Voids 1 1 # Bowel Movements 1 - Exam General appearance: The patient is alert, oriented, appears in no acute distress. HET: Head is normocephalic and atraumatic. Conjunctiva pink. Sclera anicteric. Neck: Supple without lymphadenopathy. Abdomen: Soft, nontender, nondistended with bowel sounds. No guarding or rigidity. Extremities: Normal skin color and turgor. No pedal edema Skin: No rashes, no jaundice Neurological: No focal deficits. Alert and oriented. - Labs CBC & Chem 7: 09/06/23 04:28 09/06/23 04:28 Assessment and Plan (1) Acute pancreatitis Narrative/Plan: 57-year-old male came in with nausea and vomiting for last 2 days duration in diabetic ketoacidosis. He was noted to have elevated lipase, CT abdomen and pelvis showing acute uncomplicated pancreatitis. Patient admitted to the ICU. Complains of right upper quadrant and epigastric pain with nausea, vomiting has resolved. CT also states showed layering gallstones in the gallbladder, gallbladder ultrasound ordered and reviewed showing cholelithiasis with sludge, no cholecystitis. Patient's first with pancreatitis, he does have a significant history and current alcohol use. He drinks a pint 4 days a week. Likely etiology for acute pancreatitis is alcohol induced, less likely but need to consider gallstone pancreatitis however total bilirubin and LFTs currently normal, as well as possibly medication induced however patient denies any new medications. Will repeat LFTs. For now continue to treat symptomatically with aggressive IV hydration, pain medications, and patient may have ice chips. 09/06/2023: Abdominal pain improving. Lipase trending down. Patient tolerating clear liquids and advancing diet. Again likely alcohol induced pancreatitis. Discuss with patient again recommendation for alcohol abstinence. Current Visit: Yes Status: Acute Code(s): K85.90 - ACUTE PANCREATITIS WITHOUT NECROSIS OR INFECTION, UNSP SNOMED Code(s): 780675661 (2) Coronary artery disease Current Visit: Yes Status: Acute Code(s): I25.10 - ATHSCL HEART DISEASE OF [place] CORONARY ARTERY W/O ANG PCTRS SNOMED Code(s): 36394057 (3) LOLLY (acute kidney injury) Current Visit: Yes Status: Acute Code(s): N17.9 - ACUTE KIDNEY FAILURE, UNSPECIFIED SNOMED Code(s): 94430580 (4) DKA (diabetic ketoacidosis) Current Visit: Yes Status: Acute Code(s): E11.10 - TYPE 2 DIABETES MELLITUS WITH KETOACIDOSIS WITHOUT COMA SNOMED Code(s): 509674157 (5) Nausea and vomiting Current Visit: Yes Status: Acute Code(s): R11.2 - NAUSEA WITH VOMITING, UNSPECIFIED SNOMED Code(s): 29426587 (6) Elevated troponin Current Visit: No Status: Acute Code(s): R77.8 - OTHER SPECIFIED ABNORMALITIES OF PLASMA PROTEINS SNOMED Code(s): 965970486 Plan: 1. Continue symptomatic and supportive care 2. Continue diet as ordered. Discussed with patient a small meals as tolerated. 3. Pain medication as needed 4. Antiemetics as needed 5. Protonix 40 mg daily GI prophylaxis 6. Gallbladder ultrasound ordered and reviewed 7. Discussed with patient importance of alcohol abstinence, smoking cessation 8. Encourage ambulation Thank you for this consultation, Sharif is cleared from gastroenterology for discharge. Follow-up in 2-[address] Alyson Jensen I agree with the dictator's note, documented as a scribe by Susan Pugh.
--- NOTE | 2023-09-07 09:48 | P.PN ---
Subjective Progress Note Date: 09/07/23 The patient is a 57-year-old male with extensive cardiac history who presented to the hospital with nausea, vomiting, and abdominal discomfort which had been occurring for approximately 2-3 days.. He was found to be in DKA and acute renal failure. EKG on arrival showed no significant ST changes. Troponins elevated at 62, 45, 39, and 33. Cardiology was notified for a non-ST elevated myocardial infarction, however coronary angiogram was delayed due to initial creatinine being 2.5. Patient underwent coronary angiogram revealing no progression in disease compared to his previous heart catheterization back in November. His beta blockers were increased for his new onset of cardiomyopathy. Patient was interviewed and examined resting in the recliner chair. He denies any current chest pain. No longer having abdominal discomfort. He is tolerating oral intake. GENERAL: Well-appearing, well-nourished and in no acute distress. NECK: Supple without JVD or thyromegaly. LUNGS: Breath sounds clear to auscultation bilaterally. Respiration equal and unlabored. No wheezes, rales or rhonchi. HEART: Regular rate and rhythm without murmurs, rubs or gallops. S1 and S2 heard. EXTREMITIES: Normal range of motion, no edema. No clubbing or cyanosis. Peripheral pulses intact and strong. Right radial site is healed TELEMETRY: Sinus rhythm overnight with PVCs. Heart rates in the 80s IMPRESSION: Non-ST elevated myocardial infarction History of multivessel coronary artery disease Dilated cardiomyopathy, EF 40% Congestive heart failure, systolic Diabetic ketoacidosis Acute renal failure with baseline creatinine at 1.5 Pancreatitis Current smoker PLAN: Continue current medication regimen Patient may be discharged from the cardiac standpoint Outpatient follow-up with primary outreach counselor Dr. Arambula I am dictating on behalf of Dr Cirilo Sanchez's history/physical and assessment/plan. Objective - Vital Signs Vital signs: Vital Signs Temp 98.6 F 09/07/23 09:00 Pulse 85 09/07/23 09:00 Resp 16 09/07/23 08:00 BP 130/85 09/07/23 09:00 Pulse Ox 95 09/07/23 08:00 FiO2 Intake & Output 09/06/23 09/07/23 09/07/23 18:59 06:59 18:59 Intake Total 425 Output Total 500 Balance -75 Weight 87.8 kg 94.3 kg Intake: Intake, IV Titration 225 Amount Sodium Chloride 0.9% 1, 225 000 ml @ 75 mls/hr IV . [id number] [facility] Rx#:[id number] Oral 200 Output: Urine 500 Other: Voiding Method Urinal Urinal # Voids 1 1 # Bowel Movements 1 - Labs CBC & Chem 7: 09/06/23 04:28 09/06/23 04:28
[2023-09-07 10:00] VITALS: BP 130/85; PULSE 85; RESP 16; TEMP 98.6
[2023-09-07] MEDS: PRASUGREL 10 MG TAB PO SCH (10:15)
--- NOTE | 2023-09-07 22:55 | P.DS ---
Providers Date of admission: 09/04/23 21:36 Attending physician: Bushra Estrella Consults: 09/04/23 21:34 Consult Physician Urgent Consulting Provider: Mumtaz Royal Consult Reason/Comments: intractable n/v, acute dka, parth, acute pancreatitis, nstemi Do you want consulting provider notified?: Already Contacted 09/04/23 21:35 Consult Physician Urgent Consulting Provider: Hussein Arambula Consult Reason/Comments: nstemi Do you want consulting provider notified?: Already Contacted 09/04/23 21:36 Consult Physician Urgent Consulting Provider: Clarissa Jensen Consult Reason/Comments: acute pancreatitis Do you want consulting provider notified?: Yes Primary care physician: Danny Mendes [facility] Course: Diagnoses: Acute diabetic ketoacidosis, anion gap is Closed Chest pain with significantly elevated troponin suspicious for non-STEMI Acute pancreatitis, alcoholic Danitza improved Alcohol use disorder Paroxysmal atrial fibrillation on a blood thinner at home History of coronary artery disease status post stent 2 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 Nicotine dependence Hospital course: this is a pleasant 57 years old male with past medical history of multipe medical problems including history of coronary artery disease status post 2 stents and ischemic cardiomyopathy with ejection fraction of 35-40%, alcohol use disorder. Diabetes mellitus, hypertension, hyperlipidemia and atrial fibrillation, And chronic kidney disease stage III. who came last night because of repeated vomiting , non bloody , associated with epigastric abdominal pain of two days duration ,pain is about 8/10 on presentation , associated with mild chest pain , central non radiating about 2-3 /10, no dyspnea , no coughing patient was found to have acute pancreatitis related to his alcohol use disorder and non-STEMI with elevated troponin, complicated by diabetic ketoacidosis and admission, he was admitted to the ICU and treated with insulin drip per protocol and and anion gap closed and sugar control. Also evaluated by GI team and cardiology team, he was treated with heparin drip and switched to Eliquis and if ENT which are his home dose ( confirmed to the staff and bedside nurse corinna, that they was and if ENT at home and they known new prescription because they got samples from cardiology office, as his co-pay is high, as per they donate more prescription upon discharge) also he was treated with IV fluids and bowel rest, patient showed quick interval improvement in his symptoms resolved and he tolerates diet and patient back to his baseline. Patient is fully awake oriented, denies chest pain dyspnea, no GI or urinary issue, no fever. 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 Patient was cleared for discharge by all consults is occluded and pulmonary, cardiology and GI team. Problems and management plan were discussed with the patient and he verbalized understanding and acceptance Patient was found stable and can be discharged home in guarded prognosis however he needs follow-up as an outpatient. Patient was instructed to follow up with PCP Dr. mendes within one week and patient agrees Patient was instructed to follow up with heel padder Dr. Arambula in one week, he told me he has appointment with him on 09/17, with Dr. Jensen from GI in 2 weeks Physical exam Gen: patient is a AAOx3, no distress CVS: S1-S2, RRR, no murmur Lungs: B/L CTA, no wheezing Abdomen: soft, no distention, no tenderness, positive bowel sounds Extremity: no leg edema or induration Time spent more than 35 minutes Patient Condition at Discharge: Serious Plan - Discharge Summary New Discharge Prescriptions: New Metoprolol Succinate (ER) [Toprol XL] 50 mg PO DAILY #30 tab Thiamine [Vitamin B-1] 100 mg PO DAILY #30 tab Continue ALPRAZolam [Xanax] 0.5 mg PO BID PRN PRN Reason: Anxiety Omeprazole 40 mg PO DAILY Atorvastatin [Lipitor] 80 mg PO HS 30 Days #30 tab Nitroglycerin Sl Tabs [Nitrostat] 0.4 mg SUBLINGUAL Q5M PRN #30 tab PRN Reason: Chest Pain lisinopriL [Zestril] 2.5 mg PO DAILY #30 tab Multivitamins, Thera [Multivitamin (formulary)] 1 tab PO DAILY INSULIN LISPRO (For Pump) [humaLOG (For Pump)] 0.01 units SQ-PUMP CONTINUOUS Spironolactone [Aldactone] 25 mg PO DAILY #30 tab Prasugrel [Effient] 10 mg PO DAILY 30 Days #30 tab Amiodarone [Cordarone] 200 mg PO DAILY #0 tab Apixaban [Eliquis] 2.5 mg PO BID Discontinued Metoprolol Succinate (ER) [Toprol XL] 25 mg PO DAILY Discharge Medication List ALPRAZolam [Xanax] 0.5 mg PO BID PRN 12/11/22 [History] INSULIN LISPRO (For Pump) [humaLOG (For Pump)] 0.01 units SQ-PUMP CONTINUOUS 12/11/22 [History] Omeprazole 40 mg PO DAILY 12/11/22 [History] Atorvastatin [Lipitor] 80 mg PO HS 30 Days #30 tab 12/14/22 [Rx] Nitroglycerin Sl Tabs [Nitrostat] 0.4 mg SUBLINGUAL Q5M PRN #30 tab 12/14/22 [Rx] Prasugrel [Effient] 10 mg PO DAILY 30 Days #30 tab 12/14/22 [Rx] Spironolactone [Aldactone] 25 mg PO DAILY #30 tab 12/14/22 [Rx] lisinopriL [Zestril] 2.5 mg PO DAILY #30 tab 12/14/22 [Rx] Amiodarone [Cordarone] 200 mg PO DAILY #0 tab 12/27/22 [Rx] Apixaban [Eliquis] 2.5 mg PO BID 09/04/23 [History] Multivitamins, Thera [Multivitamin (formulary)] 1 tab PO DAILY 09/04/23 [History] Metoprolol Succinate (ER) [Toprol XL] 50 mg PO DAILY #30 tab 09/07/23 [Rx] Thiamine [Vitamin B-1] 100 mg PO DAILY #30 tab 09/07/23 [Rx] Follow up Appointment(s)/Referral(s): [facility],Home [facility] [NON-STAFF] - 1 Week Cindy Ness NPC [REFERRING] - 2 Weeks (Gastroenterology Follow-up for acute alcoholic pancreatitis) Danny Mendes DO [Primary Care Provider] - 1-2 days Clarissa Jensen MD [STAFF PHYSICIAN] - 1 Week Hussein Arambula MD [STAFF PHYSICIAN] - 1 Week Patient Instructions/Handouts: Pancreatitis (DC) Discharge/Stand Alone Forms: AA Meetings [facility], Outpatient Counseling, Inp Substance Abuse Facilities Discharge Disposition: HOME SELF-CARE
== END 2023-09-07 11:08 | disposition home or self-care (01) | DRG 280 ==
LOC: EC 17:45 → 2SICU 21:36
PROVIDERS: ADMIT Hospitalist; ATTEND Hospitalist
PROC: B2111ZZ Fluoroscopy of Multiple Coronary Arteries using Low Osmolar Contrast (ICD-10-PCS; principal; 2023-09-05 19:30)
PROC: 4A023N7 Measurement of Cardiac Sampling and Pressure, Left Heart, Percutaneous Approach (ICD-10-PCS; principal; 2023-09-05 19:30)
DX: I21.4 Non-ST elevation (NSTEMI) myocardial infarction (principal); E11.11 Type 2 diabetes mellitus with ketoacidosis with coma; K85.20 Alcohol induced acute pancreatitis without necrosis or infection; I13.0 Hypertensive heart and chronic kidney disease with heart failure and stage 1 through stage 4 chronic kidney disease, or unspecified chronic kidney disease; N17.9 Acute kidney failure, unspecified; I50.20 Unspecified systolic (congestive) heart failure; E86.0 Dehydration; E11.22 Type 2 diabetes mellitus with diabetic chronic kidney disease; K80.20 Calculus of gallbladder without cholecystitis without obstruction; J44.9 Chronic obstructive pulmonary disease, unspecified; N18.30 Chronic kidney disease, stage 3 unspecified; I48.0 Paroxysmal atrial fibrillation; F10.20 Alcohol dependence, uncomplicated; Z79.4 Long term (current) use of insulin; Z11.52 Encounter for screening for COVID-19; I25.5 Ischemic cardiomyopathy; I34.0 Nonrheumatic mitral (valve) insufficiency; I49.3 Ventricular premature depolarization; E78.5 Hyperlipidemia, unspecified; F41.9 Anxiety disorder, unspecified; I25.2 Old myocardial infarction; I25.10 Atherosclerotic heart disease of native coronary artery without angina pectoris; F17.210 Nicotine dependence, cigarettes, uncomplicated; Z71.6 Tobacco abuse counseling; Z79.01 Long term (current) use of anticoagulants; Z79.02 Long term (current) use of antithrombotics/antiplatelets; Z79.899 Other long term (current) drug therapy; Z95.5 Presence of coronary angioplasty implant and graft; Z96.41 Presence of insulin pump (external) (internal); Z82.49 Family history of ischemic heart disease and other diseases of the circulatory system
CPT/HCPCS: 36415; 71046; 74176; 76700; 76937; 80051; 80053; 80306; 81003; 82009; 82150; 82247; 82565; 82947; 83036; 83605; 83690; 83735; 83880; 84075; 84100; 84132; 84450; 84460; 84478; 84484; 84520; 85025; 85610; 85730; 87636; 93005; 93306; 93458; 96361; 96365; 96366; 96375; 99291

== ENCOUNTER → 2023-10-03 | Outpatient (CLI) | payer OTHER ==
[2023-10-03 15:38] LABS: Basophils # (A) 0.02 X 10*3/uL (0.00-0.10); Basophils % (A) 0.5 %; Eosinophils # (A) 0.16 X 10*3/uL (0.04-0.35); Eosinophils % (A) 3.8 %; HGB 11.1 g/dL (13.0-17.0); Lymphocytes # (A) 1.18 X 10*3/uL (0.90-5.00); Lymphocytes % (A) 27.8 %; MCH 33.1 pg (27.0-32.0); MCHC 32.6 g/dL (32.0-37.0); MCV 101.5 FL (80.0-97.0); Mean Platelet Volume 11.6 FL (9.5-12.2); Monocytes # (A) 0.35 X 10*3/uL (0.20-1.00); Monocytes % (A) 8.2 %; NRBC Per 100 WBC 0 X 10*3/uL (0.00-0.01); Neutrophils # (A) 2.53 X 10*3/uL (1.80-7.70); Neutrophils % (A) 59.5 %; Platelet Count 263 X 10*3/uL (140-440); RBC 3.35 X 10*6/uL (4.40-5.60); RDW 12.6 % (11.5-14.5); WBC 4.25 X 10*3/uL (4.50-10.00)
[2023-10-03 16:11] LABS: % Iron Saturation 26.82 (15.00-50.00)
== END | disposition home or self-care (01) ==
LOC: LABWHC1 10:21
PROVIDERS: ATTEND Nurse Practitioner Family
DX: D53.9 Nutritional anemia, unspecified (principal)
CPT/HCPCS: 36415; 82607; 82728; 82746; 83540; 83550; 85025

== ENCOUNTER 2023-11-24 17:04 | Emergency (ER) | payer OTHER ==
--- NOTE | 2023-11-24 17:35 | ED ---
Recheck HPI - General Source: patient, RN notes reviewed Mode of arrival: ambulatory Limitations: no limitations <Mavis Hutson - Last Filed: 11/24/23 17:32> - General Source: patient, family, RN notes reviewed Mode of arrival: ambulatory <Charlene Khalil - Last Filed: 11/24/23 21:53> - General Chief Complaint: Recheck/Abnormal Lab/Rx Stated Complaint: Abn labs Time Seen by Provider: 11/24/23 17:32 - History of Present Illness Initial Comments: This is a 58 year old male who presents to the emergency department for abnormal lab work. He was contacted by his PCP, who advised him of the abnormality, however he cannot recall what this was. Reports a hx of CHF and he has had increased swelling to his lower extremities over the last 1-2 weeks. Denies any pain associated with this. (Mavis Hutson) Patient is a 58-year-old male presented to the ER with a chief complaint of bilateral ankle edema. Patient states has been going on for the past couple weeks. Patient also reports that he has been having a chest discomfort and increased short of breath with exertion. Patient does report that he sleeps on 2 pillows and also a wedge to prop him up. Patient denies any home O2 use, BiPAP or CPAP use. Patient follows up with Dr. Victor and has an echocardiogram scheduled in 2 weeks. Patient does have a past medical history significant of 3 cardiac stents. Patient was seen by PCP today and had lab work done. PCP contacted and advised him there was an abnormality and he should report to ER for IV Lasix and further evaluation. Patient does report epigastric pain which he believes to be due from coughing. Patient did have a recent bout of pancreatitis. Denies any nausea/vomiting. Denies any fevers, chills, night sweats, headaches, dysuria, constipation/diarrhea. (Charlene Khalil) - Related Data Home Medications Medication Instructions Recorded Confirmed ALPRAZolam [Xanax] 0.5 mg PO BID PRN 12/11/22 09/04/23 INSULIN LISPRO (For Pump) [humaLOG 0.01 units SQ-PUMP CONTINUOUS 12/11/22 09/04/23 (For Pump)] Omeprazole 40 mg PO DAILY 12/11/22 09/04/23 Apixaban [Eliquis] 2.5 mg PO BID 09/04/23 09/04/23 Multivitamins, Thera [Multivitamin 1 tab PO DAILY 09/04/23 09/04/23 (formulary)] Previous Rx's Medication Instructions Recorded Atorvastatin [Lipitor] 80 mg PO HS 30 Days #30 tab 12/14/22 Nitroglycerin Sl Tabs [Nitrostat] 0.4 mg SUBLINGUAL Q5M PRN #30 tab 12/14/22 Prasugrel [Effient] 10 mg PO DAILY 30 Days #30 tab 12/14/22 Spironolactone [Aldactone] 25 mg PO DAILY #30 tab 12/14/22 lisinopriL [Zestril] 2.5 mg PO DAILY #30 tab 12/14/22 Amiodarone [Cordarone] 200 mg PO DAILY #0 tab 12/27/22 Metoprolol Succinate (ER) [Toprol 50 mg PO DAILY #30 tab 09/07/23 XL] Thiamine [Vitamin B-1] 100 mg PO DAILY #30 tab 09/07/23 Allergies Allergy/AdvReac Type Severity Reaction Status Date / Time No Known Allergies Allergy Verified 11/24/23 17:16 Review of Systems ROS Other: All systems not noted in ROS Statement are negative. <Mavis Hutson - Last Filed: 11/24/23 17:32> ROS Other: All systems not noted in ROS Statement are negative. <Charlene Khalil - Last Filed: 11/24/23 21:53> ROS Statement: Those systems with pertinent positive or pertinent negative responses have been documented in the HPI. Past Medical History Past Medical History: Coronary Artery Disease (CAD), Diabetes Mellitus, Myocardial Infarction ([place]) Additional Past Medical History / Comment(s): Pneumothorax Last Myocardial Infarction Date:: nov 2022 History of Any Multi-Drug Resistant Organisms: None Reported Past Surgical History: Heart Catheterization With Stent Additional Past Surgical History / Comment(s): Chest tube Date of Last Stent Placement:: 12/11/22 Past Psychological History: No Psychological Hx Reported Smoking Status: Current every day smoker Past Alcohol Use History: Occasional Past Drug Use History: Marijuana - Past Family History Father Family Medical History: Deep Vein Thrombosis (DVT), Myocardial Infarction ([place]) Mother Family Medical History: AFIB <Mavis Hutson - Last Filed: 11/24/23 17:32> General Exam Limitations: no limitations <Mavis Hutson - Last Filed: 11/24/23 17:32> General appearance: alert, in no apparent distress Head exam: Present: atraumatic, normocephalic, normal inspection Eye exam: Present: normal appearance, PERRL, EOMI. Absent: scleral icterus, conjunctival injection, periorbital swelling Respiratory exam: Present: normal lung sounds bilaterally. Absent: respiratory distress, wheezes, rales, rhonchi, stridor Cardiovascular Exam: Present: regular rate, normal rhythm, normal heart sounds. Absent: systolic murmur, diastolic murmur, rubs, gallop, clicks GI/Abdominal exam: Present: soft, normal bowel sounds. Absent: distended, tenderness, guarding, rebound, rigid Extremities exam: Present: normal inspection, full ROM, normal capillary refill, pedal edema (2+ pretibial pitting edema bilaterally). Absent: tenderness, joint swelling, calf tenderness Neurological exam: Present: alert, oriented X3, CN II-XII intact Psychiatric exam: Present: normal affect, normal mood Skin exam: Present: warm, dry, intact, normal color. Absent: rash <Charlene Khalil - Last Filed: 11/24/23 21:53> - General Exam Comments Initial Comments: Visual Physical Exam Vital signs reviewed General: Well-appearing, nontoxic, no acute distress. Head: Normocephalic, atraumatic Eyes: PERRLA, EOMI ENT: Airway patent Chest: Nonlabored breathing Skin: No visual rash, normal skin tone Neuro: Alert and oriented 3 Musculoskeletal: No gross abnormalities (Mavis Hutson) Course Vital Signs 11/24/23 11/24/23 11/24/23 17:13 18:50 21:29 Temperature 97.5 F L 98.7 F Pulse Rate 75 72 68 Respiratory 18 17 17 Rate Blood Pressure 137/86 136/87 130/81 O2 Sat by Pulse 100 95 97 Oximetry Medical Decision Making <Mavis Hutson - Last Filed: 11/24/23 17:32> - Lab Data Result diagrams: 11/24/23 17:42 11/24/23 17:42 - EKG Data -: EKG Interpreted by Me - Radiology Data Radiology results: report reviewed, image reviewed <Charlene Khalil - Last Filed: 11/24/23 21:53> - Medical Decision Making I performed the QuickNote portion of this chart. Signed Mavis Hutson PA-C. (Mavis Hutson) Was pt. sent in by a medical professional or institution (, [employer], SHEET METAL ERECTOR, urgent care, hospital, or usp...) When possible be specific @ -Sent from PCP office for further evaluation due to abnormal labs. Did you speak to anyone other than the patient for history (EMS, parent, family, police, friend...)? What history was obtained from this source @ - providing some past medical history and HPI Did you review nursing and triage notes (agree or disagree)? Why? @ -I reviewed and agree with nursing and triage notes Were old charts reviewed (outside hosp., previous admission, EMS record, old EKG, old radiological studies, urgent care reports/EKG's, usp records)? Report findings @ -No old charts were reviewed Differential Diagnosis (chest pain, altered mental status, abdominal pain women, abdominal pain men, vaginal bleeding, weakness, fever, dyspnea, syncope, h eadache, dizziness, GI bleed, back pain, seizure, CVA, palpatations, mental health, musculoskeletal)? @ -Differential Chest Pain:Stable Angina, Unstable Angina, STEMI, NSTEMI Aortic Dissection, Pneumothorax, Musculoskeletal, Esophageal Spasm GERD, Cholecystitis, Pancreatitis, Zoster, this is not meant to be an all-inclusive list. EKG interpreted by me (3pts min.). @ -As above X-rays interpreted by me (1pt min.). @ -Chest x-ray interpreted by me shows right lung opacities which may reflect atelectasis. CT interpreted by me (1pt min.). @ -None done U/S interpreted by me (1pt. min.). @ -None done What testing was considered but not performed or refused? (CT, X-rays, U/S, labs)? Why? @ -None What meds were considered but not given or refused? Why? @ -None Did you discuss the management of the patient with other professionals (professionals i.e. JEFFERSON Remy, SHEET METAL ERECTOR, lab, RT, psych nurse, social work case manager, information receptionist, teacher, client sales and service officer, supervisor case loading)? Give summary @ -No Was smoking cessation discussed for >3mins.? @ -I discussed smoking cessation for greater than 3 minutes. The risk of s moking were discussed with the patient including but not limited to risks of cancer, stroke, coronary artery disease and COPD. Also discussed with patient were multiple methods of quitting smoking. Lastly we discussed the financial cost of smoking. Was critical care preformed (if so, how long)? @ -No Were there social determinants of health that impacted care today? How? (Homelessness, low income, unemployed, alcoholism, drug addiction, transportation, low edu. Level, literacy, decrease access to med. care, senior care, rehab)? @ -No Was there de-escalation of care discussed even if they declined (Discuss DNR or withdrawal of care, Hospice)? DNR status @ -No What co-morbidities impacted this encounter? (DM, HTN, Smoking, COPD, CAD, Cancer, CVA, ARF, Chemo, Hep., AIDS, mental health diagnosis, sleep apnea, morbid obesity)? @ -Smoking, CAD, diabetes mellitus, congestive heart failure Was patient admitted / discharged? Hospital course, mention meds given and route, prescriptions, significant lab abnormalities, going to OR and other pertinent info. @ -Discharge. Patient is a 58-year-old male presented to ER with chief complaint of bilateral peripheral edema. Patient sent here by PCP for further evaluation due to edema and dyspnea. Patient also reports abnormal labs but is unsure of what lab values. Vitals stable. oxygen saturation 95% on room air. History and physical exam were completed. Patient in no signs of acute distress. Patient did have 2+ bilateral pretibial pitting edema. Labs obtained in the ER significant for BNP 12,100 unchanged from 09/04/23. EKG without signs of acute infarct or ischemia. Chest x-ray interpreted by me shows right lung opacities which may reflect atelectasis. Patient did receive 40 mg of IV Lasix. Due to patient's stable condition without oxygen use patient will be discharged. Patient also prescribed by mouth Lasix by PCP. I advised patient to take Lasix as prescribed and to follow-up with PCP in the next 1 to 2 days. I discussed smoking cessation for greater than 3 minutes. The risk of smoking were discussed with the patient including but not limited to risks of cancer, stroke, coronary artery disease and COPD. Also discussed with patient were multiple methods of quitting smoking. Lastly we discussed the financial cost of smoking. Return parameters were discussed. Patient was discharged stable condition with follow-up to PCP. Patient expressed understanding and agreement with care plan. Undiagnosed new problem with uncertain prognosis? @ -No Drug Therapy requiring intensive monitoring for toxicity (Heparin, Nitro, Insulin, Cardizem)? @ -No Were any procedures done? @ -No Diagnosis/symptom? @ -Congestive heart failure, dyspnea Acute, or Chronic, or Acute on Chronic? @ -Acute on chronic Uncomplicated (without systemic symptoms) or Complicated (systemic symptoms)? @ -Complicated Side effects of treatment? @ -No Exacerbation, Progression, or Severe Exacerbation? @ -Exacerbation Poses a threat to life or bodily function? How? (Chest pain, [place], [place], pneumonia, PE, COPD, DKA, ARF, appy, cholecystitis, CVA, Diverticulitis, Homicidal, Suicidal, threat to staff... and all critical care pts) @ -No (Charlene Khalil) - Lab Data Lab Results 11/24/23 11/24/23 11/24/23 Range/Units 17:42 17:42 17:42 WBC 5.3 (3.8-10.6) k/uL RBC 3.53 L (4.30-5.90) m/uL Hgb 11.6 L (13.0-17.5) gm/dL Hct 35.8 L (39.0-53.0) % MCV 101.6 H (80.0-100.0) fL MCH 32.8 (25.0-35.0) pg MCHC 32.3 (31.0-37.0) g/dL RDW 15.7 H (11.5-15.5) % Plt Count 230 (150-450) k/uL MPV 8.1 Neutrophils % 54 % Lymphocytes % 34 % Monocytes % 7 % Eosinophils % 2 % Basophils % 0 % Neutrophils # 2.9 (1.3-7.7) k/uL Lymphocytes # 1.8 (1.0-4.8) k/uL Monocytes # 0.4 (0-1.0) k/uL Eosinophils # 0.1 (0-0.7) k/uL Basophils # 0.0 (0-0.2) k/uL Hypochromasia Slight Macrocytosis Slight PT 12.2 (10.0-12.5) sec INR 1.1 (<1.2) APTT 25.7 (22.0-30.0) sec Sodium 139 (137-145) mmol/L Potassium 4.6 (3.5-5.1) mmol/L Chloride 110 H (98-107) mmol/L Carbon Dioxide 22 (22-30) mmol/L Anion Gap 7 mmol/L BUN 28 H (9-20) mg/dL Creatinine 1.14 (0.66-1.25) mg/dL Est GFR (CKD-EPI)AfAm 82 (>60 ml/min/1.73 sqM) Est GFR (CKD-EPI)NonAf 71 (>60 ml/min/1.73 sqM) Glucose 146 H (74-99) mg/dL Calcium 9.4 (8.4-10.2) mg/dL Total Bilirubin 1.1 (0.2-1.3) mg/dL AST 36 (17-59) U/L ALT 40 (4-49) U/L Alkaline Phosphatase 73 (38-126) U/L NT-Pro-B Natriuret Pep 36298 pg/mL Total Protein 6.3 (6.3-8.2) g/dL Albumin 3.5 (3.5-5.0) g/dL Influenza Type A (PCR) (Not Detectd) Influenza Type B (PCR) (Not Detectd) RSV (PCR) (Not Detectd) SARS-CoV-2 (PCR) (Not Detectd) 11/24/23 Range/Units 19:09 WBC (3.8-10.6) k/uL RBC (4.30-5.90) m/uL Hgb (13.0-17.5) gm/dL Hct (39.0-53.0) % MCV (80.0-100.0) fL MCH (25.0-35.0) pg MCHC (31.0-37.0) g/dL RDW (11.5-15.5) % Plt Count (150-450) k/uL MPV Neutrophils % % Lymphocytes % % Monocytes % % Eosinophils % % Basophils % % Neutrophils # (1.3-7.7) k/uL Lymphocytes # (1.0-4.8) k/uL Monocytes # (0-1.0) k/uL Eosinophils # (0-0.7) k/uL Basophils # (0-0.2) k/uL Hypochromasia Macrocytosis PT (10.0-12.5) sec INR (<1.2) APTT (22.0-30.0) sec Sodium (137-145) mmol/L Potassium (3.5-5.1) mmol/L Chloride (98-107) mmol/L Carbon Dioxide (22-30) mmol/L Anion Gap mmol/L BUN (9-20) mg/dL Creatinine (0.66-1.25) mg/dL Est GFR (CKD-EPI)AfAm (>60 ml/min/1.73 sqM) Est GFR (CKD-EPI)NonAf (>60 ml/min/1.73 sqM) Glucose (74-99) mg/dL Calcium (8.4-10.2) mg/dL Total Bilirubin (0.2-1.3) mg/dL AST (17-59) U/L ALT (4-49) U/L Alkaline Phosphatase (38-126) U/L NT-Pro-B Natriuret Pep pg/mL Total Protein (6.3-8.2) g/dL Albumin (3.5-5.0) g/dL Influenza Type A (PCR) Not Detected (Not Detectd) Influenza Type B (PCR) Not Detected (Not Detectd) RSV (PCR) Not Detected (Not Detectd) SARS-CoV-2 (PCR) Not Detected (Not Detectd) - EKG Data EKG Comments: EKG taken at 12: 55 shows sinus rhythm with no acute ST segment or T wave abnormalities. Ventricular rate 69, RI interval 180, QRS duration 118, QT/QTc 449/468. (Charlene Khalil) Disposition <Mavis Hutson - Last Filed: 11/24/23 17:32> Is patient prescribed a controlled substance at d/c from ED?: No Time of Disposition: 21:26 <Charlene Khalil - Last Filed: 11/24/23 21:53> Clinical Impression: Dyspnea, Congestive heart failure Disposition: HOME SELF-CARE Condition: Stable Instructions (If sedation given, give patient instructions): Heart Failure (DC), How to Stop Smoking (ED) Additional Instructions: Take Lasix as prescribed by PCP. Follow-up with Dr. Victor as scheduled. Return to ER for any new or worsening symptoms. Referrals: Hussein Arambula MD [STAFF PHYSICIAN] - 1-2 days
[2023-11-24 18:29] LABS: Basophils % (A) 0 %; Eosinophils # (A) 0.1 k/uL (0-0.7); Eosinophils % (A) 2 %; HCT 35.8 % (39.0-53.0); HGB 11.6 gm/dL (13.0-17.5); Hypochromasia Slight; Lymphocytes # (A) 1.8 k/uL (1.0-4.8); Lymphocytes % (A) 34 %; MCH 32.8 pg (25.0-35.0); MCHC 32.3 g/dL (31.0-37.0); MCV 101.6 fL (80.0-100.0); Macrocytosis Slight; Mean Platelet Volume 8.1; Monocytes # (A) 0.4 k/uL (0-1.0); Monocytes % (A) 7 %; Neutrophils # (A) 2.9 k/uL (1.3-7.7); Neutrophils % (A) 54 %; Platelet Count 230 k/uL (150-450); RBC 3.53 m/uL (4.30-5.90); RDW 15.7 % (11.5-15.5); WBC 5.3 k/uL (3.8-10.6)
[2023-11-24 18:38] LABS: INR 1.1 (<1.2); Partial Thromboplastin Time 25.7 sec (22.0-30.0); Prothrombin Time 12.2 sec (10.0-12.5)
[2023-11-24 18:54] LABS: ALT 40 U/L (4-49); AST 36 U/L (17-59); African American GFR (CKD) 82 (>60 ml/min/1.73 sqM); Albumin 3.5 g/dL (3.5-5.0); Alkaline Phosphatase 73 U/L (38-126); Anion Gap 7 mmol/L; Blood Urea Nitrogen 28 mg/dL (9-20); Calcium 9.4 mg/dL (8.4-10.2); Carbon Dioxide 22 mmol/L (22-30); Chloride 110 mmol/L (98-107); Glucose 146 mg/dL (74-99); Non-African American GFR(CKD) 71 (>60 ml/min/1.73 sqM); Potassium 4.6 mmol/L (3.5-5.1); Sodium 139 mmol/L (137-145); Total Bilirubin 1.1 mg/dL (0.2-1.3); Total Protein 6.3 g/dL (6.3-8.2)
[2023-11-24 19:03] LABS: NT-Pro-B-Type Natriuretic Pept 12100 pg/mL
[2023-11-24] MEDS ORDERED: FUROSEMIDE 10 MG/ML 4 ML VIAL IV STA (19:09)
[2023-11-24 19:10] VITALS: RESP 17
--- NOTE | 2023-11-24 21:33 | XR ---
EXAMINATION TYPE: XR chest 2V DATE OF EXAM: 11/24/2023 8:42 PM CLINICAL INDICATION:Male, 58 years old with history of dyspnea; [facility] COMPARISON: 09/04/2023 TECHNIQUE: XR chest 2V. Frontal and lateral views of the chest.. FINDINGS: New compared to the prior study is elevation of the right hemidiaphragm with opacity at the right josseline g base extending medially with partial silhouetting of the right heart border. Trace right pleural ef fusion not excluded. Slightly nodular opacity seen on the frontal view towards the right lung base la terally. Left costophrenic angle is sharp. Left lung appears clear. No visible pneumothorax. Cardiomediastinal silhouette appears stable. Heart size is within normal limits. No vascular congesti on. Mild degenerative changes of the thoracic spine. No acute osseous pathology demonstrated. IMPRESSION: Opacities at the right lung base likely reflect atelectasis involving the right middle and/or lower l obes. Superimposed infection or even neoplasm cannot be excluded. FOLLOW-UP: Follow-up as clinically warranted.
[2023-11-24 21:53] VITALS: BP 130/81; PULSE 68; TEMP 98.7
== END 2023-11-24 21:35 | disposition home or self-care (01) ==
LOC: EC 17:04
DX: I50.9 Heart failure, unspecified (principal); R06.00 Dyspnea, unspecified; I25.10 Atherosclerotic heart disease of native coronary artery without angina pectoris; F17.200 Nicotine dependence, unspecified, uncomplicated; F12.90 Cannabis use, unspecified, uncomplicated; Z20.822 Contact with and (suspected) exposure to COVID-19; Z79.4 Long term (current) use of insulin; Z79.899 Other long term (current) drug therapy; Z79.01 Long term (current) use of anticoagulants
CPT/HCPCS: 36415; 93005; 83880; 80053; 85025; 85610; 85730; 87636; 71046; 99284; 99406; 96374; J1940

== ENCOUNTER → 2024-01-04 | Outpatient (CLI) | payer OTHER ==
[2024-01-04 19:14] LABS: Blood Urea Nitrogen 25.1 mg/dL (9.0-27.0); Carbon Dioxide 23.6 mmol/L (21.6-31.8); Chloride 105 mmol/L (96-109); Potassium 4.3 mmol/L (3.5-5.5); Sodium 141 mmol/L (135-145)
== END | disposition home or self-care (01) ==
LOC: LABPAT 10:17
PROVIDERS: ATTEND Internal Medicine Interventional Cardiology
DX: Z01.812 Encounter for preprocedural laboratory examination (principal); I25.10 Atherosclerotic heart disease of native coronary artery without angina pectoris
CPT/HCPCS: 80051; 82565; 84520

== ENCOUNTER 2024-01-09 09:48 | Day surgery (SDC) | payer OTHER ==
[~2024-01-09 09:48] MED LIST: ALPRAZolam 0.25 MG TAB PO PRN; ALPRAZolam 0.5 MG TAB PO PRN; NITROGLYCERIN SL TABS 0.4 MG TAB SUBLINGUAL PRN; SODIUM CHLORIDE 0.9% 1,000 ML in EMPTY BAG 1 BAG IV SCH
[2024-01-09] MEDS: SODIUM CHLORIDE 0.9% 1,000 ML IV ONE (10:02)
[2024-01-09 10:17] LABS: Glucose,Whole Blood 143 mg/dL (70-110)
[2024-01-09 10:30] LABS: Basophils % (A) 1 %; Eosinophils # (A) 0.2 k/uL (0-0.7); Eosinophils % (A) 5 %; HCT 44.4 % (39.0-53.0); HGB 14.3 gm/dL (13.0-17.5); Hypochromasia Slight; Lymphocytes # (A) 1.4 k/uL (1.0-4.8); Lymphocytes % (A) 29 %; MCH 31.7 pg (25.0-35.0); MCHC 32.2 g/dL (31.0-37.0); MCV 98.4 fL (80.0-100.0); Mean Platelet Volume 8.5; Monocytes # (A) 0.2 k/uL (0-1.0); Monocytes % (A) 5 %; Neutrophils # (A) 2.7 k/uL (1.3-7.7); Neutrophils % (A) 57 %; Platelet Count 307 k/uL (150-450); RBC 4.51 m/uL (4.30-5.90); RDW 14.7 % (11.5-15.5); WBC 4.7 k/uL (3.8-10.6)
[2024-01-09] MEDS ORDERED: HEPARIN SODIUM 1,000 UN/ML (10ML VL) ONE (11:22)
[2024-01-09] MEDS ORDERED: VERAPAMIL 2.5 MG/ML 2 ML AMP ONE (11:22)
[2024-01-09] MEDS ORDERED: LIDOCAINE 1% INJ 10MG/ML (20 ML MDV) ONE (11:22)
[2024-01-09] MEDS: LIDOCAINE 2% (PF) 20 MG/ML 2 ML VIAL SQ ONE (12:01)
[2024-01-09] MEDS: MIDAZOLAM 2 MG/2 ML VIAL IVP ONE ×2 (12:02→12:52)
[2024-01-09] MEDS ORDERED: fentaNYL (PF) 50 MCG/ML 2 ML AMP ONE (12:03)
[2024-01-09] MEDS: fentaNYL (PF) 50 MCG/1 ML VIAL IVP ONE ×2 (12:07→13:24)
[2024-01-09] MEDS: HEPARIN SODIUM 1,000 UN/ML (10ML VL) IVP ONE ×3 (12:18→13:08)
[2024-01-09] MEDS ORDERED: PRASUGREL 10 MG TAB ONE (12:29)
[2024-01-09] MEDS: PRASUGREL 10 MG TAB PO ONE (12:34)
[2024-01-09] MEDS ORDERED: MAG HYDROX/AL HYDROX/SIMETH 30 ML CUP PO PRN (13:34)
[2024-01-09] MEDS ORDERED: RX INFO: IV CONTRAST WAS GIVEN 1 EACH MISC MISCELLANE PRN (13:34)
[2024-01-09] MEDS ORDERED: ATROPINE SULFATE 0.1 MG/ML 10ML SYRINGE IV PRN (13:34)
--- NOTE | 2024-01-09 13:41 | P.PCN ---
Date of Procedure: 01/09/24 Operative Findings: CARDIAC CATHETERIZATION AND PERCUTANEOUS CORONARY INTERVENTION PERFORMING PHYSICIAN: Hussein Arambula MD, [facility] PROCEDURE PERFORMED: 1. Selective right and left coronary angiogram 2. Left heart catheterization 3. Successful stenting of mid LAD using 2.75 x 18 mm Xience GANESH with an exce llent angiographic results with adjunctive use of Doppler wire and intravascular imaging 4. Ultrasound-guided access of the right common femoral artery and right common femoral artery angiogram INDICATION: Severe cardiomyopathy in this 58-year-old gentleman who is known to have CAD with a prior revascularization COMPLICATION: None APPROACH: Right common femoral artery LEVEL OF SEDATION: Moderate with the sedation time off [] minutes PROCEDURE DESCRIPTION: After obtaining informed consent the patient was brought to the cardiac Refrigeration Supervisor. The right common femoral artery was cannulated using micropuncture technique under ultrasound guidance and the micropuncture wire passed easily then I placed a 6 Lao sheath at the right common femoral artery. Please note that the patient does not have any right radial pulse nor good signal with Doppler. After that I did selective right and left coronary angiogram using JR4 and JL 4 catheters. Left heart catheterization was performed using the JR4 catheter which crossed the aortic valve then I did pullback across the valve. After that I did intervene on the left anterior descending artery after I did perform Doppler wire measurement of the left circumflex and left anterior descending artery. The procedure was completed with no complication. I did selective right common femoral artery angiogram by the end. And we did manual pullback regarding the sheath removal. SELECTIVE CORONARY ANGIOGRAM: The right coronary artery: Large-caliber vessel and a dominant vessel. The RCA is angiographically normal. Distally bifurcates into PDA and PLV branches both appear to be angiographically normal Left main: Has mild disease only. Bifurcates into an LCx and LAD The left circumflex: Large-caliber vessel nondominant vessel with intermediate lesion in the left circumflex documented to be nonflow limiting by Doppler wire The left anterior descending artery: The LAD is stented in the proximal to midportion with mild in-stent restenosis. Distal to the stented segment there was a lesion appears to be in the range of 60% and was intermediate angiographically but documented to be flow-limiting by Doppler wire HEMODYNAMICS: The LVEDP was about 24 mmHg with no significant gradient across aortic valve PCI OF THE LAD: The initial plan was to do double wire measurement of the left circumflex and left anterior descending artery. After zeroing the Doppler wire and equalized in between the Doppler wire and guiding catheter we did engage the left main using JL 4 catheter. After that I did wire the left circumflex and we did a Do ppler wire measurement with IFR came in to be at 1.0. Subsequently the wire was directed toward the left anterior descending artery. I did after that an IFR and that came in to be abnormal at 0.88. After that I did decided to intervene on the left anterior descending artery. Attempting advancing 2.5 mm noncompliant balloon to the lesion was unsuccessful in spite of using guide liner but was successful using double wire with a run-through wire as a lulú wire in addition to the Doppler wire. Please note that initially we did attempt advancing intravascular ultrasound but the catheter was going only proximal to the lesion inside the previous stent and that showed that the stent appeared to be slightly underexpanded. After that I was able to get a 2.5 mm balloon. Attempting advancing 3.0 x 18 mm stent was unsuccessful in spite of using double wire and also GuideLiner but finally I decided to use better backup support so I changed my guide from JL 4 guide to CLS 3.5 guide. I rewired the LAD at that time using 2 wires. The first wire was run-through wire and a second wire was an Ironman. With that I was able to advance a 3.5 mm noncompliant balloon where the balloon was advanced to the stented segment and I did balloon angioplasty of the stented segment and then I was able to advance 2.75 x 18 mm stent where the stent was positioned under fluoroscopy guidance and deployed under fluoroscopy guidance. The area of overlap was postdilated using the stent balloon. Final angiogram showed good angiographic results and the procedure was performed with no complication. Finally I did selective right common femoral artery angiogram CONCLUSION: Patent stent in the mid left anterior descending artery. Intermediate lesion involving the mid LAD distal to the stented segment. The lesion was flow- limiting by Doppler wire. I performed successful stenting of the LAD Intermediate disease involving the left circumflex documented to be nonflow limiting by Doppler wire Elevated left-sided filling pressure POSTPROCEDURE MANAGEMENT: 1. Dual antiplatelet therapy using aspirin and Effient for at least 6 month 2. Aggressive cholesterol control 3. Follow-up with the patient
[2024-01-09] MEDS: IOPAMIDOL-370 100ML BTL INTRATHECA ONE ×2 (13:44→13:45)
[2024-01-09] MEDS: SODIUM CHLORIDE 0.9% 1,000 ML in EMPTY BAG 1 BAG IV SCH (18:22)
[2024-01-09] MEDS: ASPIRIN 325 MG TAB PO STA ×2 (18:22→21:43)
[2024-01-09] MEDS: INSULIN LISPRO (For Pump) 100 UNIT/ML VIAL SQ-PUMP SCH (18:42)
[2024-01-09] MEDS: SACUBITRIL/VALSARTAN 24 MG-26 MG TABLET PO SCH (19:49)
[2024-01-09] MEDS: ACETAMINOPHEN TAB 325 MG TAB PO PRN (19:49)
[2024-01-09] MEDS: ZOLPIDEM 5 MG TAB PO PRN (19:49)
[2024-01-09] MEDS: ATORVASTATIN 80 MG TAB PO SCH (19:49)
[2024-01-09 23:32] VITALS: RESP 16
[2024-01-10] MEDS: PANTOPRAZOLE 40 MG TABLET PO SCH (06:33)
[2024-01-10 08:20] LABS: African American GFR (CKD) >90 (>60 ml/min/1.73 sqM); Anion Gap 9 mmol/L; Blood Urea Nitrogen 19 mg/dL (9-20); Calcium 8.6 mg/dL (8.4-10.2); Carbon Dioxide 18 mmol/L (22-30); Chloride 112 mmol/L (98-107); Glucose 136 mg/dL (74-99); Non-African American GFR(CKD) 85 (>60 ml/min/1.73 sqM); Potassium 3.9 mmol/L (3.5-5.1); Sodium 139 mmol/L (137-145)
[2024-01-10 08:46] LABS: Basophils % (A) 0 %; Eosinophils # (A) 0.1 k/uL (0-0.7); Eosinophils % (A) 3 %; HCT 40.9 % (39.0-53.0); HGB 12.7 gm/dL (13.0-17.5); Hypochromasia Slight; Lymphocytes % (A) 20 %; MCH 30.4 pg (25.0-35.0); MCV 98.2 fL (80.0-100.0); Mean Platelet Volume 8.5; Monocytes # (A) 0.4 k/uL (0-1.0); Monocytes % (A) 8 %; Neutrophils # (A) 3.1 k/uL (1.3-7.7); Neutrophils % (A) 65 %; Platelet Count 240 k/uL (150-450); RBC 4.17 m/uL (4.30-5.90); RDW 14.8 % (11.5-15.5); WBC 4.8 k/uL (3.8-10.6)
[2024-01-10] MEDS: ASPIRIN 81 MG PO SCH (09:00)
[2024-01-10] MEDS: MULTIVITAMINS, THERA 1 EACH TAB PO SCH (09:00)
[2024-01-10] MEDS: FUROSEMIDE 20 MG TAB PO SCH (09:00)
[2024-01-10] MEDS: METOPROLOL SUCCINATE (ER) 50 MG TAB.ER.24H PO SCH (09:00)
[2024-01-10] MEDS: SPIRONOLACTONE 25 MG TAB PO SCH (09:00)
[2024-01-10] MEDS: APIXABAN 2.5 MG TABLET PO SCH (09:00)
[2024-01-10] MEDS: PRASUGREL 10 MG TAB PO SCH (09:00)
[2024-01-10] MEDS: POTASSIUM CHLORIDE ER 20 MEQ TAB.ER PO SCH (09:00)
[2024-01-10] MEDS: AMIODARONE 100 MG TAB PO SCH (09:01)
--- NOTE | 2024-01-10 09:05 | P.DS ---
Providers Attending physician: Hussein Arambula Consults: 01/09/24 13:34 Consult Physician Routine Consulting Provider: [facility] Consult Reason/Comments: Post Interventional patient Do you want consulting provider notified?: Already Contacted Primary care physician: Danny Scott [facility] Course: The patient is a pleasant 58-year-old gentleman who underwent yesterday successful balloon angioplasty and stenting of the left anterior descending artery from right femoral approach The patient was seen and evaluated this morning. He is asymptomatic. He is hemodynamically stable. Right groin is soft nontender with a good pulse. The patient is going to be discharged home on triple therapy and the medical treatment for cardiomyopathy and I will follow-up with the patient next week in the office Plan - Discharge Summary Discharge Rx Participant: No New Discharge Prescriptions: New Aspirin 81 mg PO DAILY tab Continue ALPRAZolam [Xanax] 0.5 mg PO BID PRN PRN Reason: Anxiety Omeprazole 40 mg PO DAILY Atorvastatin [Lipitor] 80 mg PO HS 30 Days #30 tab Nitroglycerin Sl Tabs [Nitrostat] 0.4 mg SUBLINGUAL Q5M PRN #30 tab PRN Reason: Chest Pain Multivitamins, Thera [Multivitamin (formulary)] 1 tab PO DAILY Metoprolol Succinate (ER) [Toprol XL] 50 mg PO DAILY #30 tab Furosemide [Lasix] 20 mg PO DAILY Sacubitril/Valsartan [Entresto 24 mg-26 mg Tablet] 1 each PO BID Amiodarone [Cordarone] 100 mg PO DAILY INSULIN LISPRO (For Pump) [humaLOG (For Pump)] 0.01 units SQ-PUMP CONTINUOUS Spironolactone [Aldactone] 25 mg PO DAILY #30 tab Prasugrel [Effient] 10 mg PO DAILY 30 Days #30 tab Apixaban [Eliquis] 2.5 mg PO BID Potassium Chloride [K-Tab ER] 20 meq PO DAILY Empagliflozin [Jardiance] 10 mg PO DAILY Discharge Medication List ALPRAZolam [Xanax] 0.5 mg PO BID PRN 12/11/22 [History] INSULIN LISPRO (For Pump) [humaLOG (For Pump)] 0.01 units SQ-PUMP CONTINUOUS 12/11/22 [History] Omeprazole 40 mg PO DAILY 12/11/22 [History] Atorvastatin [Lipitor] 80 mg PO HS 30 Days #30 tab 12/14/22 [Rx] Nitroglycerin Sl Tabs [Nitrostat] 0.4 mg SUBLINGUAL Q5M PRN #30 tab 12/14/22 [Rx] Prasugrel [Effient] 10 mg PO DAILY 30 Days #30 tab 12/14/22 [Rx] Spironolactone [Aldactone] 25 mg PO DAILY #30 tab 12/14/22 [Rx] Apixaban [Eliquis] 2.5 mg PO BID 09/04/23 [History] Multivitamins, Thera [Multivitamin (formulary)] 1 tab PO DAILY 09/04/23 [History] Metoprolol Succinate (ER) [Toprol XL] 50 mg PO DAILY #30 tab 09/07/23 [Rx] Amiodarone [Cordarone] 100 mg PO DAILY 01/05/24 [History] Empagliflozin [Jardiance] 10 mg PO DAILY 01/05/24 [History] Furosemide [Lasix] 20 mg PO DAILY 01/05/24 [History] Potassium Chloride [K-Tab ER] 20 meq PO DAILY 01/05/24 [History] Sacubitril/Valsartan [Entresto 24 mg-26 mg Tablet] 1 each PO BID 01/05/24 [History] Aspirin 81 mg PO DAILY tab 01/10/24 [Rx] Follow up Appointment(s)/Referral(s): Hussein Arambula MD [STAFF PHYSICIAN] - 1 Week (THE OFFICE WILL CALL YOU WITH AN APPOINTMENT DATE AND TIME) Patient Instructions/Handouts: Moderate Sedation (DC), After Radial Heart Catheterization (GEN) Activity/Diet/Wound Care/Special Instructions: No driving for two days Ok to shower tomorrow but no baths, pools, lakes, doing dishes by hand for five days. Signs of infection IE: fever, rash, drainage from puncture site, swelling go to ER/doctor for immediate evaluation. Avoid using right wrist/hand to bend, flex, lift greater than 5 lbs for five days. For Heavy Bleeding of puncture site apply firm direct pressure and return to ER. Do not attempt to drive self. low sodium/low fat diet medications as directed by Cardiologists
[2024-01-10 09:41] VITALS: BP 124/76; PULSE 78; TEMP 97.4
== END 2024-01-10 09:19 | disposition home or self-care (01) ==
LOC: CATHCVL 09:48 → 3SCARD 13:27 → CATHCVL 01-10 09:19
PROVIDERS: ATTEND Internal Medicine Interventional Cardiology
DX: I25.10 Atherosclerotic heart disease of native coronary artery without angina pectoris (principal); I10 Essential (primary) hypertension; E78.5 Hyperlipidemia, unspecified; I48.0 Paroxysmal atrial fibrillation; I08.1 Rheumatic disorders of both mitral and tricuspid valves; F10.90 Alcohol use, unspecified, uncomplicated; E10.9 Type 1 diabetes mellitus without complications; F17.210 Nicotine dependence, cigarettes, uncomplicated; Z79.82 Long term (current) use of aspirin; Z79.899 Other long term (current) drug therapy; Z79.01 Long term (current) use of anticoagulants
CPT/HCPCS: 92978; 93458; 93799; 76937; 80048; 85025 ×2; C9600; C1887 ×3; C1769 ×5; C1894; C1753; C1874 ×2; C1725 ×3; J2250; J1644; J2001; Q9967; J3010

== ENCOUNTER 2025-05-12 18:49 | Observation (INO) | payer OTHER ==
--- NOTE | 2025-05-12 19:30 | ED ---
Weakness HPI - General Chief complaint: Weakness Stated complaint: SOB,R eye issue Time Seen by Provider: 05/12/25 19:28 Source: patient, RN notes reviewed, old records reviewed Mode of arrival: ambulatory Limitations: no limitations - History of Present Illness Initial comments: This is a 59 male to the ER for evaluation of weakness and fatigue similar symptoms surrounding prior [place]. Patient also noticing floaters in the right eye. No prior history of ophthalmology issue, patient recently did see his cable former for new glasses. Symptoms began today weakness with some chest pain lower extremity edema worsening for a week MD Complaint: generalized weakness, lack of energy -: days(s) Location: generalized Severity: moderate Severity scale (1-10): 4 Consistency: constant Improves with: none Worsens with: none Context: history of similar Associated Symptoms: chest pain, shortness of breath - Related Data Home Medications Medication Instructions Recorded Confirmed ALPRAZolam [Xanax] 0.5 mg PO BID PRN 12/11/22 05/12/25 INSULIN LISPRO (For Pump) [humaLOG 0.01 units SQ-PUMP CONTINUOUS 12/11/22 05/12/25 (For Pump)] Omeprazole 40 mg PO DAILY 12/11/22 05/12/25 Empagliflozin [Jardiance] 10 mg PO DAILY 01/05/24 05/12/25 Sacubitril/Valsartan [Entresto 24 1 tab PO BID 01/05/24 05/12/25 mg-26 mg Tablet] Amiodarone [Cordarone] 100 mg PO DAILY 05/12/25 05/12/25 Apixaban [Eliquis] 2.5 mg PO BID 05/12/25 05/12/25 Previous Rx's Medication Instructions Recorded Atorvastatin [Lipitor] 80 mg PO HS 30 Days #30 tab 12/14/22 Nitroglycerin Sl Tabs [Nitrostat] 0.4 mg SUBLINGUAL Q5M PRN #30 tab 12/14/22 Prasugrel [Effient] 10 mg PO DAILY 30 Days #30 tab 12/14/22 Spironolactone [Aldactone] 25 mg PO DAILY #30 tab 12/14/22 Metoprolol Succinate (ER) [Toprol 50 mg PO DAILY #30 tab 09/07/23 XL] Allergies Allergy/AdvReac Type Severity Reaction Status Date / Time No Known Allergies Allergy Verified 05/12/25 21:00 Review of Systems ROS Statement: Those systems with pertinent positive or pertinent negative responses have been documented in the HPI. ROS Other: All systems not noted in ROS Statement are negative. Past Medical History Past Medical History: Coronary Artery Disease (CAD), Diabetes Mellitus, Myocardial Infarction (TN) Additional Past Medical History / Comment(s): Pneumothorax Last Myocardial Infarction Date:: aug 2023 History of Any Multi-Drug Resistant Organisms: None Reported Past Surgical History: Heart Catheterization With Stent Additional Past Surgical History / Comment(s): Chest tube Date of Last Stent Placement:: 12/11/22 Past Psychological History: No Psychological Hx Reported Smoking Status: Never smoker Past Alcohol Use History: None Reported Past Drug Use History: Marijuana - Past Family History Father Family Medical History: Deep Vein Thrombosis (DVT), Myocardial Infarction (TN) Mother Family Medical History: AFIB General Exam Limitations: no limitations General appearance: alert, in no apparent distress Head exam: Present: atraumatic, normocephalic, normal inspection Eye exam: Present: normal appearance, PERRL, EOMI. Absent: scleral icterus, conjunctival injection, periorbital swelling ENT exam: Present: normal exam, mucous membranes moist Neck exam: Present: normal inspection. Absent: tenderness, meningismus, lymphadenopathy Respiratory exam: Present: normal lung sounds bilaterally. Absent: respiratory distress, wheezes, rales, rhonchi, stridor Cardiovascular Exam: Present: regular rate, normal rhythm, normal heart sounds. Absent: systolic murmur, diastolic murmur, rubs, gallop, clicks GI/Abdominal exam: Present: soft, normal bowel sounds. Absent: distended, tenderness, guarding, rebound, rigid Extremities exam: Present: normal inspection, full ROM, normal capillary refill. Absent: tenderness, pedal edema, joint swelling, calf tenderness Back exam: Present: normal inspection Neurological exam: Present: alert, oriented X3, CN II-XII intact Psychiatric exam: Present: normal affect, normal mood Skin exam: Present: warm, dry, intact, normal color. Absent: rash Course Vital Signs 05/12/25 18:50 Temperature 97.4 F L Pulse Rate 112 H Respiratory 18 Rate Blood Pressure 128/79 O2 Sat by Pulse 99 Oximetry - Reevaluation(s) Reevaluation #1: 07/21/25 21:07 Medical records reviewed Reevaluation #2: 05/12/25 21:07 Patient still complains of weakness and fatigue Patient still noticing floaters in the right eye Reevaluation #3: 05/12/25 21:07 Patient informed of results questions answered Reevaluation #4: Was pt. sent in by a medical professional or institution (JEFFERSON Remy, RESIDENTIAL INSTRUCTOR, urgent care, hospital, or assisted...) When possible be specific @ -no Did you speak to anyone other than the patient for history (EMS, parent, family, police, friend...)? What history was obtained from this source @ -no Did you review nursing and triage notes (agree or disagree)? Why? @ -agree Are old charts reviewed (outside hosp., previous admission, EMS record, old EKG, old radiological studies, urgent care reports/EKG's, assisted records)? Report findings @ -yes Differential Diagnosis (chest pain, altered mental status, abdominal pain women, abdominal pain men, vaginal bleeding, weakness, fever, dyspnea, syncope, headache, dizziness, GI bleed, back pain, seizure, CVA, palpatations, mental health, musculoskeletal)? @ -prior EKG interpreted by me (3pts min.). @ -yes X-rays interpreted by me (1pt min.). @ -yes negative for acute disease CT interpreted by me (1pt min.). @ -no U/S interpreted by me (1pt. min.). @ -no What testing was considered but not performed or refused? (CT, X-rays, U/S, labs)? Why? @ -none What meds were considered but not given or refused? Why? @ -none Did you discuss the management of the patient with other professionals (professionals i.e. JEFFERSON Remy, RESIDENTIAL INSTRUCTOR, lab, RT, psych nurse, social media intern, fund development manager, teacher, debt recovery officer, case resource manager)? Give summary @ -no Was smoking cessation discussed for >3mins.? @ -no Was critical care preformed (if so, how long)? @ -no Were there social determinants of health that impacted care today? How? (Homelessness, low income, unemployed, alcoholism, drug addiction, transportation, low edu. Level, literacy, decrease access to med. care, snf, rehab)? @ -none Was there de-escalation of care discussed even if they declined (Discuss DNR or withdrawal of care, Hospice)? DNR status @ -no What co-morbidities impacted this encounter? (DM, HTN, Smoking, COPD, CAD, Cancer, CVA, ARF, Chemo, Hep., AIDS, mental health diagnosis, sleep apnea, morbid obesity)? @ -none Was patient admitted / discharged? Hospital course, mention meds given and route, prescriptions, significant lab abnormalities, going to OR and other pertinent info. @ - Undiagnosed new problem with uncertain prognosis? @ -no Drug Therapy requiring intensive monitoring for toxicity (Heparin, Nitro, Insulin, Cardizem)? @ -no Were any procedures done? @ -no Diagnosis/symptom? @ - Acute, or Chronic, or Acute on Chronic? @ -Acute Uncomplicated (without systemic symptoms) or Complicated (systemic symptoms)? @ -Complicated Side effects of treatment? @ -no Exacerbation, Progression, or Severe Exacerbation? @ -exacerbation Poses a threat to life or bodily function? How? (Chest pain, [place], [place], pneumonia, PE, COPD, DKA, ARF, appy, cholecystitis, CVA, Diverticulitis, Homicidal, Suicidal, threat to staff... and all critical care pts) @ -yes Reevaluation #5: Differential Weakness: Hypoglycemia, shock, sepsis, hyponatremia, anemia, infection, [place], ETOH, adverse medicine reaction, overdose, stroke, this is not meant to be an all-inclusive list. - Consultations Consultation #1: Spoke with sound who agrees to admit this patient Medical Decision Making - Medical Decision Making 59 male strong history of heart disease coming in for fatigue, patient states similar symptoms around prior [place] history of significant CAD with stents. Patient admitted for cardiac observation, patient also admits to noticing floaters in his right eye will consult ophthalmology - Lab Data Result diagrams: 05/12/25 19:54 05/12/25 19:54 Lab Results 05/12/25 05/12/25 05/12/25 Range/Units 19:54 19:54 19:54 WBC 5.66 (4.50-10.00) 10*3/uL RBC 4.02 L (4.40-5.60) 10*6/uL Hgb 12.9 L (13.0-17.0) g/dL Hct 37.8 L (39.6-50.0) % MCV 94.0 (80.0-97.0) fL MCH 32.1 H (27.0-32.0) pg MCHC 34.1 (32.0-37.0) g/dL Plt Count 290 (140-440) 10*3/uL MPV 10.8 (9.5-12.2) fL Immature Gran % (Auto) 0.2 % Neutrophils % 57.8 % Lymphocytes % 25.6 % Monocytes % 14.8 % Eosinophils % 1.4 % Basophils % 0.2 % Immature Gran # 0.01 (0.00-0.04) 10*3/uL Neutrophils # 3.27 (1.80-7.70) 10*3/uL Lymphocytes # 1.45 (0.90-5.00) 10*3/uL Monocytes # 0.84 (0.20-1.00) 10*3/uL Eosinophils # 0.08 (0.04-0.35) 10*3/uL Basophils # 0.01 (0.00-0.10) 10*3/uL PT 11.0 (10.0-12.5) sec INR 1.0 (<1.2) APTT 24.6 (22.0-30.0) sec Sodium 139 (137-145) mmol/L Potassium 4.5 (3.5-5.1) mmol/L Chloride 109 H (98-107) mmol/L Carbon Dioxide 19 L (22-30) mmol/L Anion Gap 11 mmol/L BUN 30 H (9-20) mg/dL Creatinine 1.10 (0.66-1.25) mg/dL Est GFR (CKD-EPI)AfAm 85 (>60 ml/min/1.73 sqM) Est GFR (CKD-EPI)NonAf 73 (>60 ml/min/1.73 sqM) Glucose 128 H (74-99) mg/dL Plasma Lactic Acid Helio (0.7-2.0) mmol/L Calcium 9.7 (8.4-10.2) mg/dL Total Bilirubin 0.8 (0.2-1.3) mg/dL AST 53 (17-59) U/L ALT 56 H (4-49) U/L Alkaline Phosphatase 47 (38-126) U/L Troponin I (0.000-0.034) ng/mL Total Protein 6.0 L (6.3-8.2) g/dL Albumin 3.3 L (3.5-5.0) g/dL 05/12/25 05/12/25 Range/Units 19:54 19:54 WBC (4.50-10.00) 10*3/uL RBC (4.40-5.60) 10*6/uL Hgb (13.0-17.0) g/dL Hct (39.6-50.0) % MCV (80.0-97.0) fL MCH (27.0-32.0) pg MCHC (32.0-37.0) g/dL Plt Count (140-440) 10*3/uL MPV (9.5-12.2) fL Immature Gran % (Auto) % Neutrophils % % Lymphocytes % % Monocytes % % Eosinophils % % Basophils % % Immature Gran # (0.00-0.04) 10*3/uL Neutrophils # (1.80-7.70) 10*3/uL Lymphocytes # (0.90-5.00) 10*3/uL Monocytes # (0.20-1.00) 10*3/uL Eosinophils # (0.04-0.35) 10*3/uL Basophils # (0.00-0.10) 10*3/uL PT (10.0-12.5) sec INR (<1.2) APTT (22.0-30.0) sec Sodium (137-145) mmol/L Potassium (3.5-5.1) mmol/L Chloride (98-107) mmol/L Carbon Dioxide (22-30) mmol/L Anion Gap mmol/L BUN (9-20) mg/dL Creatinine (0.66-1.25) mg/dL Est GFR (CKD-EPI)AfAm (>60 ml/min/1.73 sqM) Est GFR (CKD-EPI)NonAf (>60 ml/min/1.73 sqM) Glucose (74-99) mg/dL Plasma Lactic Acid Helio 1.4 (0.7-2.0) mmol/L Calcium (8.4-10.2) mg/dL Total Bilirubin (0.2-1.3) mg/dL AST (17-59) U/L ALT (4-49) U/L Alkaline Phosphatase (38-126) U/L Troponin I 0.016 (0.000-0.034) ng/mL Total Protein (6.3-8.2) g/dL Albumin (3.5-5.0) g/dL - Radiology Data Radiology results: report reviewed (Chest x-ray is negative for acute disease), image reviewed Disposition Clinical Impression: Congestive heart failure, NSTEMI (non-ST elevated myocardial infarction), [place], Fatigue, LOLLY (acute kidney injury), Vitreous floaters of right eye Disposition: ADMITTED IP TO THIS HOSP Condition: Fair Is patient prescribed a controlled substance at d/c from ED?: No Referrals: Domingo Jade MD [Primary Care Provider] - 1-2 days Time of Disposition: 21:00
--- NOTE | 2025-05-12 20:12 | XR ---
EXAMINATION TYPE: XR chest 2V DATE OF EXAM: 05/12/2025 8:07 PM COMPARISON: Chest radiographs from 11/24/2033 TECHNIQUE: XR chest 2V Frontal and lateral views of the chest. CLINICAL INDICATION:Male, 59 years old with history of Weakness; FINDINGS: Lungs/Pleura: There is no evidence of pleural effusion, focal consolidation, or pneumothorax. Pulmonary vascularity: Unremarkable. Heart/mediastinum: Cardiomediastinal silhouette is unremarkable. Musculoskeletal: No acute osseous pathology. Mild degenerative changes of the thoracic spine. IMPRESSION: No acute cardiopulmonary disease/process. [facility], , 05/12/2025 8:09 PM
[2025-05-12 20:14] LABS: Basophils # (A) 0.01 10*3/uL (0.00-0.10); Basophils % (A) 0.2 %; Eosinophils # (A) 0.08 10*3/uL (0.04-0.35); Eosinophils % (A) 1.4 %; HCT 37.8 % (39.6-50.0); HGB 12.9 g/dL (13.0-17.0); Lymphocytes # (A) 1.45 10*3/uL (0.90-5.00); Lymphocytes % (A) 25.6 %; MCH 32.1 pg (27.0-32.0); MCHC 34.1 g/dL (32.0-37.0); MCV 94.0 fL (80.0-97.0); Monocytes # (A) 0.84 10*3/uL (0.20-1.00); Monocytes % (A) 14.8 %; Neutrophils # (A) 3.27 10*3/uL (1.80-7.70); Neutrophils % (A) 57.8 %; Platelet Count 290 10*3/uL (140-440); RBC 4.02 10*6/uL (4.40-5.60); RDW 11.3 % (11.5-14.5); WBC 5.66 10*3/uL (4.50-10.00)
[2025-05-12 20:25] LABS: ALT 56 U/L (4-49); AST 53 U/L (17-59); African American GFR (CKD) 85 (>60 ml/min/1.73 sqM); Albumin 3.3 g/dL (3.5-5.0); Alkaline Phosphatase 47 U/L (38-126); Anion Gap 11 mmol/L; Blood Urea Nitrogen 30 mg/dL (9-20); Calcium 9.7 mg/dL (8.4-10.2); Carbon Dioxide 19 mmol/L (22-30); Chloride 109 mmol/L (98-107); Glucose 128 mg/dL (74-99); Non-African American GFR(CKD) 73 (>60 ml/min/1.73 sqM); Potassium 4.5 mmol/L (3.5-5.1); Sodium 139 mmol/L (137-145); Total Protein 6.0 g/dL (6.3-8.2)
[2025-05-12 20:28] LABS: INR 1.0 (<1.2); Partial Thromboplastin Time 24.6 sec (22.0-30.0); Prothrombin Time 11.0 sec (10.0-12.5)
[2025-05-12] MEDS ORDERED: MORPHINE SULFATE 4 MG/ML SYRINGE IV PRN (21:04)
[2025-05-12] MEDS ORDERED: ONDANSETRON 4 MG/2 ML VIAL IVP PRN (21:04)
[2025-05-12] MEDS ORDERED: NALOXONE 0.4 MG/ML 1 ML VIAL IV PRN (21:04)
[2025-05-12] MEDS: SODIUM CHLORIDE 0.9% 1,000 ML IV SCH (22:17)
[2025-05-12 22:53] VITALS: RESP 18
[2025-05-13 03:32] LABS: Basophils # (A) 0.01 10*3/uL (0.00-0.10); Basophils % (A) 0.2 %; Eosinophils # (A) 0.10 10*3/uL (0.04-0.35); Eosinophils % (A) 2.0 %; HCT 36.5 % (39.6-50.0); HGB 12.1 g/dL (13.0-17.0); Lymphocytes # (A) 1.46 10*3/uL (0.90-5.00); Lymphocytes % (A) 28.5 %; MCH 31.5 pg (27.0-32.0); MCHC 33.2 g/dL (32.0-37.0); MCV 95.1 fL (80.0-97.0); Monocytes # (A) 0.83 10*3/uL (0.20-1.00); Monocytes % (A) 16.2 %; Neutrophils # (A) 2.71 10*3/uL (1.80-7.70); Neutrophils % (A) 52.9 %; Platelet Count 264 10*3/uL (140-440); RBC 3.84 10*6/uL (4.40-5.60); RDW 11.5 % (11.5-14.5); WBC 5.12 10*3/uL (4.50-10.00)
[2025-05-13 03:42] LABS: ALT 49 U/L (4-49); AST 41 U/L (17-59); African American GFR (CKD) >90 (>60 ml/min/1.73 sqM); Albumin 2.9 g/dL (3.5-5.0); Alkaline Phosphatase 48 U/L (38-126); Anion Gap 11 mmol/L; Blood Urea Nitrogen 30 mg/dL (9-20); Calcium 9.6 mg/dL (8.4-10.2); Carbon Dioxide 21 mmol/L (22-30); Chloride 106 mmol/L (98-107); Glucose 83 mg/dL (74-99); Magnesium 1.8 mg/dL (1.6-2.3); Non-African American GFR(CKD) 81 (>60 ml/min/1.73 sqM); Potassium 3.8 mmol/L (3.5-5.1); Sodium 138 mmol/L (137-145); Total Protein 5.5 g/dL (6.3-8.2)
[2025-05-13 05:54] LABS: Glucose,Whole Blood 78 mg/dL (70-110)
[2025-05-13] MEDS ORDERED: NITROGLYCERIN SL TABS 0.4 MG TAB SUBLINGUAL PRN (07:25)
--- NOTE | 2025-05-13 08:39 | P.CRDCN ---
History of Present Illness Consult date: 05/13/25 Consult reason: chest pain History of present illness: Patient is a 59-year-old male with history of CAD status post stenting to LAD and left circumflex in 2022 and mid LAD in 2023, paroxysmal A-fib, type 2 diabetes mellitus, hypertension, hyperlipidemia presented to the ER with complaint of feeling generalized weakness and fatigue as well as floaters in his right eye. Patient reports that he has been endorsing exertional dyspnea, fatigue and worsening lower extremity edema since 2 weeks. Denies chest pain, palpitation, orthopnea and PND. Patient reports that his symptoms of shortness of breath and fatigue are very similar to how he presented when he was diagnosed with NSTEMI. He has been taking furosemide on as-needed basis for lower extremity edema which he reports is getting better. 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 Victor on regular basis. His last appointment was 5 to 6 months ago in the office. He had an echocardiogram done in office with improved LVEF of 50 to 55%. Patient denies any chest pain, lightheadedness and is compliant with his cardiac medications. He continues to smoke 1 pack/day and and consumes about 24 drinks per week. His last alcoholic drink was 24 hours ago. Denies use of marijuana or cocaine or any other illicit drugs. At the time of interview, patient reports no shortness of breath, chest pain, swelling of the legs, lightheadedness, abdominal pain, melana, hematochezia, dysuria, numbness or weakness in upper or lower extremities. Labs and data on this admission: WBC 5.6, hemoglobin 12.9, MCV 94.0, platelet count 290, sodium 139, potassium 4.5, BUN 30, creatinine 1.10 troponin I 0.016, less than 0.012, 0.017. Chest x-ray unremarkable for pulmonary vascular congestion. EKG shows sinus rhythm with evidence of left ventricular hypertrophy. Nonspecific ST-T wave changes Review of systems: Pertinent positives and negatives as discussed in HPI, a complete review of systems was performed and all other systems are negative. Physical examination: Vital signs reviewed General: non toxic, no distress Head: atraumatic, normocephalic, symmetric Eyes: EOMI, no lid lag, anicteric sclera, pupils equal round reactive to light ENT: Nose and ears atraumatic Neck: No cervical lymphadenopathy, trachea midline, supple Mouth: no lip lesion, mucus membranes moist Cardiovascular: S1S2 reg, no murmur, positive dorsalis pedis pulse bilateral, no edema Lungs: CTA bilateral, no rhonchi, no rales, no accessory muscle use Abdominal: soft, nontender to palpation, no guarding Ext: bilateral upper extremity tremors (Patient reports he has benign essential tremors but it has worsened 1-2 weeks) Psych: Alert, oriented, appropriate affect Assessment: #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 Does not appear consistent with a stroke Unclear if amio culprit for hyperthyroidism however we will discontinue Amiodarone. Defer management of hyperthyroidism to IM Resume rest of his home cardiac medications Increase eliquis to 5 mg bid as he should be on theraputic dosing Patient is stable to discharge from cardiology standpoint Follow up with Dr. Victor in 1 week post hospital discharge Past Medical History Past Medical History: Coronary Artery Disease (CAD), Diabetes Mellitus, Myocardial Infarction ([place]) Additional Past Medical History / Comment(s): Pneumothorax Last Myocardial Infarction Date:: aug 2023 History of Any Multi-Drug Resistant Organisms: None Reported Past Surgical History: Heart Catheterization With Stent Additional Past Surgical History / Comment(s): Chest tube Past Anesthesia/Blood Transfusion Reactions: No Reported Reaction Date of Last Stent Placement:: 12/11/22 Past Psychological History: No Psychological Hx Reported Smoking Status: Current every day smoker, Never smoker Past Alcohol Use History: None Reported, Daily Past Drug Use History: None Reported - Past Family History Father Family Medical History: Deep Vein Thrombosis (DVT), Myocardial Infarction ([place]) Mother Family Medical History: AFIB Medications and Allergies Home Medications Medication Instructions Recorded Confirmed Type ALPRAZolam [Xanax] 0.5 mg PO BID PRN 12/11/22 05/12/25 History INSULIN LISPRO (For Pump) [humaLOG 0.01 units SQ-PUMP CONTINUOUS 12/11/22 05/12/25 History (For Pump)] Omeprazole 40 mg PO DAILY 12/11/22 05/12/25 History Atorvastatin [Lipitor] 80 mg PO HS 30 Days #30 tab 12/14/22 05/12/25 Rx Nitroglycerin Sl Tabs [Nitrostat] 0.4 mg SUBLINGUAL Q5M PRN #30 tab 12/14/22 05/12/25 Rx Prasugrel [Effient] 10 mg PO DAILY 30 Days #30 tab 12/14/22 05/12/25 Rx Spironolactone [Aldactone] 25 mg PO DAILY #30 tab 12/14/22 05/12/25 Rx Metoprolol Succinate (ER) [Toprol 50 mg PO DAILY #30 tab 09/07/23 05/12/25 Rx XL] Empagliflozin [Jardiance] 10 mg PO DAILY 01/05/24 05/12/25 History Sacubitril/Valsartan [Entresto 24 1 tab PO BID 01/05/24 05/12/25 History mg-26 mg Tablet] Amiodarone [Cordarone] 100 mg PO DAILY 05/12/25 05/12/25 History Apixaban [Eliquis] 2.5 mg PO BID 05/12/25 05/12/25 History Allergies Allergy/AdvReac Type Severity Reaction Status Date / Time No Known Allergies Allergy Verified 05/12/25 21:00 Physical Exam Vitals: Vital Signs Temp Pulse Pulse Resp BP BP Pulse Ox 05/13/25 03:19 97.7 F 106 H 18 149/66 99 05/13/25 01:20 94 18 05/12/25 23:09 94 18 05/12/25 22:52 97.7 F 94 18 146/74 99 05/12/25 22:13 98.8 F 91 16 135/79 99 05/12/25 18:50 97.4 F L 112 H 18 128/79 99 Intake and Output 05/12/25 05/13/25 05/13/25 22:59 06:59 14:59 Intake Total 20 Balance 20 Intake: IV 20 Invasive Line 1 20 Other: Voiding Method Toilet # Voids 1 Weight 83.915 kg 84.3 kg Results 05/13/25 03:05 05/13/25 03:05 Cardiac Enzymes 05/12/25 05/12/25 05/13/25 Range/Units 19:54 19:54 00:01 AST 53 (17-59) U/L Troponin I 0.016 <0.012 (0.000-0.034) ng/mL 05/13/25 05/13/25 Range/Units 03:05 03:05 AST 41 (17-59) U/L Troponin I 0.017 (0.000-0.034) ng/mL Coagulation 05/12/25 Range/Units 19:54 PT 11.0 (10.0-12.5) sec APTT 24.6 (22.0-30.0) sec CBC 05/12/25 05/13/25 Range/Units 19:54 03:05 WBC 5.66 5.12 (4.50-10.00) 10*3/uL RBC 4.02 L 3.84 L (4.40-5.60) 10*6/uL Hgb 12.9 L 12.1 L (13.0-17.0) g/dL Hct 37.8 L 36.5 L (39.6-50.0) % Plt Count 290 264 (140-440) 10*3/uL Comprehensive Metabolic Panel 05/12/25 05/13/25 Range/Units 19:54 03:05 Sodium 139 138 (137-145) mmol/L Potassium 4.5 3.8 (3.5-5.1) mmol/L Chloride 109 H 106 (98-107) mmol/L Carbon Dioxide 19 L 21 L (22-30) mmol/L BUN 30 H 30 H (9-20) mg/dL Creatinine 1.10 1.01 (0.66-1.25) mg/dL Glucose 128 H 83 (74-99) mg/dL Calcium 9.7 9.6 (8.4-10.2) mg/dL AST 53 41 (17-59) U/L ALT 56 H 49 (4-49) U/L Alkaline Phosphatase 47 48 (38-126) U/L Total Protein 6.0 L 5.5 L (6.3-8.2) g/dL Albumin 3.3 L 2.9 L (3.5-5.0) g/dL Current Medications Generic Name Dose Route Start Last Admin Trade Name Freq PRN Reason Stop Dose Admin Alprazolam 0.5 mg 05/13/25 08:08 Alprazolam 0.5 Mg Tab PO BID PRN Anxiety Amiodarone HCl 100 mg 05/13/25 09:00 Amiodarone 100 Mg Tab PO DAILY [facility] Apixaban 2.5 mg 05/13/25 09:00 Apixaban 2.5 Mg Tablet PO BID [facility] Protocol Atorvastatin Calcium 80 mg 05/13/25 21:00 Atorvastatin 80 Mg Tab PO HS [facility] Dapagliflozin 5 mg 05/13/25 09:00 Dapagliflozin Propanediol 5 Mg Tablet PO DAILY [facility] Sodium Chloride 1,000 mls @ 20 mls/hr 05/12/25 21:15 05/12/25 22:17 Saline 0.9% IV 20 mls/hr .Q24H [facility] Administration Insulin Human Lispro 0.01 unit 05/13/25 07:30 Insulin Lispro (For Pump) 100 Unit/Ml Vial SQ-PUMP CONTINUOUS [facility] Metoprolol Succinate 50 mg 05/13/25 09:00 Metoprolol Succinate (Er) 50 Mg Tab.Er.24h PO DAILY [facility] Morphine Sulfate 4 mg 05/12/25 21:04 Morphine Sulfate 4 Mg/Ml Syringe IV Q4HR PRN Severe Pain (Scale 7 to 10) Naloxone HCl 0.2 mg 05/12/25 21:04 Naloxone 0.4 Mg/Ml 1 Ml Vial IV Q2M PRN Opioid Reversal Nitroglycerin 0.4 mg 05/13/25 07:25 Nitroglycerin Sl Tabs 0.4 Mg Tab SUBLINGUAL Q5M PRN Chest Pain Ondansetron HCl 4 mg 05/12/25 21:04 Ondansetron 4 Mg/2 Ml Vial IVP Q8HR PRN Nausea And Vomiting Pantoprazole Sodium 40 mg 05/13/25 09:00 Pantoprazole 40 Mg Tablet PO DAILY [facility] Prasugrel 10 mg 05/13/25 09:00 Prasugrel 10 Mg Tab PO DAILY [facility] Sacubitril/Valsartan 1 each 05/13/25 09:00 Sacubitril/Valsartan 24 Mg-26 Mg Tablet PO BID [facility] Spironolactone 25 mg 05/13/25 09:00 Spironolactone 25 Mg Tab PO DAILY [facility] Intake and Output 05/12/25 05/13/25 05/13/25 22:59 06:59 14:59 Intake Total 20 Balance 20 Intake: IV 20 Invasive Line 1 20 Other: Voiding Method Toilet # Voids 1 Weight 83.915 kg 84.3 kg 05/13/25 03:05 05/13/25 03:05
[2025-05-13] MEDS ORDERED: LORazepam 1 MG TAB PO PRN ×3 (08:49)
[2025-05-13] MEDS ORDERED: LORazepam 0.5 MG TAB PO PRN (08:49)
[2025-05-13 08:55] LABS: NT-Pro-B-Type Natriuretic Pept 1490 pg/mL
[2025-05-13] MEDS: PANTOPRAZOLE 40 MG TABLET PO SCH (09:12)
[2025-05-13] MEDS: METOPROLOL SUCCINATE (ER) 50 MG TAB.ER.24H PO SCH (09:12)
[2025-05-13] MEDS: DAPAGLIFLOZIN PROPANEDIOL 5 MG TABLET PO SCH (09:12)
[2025-05-13] MEDS: SPIRONOLACTONE 25 MG TAB PO SCH (09:12)
[2025-05-13] MEDS: SACUBITRIL/VALSARTAN 24 MG-26 MG TABLET PO SCH (09:12)
[2025-05-13] MEDS: APIXABAN 2.5 MG TABLET PO SCH (09:12)
[2025-05-13] MEDS: PRASUGREL 10 MG TAB PO SCH (09:13)
[2025-05-13] MEDS: AMIODARONE 100 MG TAB PO SCH (09:13)
[2025-05-13] MEDS: INSULIN LISPRO (For Pump) 100 UNIT/ML VIAL SQ-PUMP SCH (09:15)
[2025-05-13] MEDS: ALPRAZolam 0.5 MG TAB PO PRN (11:00)
[2025-05-13 11:24] LABS: Glucose,Whole Blood 81 mg/dL (70-110)
[2025-05-13] MEDS ORDERED: DEXTROSE 50% SYRINGE 50 ML IVP PRN ×2 (12:48)
--- NOTE | 2025-05-13 12:53 | P.HPIM ---
History of Present Illness H&P Date: 05/13/25 History of Presenting Illness: Patient is a very pleasant 59-year-old male with a past medical history of CAD status post stenting, hypertension, hyperlipidemia, paroxysmal atrial fibrillat ion on anticoagulation with Eliquis, insulin-dependent diabetes mellitus, history of pneumothorax with chest tube placement, alcohol abuse, and nicotine dependence. He presented to the hospital with a chief complaint of generalized weakness and fatigue, chest pain, exertional dyspnea, bilateral lower extremity edema, and floaters in his right eye. Upon arrival to our facility, patient underwent evaluation in the emergency department. Vital signs on arrival show blood pressure 128/79, heart rate 112, respiratory rate 18, temp 97.4 F, SPO2 of 99% on room air. EKG completed showing sinus mechanism at 96 bpm. Chest x- ray completed negative for acute cardiopulmonary process. Labs completed and reviewed. CBC showing hyperchromic anemia with hemoglobin of 12.9 and MCH of 32.1. Coagulation profile normal findings. BMP showing non-anion gap metabolic acidosis with chloride of 109, bicarb of 19, and anion gap of 11 with prerenal azotemia with BUN of 30, creatinine 1.10, and GFR of 73. Blood glucose was 128. Lactic acid 1.4. Calcium 9.7. Liver profile showing elevated ALT of 56 oth erwise normal findings. Troponin was 0.016, less than 0.012, and 0.017. proBNP was 1498. Patient currently reports floaters in right eye remain but states changed to squiggly lines. He denies loss of vision in that eye, reports just seeing squiggly lines. He denies having headache, lightheadedness, dizziness, tinnitus, chest pain, palpitations, shortness of breath, cough or congestion, abdominal pain, or experiencing any numbness/tingling/weakness in his extremities. Patient reports the swelling in his lower extremities did improve overnight. Review of systems: Pertinent positives and negatives as discussed in HPI, a complete review of systems was performed and all other systems are negative. Physical exam: Vital signs reviewed and stable. General: Nontoxic, no distress and appears stated age. Derm: Skin warm and dry, normal coloration for ethnicity. Head: Atraumatic, normocephalic and symmetric. Eyes: EOM's intact, no lid lag, and anicteric sclera Mouth: no lip lesions, mucus membranes moist Cardiovascular: regular rate and rhythm with normal S1S2, no murmur, positive posterior tibial pulses bilaterally, and cap refill < 2 seconds. Lungs: Respirations even, regular, and unlabored on room air. Lungs CTA bilaterally, no rhonchi, no rales, no wheezing, and no accessory muscle usage. Abdominal: soft, nontender to palpation, no guarding, no appreciable organomegal y Ext: ROM intact. No gross muscle atrophy, no edema, no contractures Neuro: Speech clear, face symmetrical and CN II-XII grossly intact with no noted focal neuro deficits Psych: Alert and oriented to person, place, time, and situation. Appropriate and pleasant affect. Assessment and Plan of Care: Generalized weakness and fatigue Chest pain, exertional dyspnea and bilateral lower extremity edema Visual changes, patient reports floaters in right eye History of CAD status post stenting Hypertension Paroxysmal atrial fibrillation -Cardiology consulted, appreciate recommendations -Buttonholer consulted, appreciate recommended -Telemetry monitoring -Visual acuity -CT brain without contrast -Troponins trended resulting at 0.016, less than 0.012, and 0.017. proBNP was 1498. -Continue cardiac medication regimen with Eliquis 5 mg twice daily, atorvastatin 80 mg nightly, Farxiga 5 mg daily, metoprolol 50 mg daily, Effient 10 mg daily, Entresto 24-26 mg tablets twice daily, and Aldactone 25 mg daily. -TSH with reflex free T4 -Obtain orthostatic vitals. Insulin-dependent diabetes mellitus - Continue use of home insulin pump. Blood glucose checks ACHS. Follow-up on hemoglobin A1c results. Alcohol abuse, daily use/abuse -Continue monitoring of CIWA scores and patient to be medicated with Ativan 0.5 mg every 4 hours as needed for CIWA score of 4-5, Ativan 1 mg every 4 hours for CIWA score of 6-7, Ativan 2 mg every 3 hours CIWA score of 8-9, and Ativan 2 mg every 2 hours forr CIWA score of 10 or greater. -Thiamine 100 mg daily, and Multivitamin daily, and Folate 1 mg daily -Seizure, fall, aspiration, and elopement precautions. -Continued close monitoring of electrolytes and replace as needed. -Telemetry monitoring. Data and imaging reviewed: - As stated above in HPI CODE STATUS: Full code DVT prophylaxis: Eliquis Anticipated discharge date: Pending clinical course Anticipated discharge place: Home Patient was seen independently by Nurse Practitioner. This document was prepared using [employer] dictation software. Please allow for errors in assembly hand while rare they do occur. Medardo Smith NP rendered care for this patient independently, reviewed the findings and plan as documented in the note above and agree with plan. I did not physically speak with or examine the patient on this date. Past Medical History Past Medical History: Coronary Artery Disease (CAD), Diabetes Mellitus, Myocardial Infarction ([place]) Additional Past Medical History / Comment(s): Pneumothorax Last Myocardial Infarction Date:: aug 2023 History of Any Multi-Drug Resistant Organisms: None Reported Past Surgical History: Heart Catheterization With Stent Additional Past Surgical History / Comment(s): Chest tube Past Anesthesia/Blood Transfusion Reactions: No Reported Reaction Date of Last Stent Placement:: 12/11/22 Past Psychological History: No Psychological Hx Reported Smoking Status: Current every day smoker, Never smoker Past Alcohol Use History: None Reported, Daily Past Drug Use History: None Reported - Past Family History Father Family Medical History: Deep Vein Thrombosis (DVT), Myocardial Infarction ([place]) Mother Family Medical History: AFIB Medications and Allergies Home Medications Medication Instructions Recorded Confirmed Type ALPRAZolam [Xanax] 0.5 mg PO BID PRN 12/11/22 05/12/25 History INSULIN LISPRO (For Pump) [humaLOG 0.01 units SQ-PUMP CONTINUOUS 12/11/22 05/12/25 History (For Pump)] Omeprazole 40 mg PO DAILY 12/11/22 05/12/25 History Atorvastatin [Lipitor] 80 mg PO HS 30 Days #30 tab 12/14/22 05/12/25 Rx Nitroglycerin Sl Tabs [Nitrostat] 0.4 mg SUBLINGUAL Q5M PRN #30 tab 12/14/22 05/12/25 Rx Prasugrel [Effient] 10 mg PO DAILY 30 Days #30 tab 12/14/22 05/12/25 Rx Spironolactone [Aldactone] 25 mg PO DAILY #30 tab 12/14/22 05/12/25 Rx Metoprolol Succinate (ER) [Toprol 50 mg PO DAILY #30 tab 09/07/23 05/12/25 Rx XL] Empagliflozin [Jardiance] 10 mg PO DAILY 01/05/24 05/12/25 History Sacubitril/Valsartan [Entresto 24 1 tab PO BID 01/05/24 05/12/25 History mg-26 mg Tablet] Amiodarone [Cordarone] 100 mg PO DAILY 05/12/25 05/12/25 History Apixaban [Eliquis] 2.5 mg PO BID 05/12/25 05/12/25 History Allergies Allergy/AdvReac Type Severity Reaction Status Date / Time No Known Allergies Allergy Verified 05/12/25 21:00 Physical Exam Vitals: Vital Signs Temp Pulse Pulse Resp BP BP Pulse Ox 05/13/25 03:19 97.7 F 106 H 18 149/66 99 05/13/25 01:20 94 18 05/12/25 23:09 94 18 05/12/25 22:52 97.7 F 94 18 146/74 99 05/12/25 22:13 98.8 F 91 16 135/79 99 05/12/25 18:50 97.4 F L 112 H 18 128/79 99 Intake and Output 05/12/25 05/13/25 05/13/25 22:59 06:59 14:59 Intake Total 20 Balance 20 Intake: IV 20 Invasive Line 1 20 Other: Voiding Method Toilet # Voids 1 Weight 83.915 kg 84.3 kg Results CBC & Chem 7: 05/13/25 03:05 05/13/25 03:05 Labs: Abnormal Lab Results - Last 24 Hours (Table) 05/12/25 05/12/25 05/13/25 Range/Units 19:54 19:54 03:05 RBC 4.02 L 3.84 L (4.40-5.60) 10*6/uL Hgb 12.9 L 12.1 L (13.0-17.0) g/dL Hct 37.8 L 36.5 L (39.6-50.0) % MCH 32.1 H (27.0-32.0) pg Chloride 109 H (98-107) mmol/L Carbon Dioxide 19 L (22-30) mmol/L BUN 30 H (9-20) mg/dL Glucose 128 H (74-99) mg/dL Phosphorus (2.5-4.5) mg/dL ALT 56 H (4-49) U/L Total Protein 6.0 L (6.3-8.2) g/dL Albumin 3.3 L (3.5-5.0) g/dL / Range/Units 03:05 RBC (4.40-5.60) 10*6/uL Hgb (13.0-17.0) g/dL Hct (39.6-50.0) % MCH (27.0-32.0) pg Chloride (98-107) mmol/L Carbon Dioxide 21 L (22-30) mmol/L BUN 30 H (9-20) mg/dL Glucose (74-99) mg/dL Phosphorus 6.7 H (2.5-4.5) mg/dL ALT (4-49) U/L Total Protein 5.5 L (6.3-8.2) g/dL Albumin 2.9 L (3.5-5.0) g/dL Thrombosis Risk Factor Assmnt - Choose All That Apply Any of the Below Risk Factors Present?: Yes Each Factor Represents 1 point: Acute [place], Age 41-60 years Other Risk Factors: No Other congenital or acquired thrombophilia - If yes, enter type in comment: No Thrombosis Risk Factor Assessment Total Risk Factor Score: 2 Thrombosis Risk Factor Assessment Level: Low Risk
--- NOTE | 2025-05-13 13:26 | CT ---
EXAMINATION TYPE: CT brain wo con CT DLP: 1347.3 mGycm, Automated exposure control for dose reduction was used. DATE OF EXAM: 05/13/2025 1:17 PM COMPARISON: None. CLINICAL INDICATION:Male, 59 years old with history of R eye visual changes/floaters w/ intermittent NELSON, Right eye visual changes/floaters with intermittent NELSON TECHNIQUE: Brain: Multiple axial CT images of the brain were obtained without IV contrast. . Coronal and sagitta l reformats reviewed. FINDINGS: Brain: Extra-axial spaces: No abnormal extra-axial fluid collections. Ventricular system: Within normal limits Cerebral parenchyma: No acute intraparenchymal hemorrhage or mass effect. Small region of encephalom alacia within the left occipital lobe at the meza-white junction. The remaining meza-white junction i s well differentiated. Scattered hypoattenuating areas are seen within the periventricular white chandni er. Cerebellum: Unremarkable. Mass effect: No evidence of midline shift. Intracranial vasculature: Atherosclerotic calcifications of the intracranial vessels. Soft tissues: Normal. Calvarium/osseous structures: No depressed skull fracture. Paranasal sinuses and mastoid air cells: The mastoid air cells are clear. Cerumen within the bilatera l external auditory canals. Right inferior maxillary sinus 1.6 cm mucous retention cyst. Partial opac ification of the right ethmoid sinus. The remaining paranasal sinuses are clear. Visualized orbits: Orbital contents are intact. IMPRESSION: 1. No acute intracranial process. 2. Remote ischemic injury within the left occipital lobe. 3. Nonspecific mild white matter changes, likely secondary to chronic small vessel ischemic disease. [facility], , 05/13/2025 1:24 PM
[2025-05-13] MEDS: FOLIC ACID 1 MG TAB PO SCH (13:35)
[2025-05-13] MEDS: MULTIVITAMINS, THERA 1 EACH TAB PO SCH (13:35)
[2025-05-13 15:52] LABS: Ferritin 451.0 ng/mL (22.0-322.0); Iron 48 UG/DL (65-175); Total Iron Binding Capacity 195 UG/DL (228-460); Vitamin B12 644.0 pg/mL (200.0-944.0)
[2025-05-13] MEDS: ATORVASTATIN 80 MG TAB PO SCH (19:59)
[2025-05-13] MEDS: APIXABAN 5 MG TAB PO SCH (19:59)
[2025-05-14 05:00] VITALS: TEMP 98.2
[2025-05-14 07:46] LABS: HCT 35.9 % (39.6-50.0); HGB 11.8 g/dL (13.0-17.0); MCH 31.3 pg (27.0-32.0); MCHC 32.9 g/dL (32.0-37.0); MCV 95.2 fL (80.0-97.0); Platelet Count 278 10*3/uL (140-440); RBC 3.77 10*6/uL (4.40-5.60); RDW 11.3 % (11.5-14.5); WBC 5.24 10*3/uL (4.50-10.00)
--- NOTE | 2025-05-14 07:48 | P.PN ---
Subjective Progress Note Date: 05/14/25 Patient is a 59-year-old male with history of CAD status post stenting to LAD and left circumflex in 2022 and mid LAD in 2023, paroxysmal A-fib, type 2 diabetes mellitus, hypertension, hyperlipidemia presented to the ER with complaint of feeling generalized weakness and fatigue as well as floaters in his right eye. Patient reports that he has been endorsing exertional dyspnea, fatigue and worsening lower extremity edema since 2 weeks. Denies chest pain, palpitation, orthopnea and PND. Patient reports that his symptoms of shortness of breath and fatigue are very similar to how he presented when he was diagnosed with NSTEMI. He has been taking furosemide on as-needed basis for lower extremity edema which he reports is getting better. He has been following up with his primary molding room supervisor Dr. Victor on regular basis. His last appointment was 5 to 6 months ago in the office. He had an echocardiogram done in office with improved LVEF of 50 to 55%. Patient denies any chest pain, lightheadedness and is compliant with his cardiac medications. He continues to smoke 1 pack/day and and consumes about 24 drinks per week. His last alcoholic drink was 24 hours ago. Denies use of marijuana or cocaine or any other illicit drugs. At the time of interview, patient reports no shortness of breath, chest pain, swelling of the legs, lightheadedness, abdominal pain, melana, hematochezia, dysuria, numbness or weakness in upper or lower extremities. Labs and data on this admission: WBC 5.6, hemoglobin 12.9, MCV 94.0, platelet count 290, sodium 139, potassium 4.5, BUN 30, creatinine 1.10 troponin I 0.016, less than 0.012, 0.017. Chest x-ray unremarkable for pulmonary vascular congestion. EKG shows sinus rhythm with evidence of left ventricular hypertrophy. Nonspecific ST-T wave changes 05/14/2025: Patient seen and examined at the bedside. No acute events overnight. Patient denies chest pain, shortness of breath, swelling of the legs. Patient continues to have floaters in the right eye. No focal neurological deficit. TSH less than 0.015 and free T4 is more than 6.9. Physical examination: Vital signs reviewed General: non toxic, no distress Head: atraumatic, normocephalic, symmetric Eyes: EOMI, no lid lag, anicteric sclera, pupils equal round reactive to light ENT: Nose and ears atraumatic Neck: No cervical lymphadenopathy, trachea midline, supple Mouth: no lip lesion, mucus membranes moist Cardiovascular: S1S2 reg, no murmur, positive dorsalis pedis pulse bilateral, no edema Lungs: CTA bilateral, no rhonchi, no rales, no accessory muscle use Abdominal: soft, nontender to palpation, no guarding Ext: bilateral upper extremity tremors (Patient reports he has benign essential tremors but it has worsened 1-2 weeks) Psych: Alert, oriented, appropriate affect Assessment: #floaters in the right eye #Generalized weakness/fatigue likely secondary to hyperthyroidism #History of CAD status post stenting to LAD and left circumflex in 2022 and mid LAD in 2023 #History of ischemic cardiomyopathy #paroxysmal A-fib #Chronic tobacco use #Chronic alcohol use #Hypertension #Type 2 diabetes mellitus #Hyperthyroidism # Previous old stroke noted on CT brain Plan: Cotton Weigher Operator consulted for floaters. Does not appear consistent with a stroke Unclear if amio culprit for hyperthyroidism however we will discontinue Amiodarone. Defer management of hyperthyroidism to IM, patient started on Methimazole Continue Eliquis 5 mg twice daily Patient is stable to discharge from cardiology standpoint Follow up with Dr. Victor in 1 week post hospital discharge Objective - Vital Signs Vital signs: Vital Signs Temp 98.2 F 05/14/25 04:00 Pulse 83 05/14/25 04:00 Resp 18 05/14/25 04:00 BP 110/64 05/14/25 04:00 Pulse Ox 96 05/14/25 04:00 FiO2 Intake & Output 05/13/25 05/14/25 05/14/25 18:59 06:59 18:59 Intake Total 160 240 Balance 160 240 Weight 84.1 kg Intake: Intake, IV Titration 160 Amount Sodium Chloride 0.9% 1, 160 000 ml @ 20 mls/hr IV . Q24H JARED Rx#:[id number] Oral 240 Other: Voiding Method Toilet Toilet # Voids 1 - Labs CBC & Chem 7: 05/14/25 06:14 05/14/25 06:14 Labs: Abnormal Lab Results - Last 24 Hours (Table) 05/13/25 05/13/25 05/14/25 Range/Units 08:07 08:07 06:14 RBC 3.77 L (4.40-5.60) 10*6/uL Hgb 11.8 L (13.0-17.0) g/dL Hct 35.9 L (39.6-50.0) % Iron 48 L (65-175) UG/DL TIBC 195 L (228-460) UG/DL Transferrin 139.0 L (204.0-354.0) mg/dL Ferritin 451.0 H (22.0-322.0) ng/mL Vitamin D 25-Hydroxy 25.4 L (30.0-100.0) ng/mL TSH <0.015 L (0.465-4.680) mIU/L Free T4 >6.99 H (0.78-2.19) ng/dL
[2025-05-14 08:04] LABS: ALT 49 U/L (4-49); AST 39 U/L (17-59); African American GFR (CKD) >90 (>60 ml/min/1.73 sqM); Albumin 2.9 g/dL (3.5-5.0); Alkaline Phosphatase 46 U/L (38-126); Anion Gap 9 mmol/L; Blood Urea Nitrogen 28 mg/dL (9-20); Calcium 9.4 mg/dL (8.4-10.2); Carbon Dioxide 22 mmol/L (22-30); Chloride 109 mmol/L (98-107); Glucose 100 mg/dL (74-99); Magnesium 1.9 mg/dL (1.6-2.3); Non-African American GFR(CKD) 87 (>60 ml/min/1.73 sqM); Potassium 4.1 mmol/L (3.5-5.1); Sodium 140 mmol/L (137-145); Total Protein 5.4 g/dL (6.3-8.2)
[2025-05-14] MEDS: THIAMINE 100 MG TAB PO SCH (08:53)
[2025-05-14 10:08] VITALS: BP 116/66; PULSE 90
[2025-05-14] MEDS: methIMAzole 5 MG TAB PO SCH (11:02)
--- NOTE | 2025-05-14 14:14 | P.DS ---
Providers Date of admission: 05/12/25 21:05 Expected date of discharge: 05/14/25 Attending physician: Aaron Engle MD Consults: 05/12/25 21:04 Consult Physician Routine Consulting Provider: Edison Miles Consult Reason/Comments: retinal detachment Do you want consulting provider notified?: Yes Consult Physician Routine Consulting Provider: Mainor Fleming Consult Reason/Comments: cp Do you want consulting provider notified?: Yes Primary care physician: Domingo Jade MD Hospital Course: Discharge Diagnosis: Hyperthyroidism. TSH resulting at less than 0.015 with a free T4 of greater than 6.99. Patient started on methimazole 10 mg daily and strongly educated that he will need to follow-up with his PCP or cartoonist special effects for repeat thyroid function testing in 4-6 weeks. Visual changes, patient reports floaters in right eye. Unclear if due to vitreous degeneration or posterior vitreous detachment, retinal detachment, or other. Patient adamantly declined waiting for ophthalmology to evaluate stating he called and scheduled an appointment with his own personal tower loader operator. Generalized weakness and fatigue Chest pain, exertional dyspnea and bilateral lower extremity edema. Acute coronary event ruled out. Troponins trended resulting at 0.016, less than 0.012, and 0.017. proBNP was 1498. Patient was evaluated by cardiology discontinuing amiodarone and increasing Eliquis from 2.5 mg twice daily to 5 mg twice daily per guidelines. Patient to continue cardiac medication regimen with Eliquis 5 mg twice daily, atorvastatin 80 mg nightly, Farxiga 5 mg daily, metoprolol 50 mg daily, Effient 10 mg daily, Entresto 24-26 mg tablets twice daily, and Aldactone 25 mg daily. History of CAD status post stenting. Patient to continue cardiac medication regimen with Eliquis 5 mg twice daily, atorvastatin 80 mg nightly, Farxiga 5 mg daily, metoprolol 50 mg daily, Effient 10 mg daily, Entresto 24-26 mg tablets twice daily, and Aldactone 25 mg daily. Hypertension. Patient to continue medication regimen with metoprolol 50 mg daily and Aldactone 25 mg daily. Paroxysmal atrial fibrillation. Was increased to 5 mg twice daily and patient to continue metoprolol 50 mg daily. Amiodarone was discontinued secondary to hyperthyroidism. Insulin-dependent diabetes mellitus. Hemoglobin A1c 7.3%. Patient to continue heart healthy and carb consistent diet with continued use of his home insulin pump. Alcohol abuse, daily use/abuse. Strongly recommend cessation of any and all alcohol use. Previous old stroke noted on CT to left occipital lobe. Patient to continue medication regimen with Effient 10 mg daily and atorvastatin 80 mg nightly Hospital Course: Patient is a very pleasant 59-year-old male with a past medical history of CAD status post stenting, hypertension, hyperlipidemia, paroxysmal atrial fibrillation on anticoagulation with Eliquis, insulin-dependent diabetes mellitus, history of pneumothorax with chest tube placement, alcohol abuse, and nicotine dependence. He presented to the hospital with a chief complaint of generalized weakness and fatigue, chest pain, exertional dyspnea, bilateral lower extremity edema, and floaters in his right eye. Upon arrival to our facility, patient underwent evaluation in the emergency department. Vital signs on arrival show blood pressure 128/79, heart rate 112, respiratory rate 18, temp 97.4 F, SPO2 of 99% on room air. EKG completed showing sinus mechanism at 96 bpm. Chest x-ray completed negative for acute cardiopulmonary process. Labs completed and reviewed. CBC showing hyperchromic anemia with hemoglobin of 12.9 and MCH of 32.1. Coagulation profile normal findings. BMP showing non-anion gap metabolic acidosis with chloride of 109, bicarb of 19, and anion gap of 11 with prerenal azotemia with BUN of 30, creatinine 1.10, and GFR of 73. Blood glucose was 128. Lactic acid 1.4. Calcium 9.7. Liver profile showing elevated ALT of 56 otherwise normal findings. Troponin was 0.016, less than 0.012, and 0.017. proBNP was 1498. CT brain was completed and was negative for acute intracranial process showing a remote ischemic injury within the left occipital lobe and nonspecific white matter changes likely secondary to chronic small vessel ischemic disease. TSH resulting at less than 0.015 with a free T4 of greater than 6.99. Patient started on methimazole 10 mg daily and strongly educated that he will need to follow-up with his PCP for repeat thyroid function testing in 4 weeks. Patient very adamant on discharge this morning, reports his weakness, fatigue, chest pain, exertional dyspnea swelling in his legs have fully resolved since arrival to our facility. He does admit to having continued floaters in right eye that he describes as moving squiggly lines. He denies loss of vision in that eye and denies having headache, lightheadedness, dizziness, tinnitus, chest pain, palpitations, shortness of breath, cough or congestion, abdominal pain, or experiencing any numbness/tingling/weakness in his extremities. Patient reports he is not willing to wait for evaluation by tower loader operator in the hospital. Patient states he called his personal tower loader operator, Dr. Pederson and he has an appointment scheduled for Monday at 9 AM. Patient states he talked with the tower loader operator and they did not seem to think this was an emergency and he can follow-up on Monday. Patient otherwise medically optimized at this time. He was cleared from cardiac perspective for discharge. Patient again instructed he will need to follow-up outpatient with PCP, tower loader operator, and educated that he will need repeat thyroid function testing completed in 4 to 6 weeks. Physical exam: Vital signs reviewed and stable. General: Nontoxic, no distress and appears stated age. Derm: Skin warm and dry, normal coloration for ethnicity. Head: Atraumatic, normocephalic and symmetric. Eyes: EOM's intact, no lid lag, and anicteric sclera Mouth: no lip lesions, mucus membranes moist Cardiovascular: regular rate and rhythm with normal S1S2, no murmur, positive posterior tibial pulses bilaterally, and cap refill < 2 seconds. Lungs: Respirations even, regular, and unlabored on room air. Lungs CTA bilaterally, no rhonchi, no rales, no wheezing, and no accessory muscle usage. Abdominal: soft, nontender to palpation, no guarding, no appreciable organomegaly Ext: ROM intact. No gross muscle atrophy, no edema, no contractures Neuro: Speech clear, face symmetrical and CN II-XII grossly intact with no noted focal neuro deficits Psych: Alert and oriented to person, place, time, and situation. Appropriate and pleasant affect. A total of 38 minutes of time were spent preparing this complex discharge summary. Pt was discharged on 05/14/2025 at 9:57 AM. Patient was seen independently by Nurse Practitioner. This document was prepared using [employer] dictation software. Please allow for errors in quality process auditor while rare they do occur. Medardo Smith NP rendered care for this patient independently, reviewed the findings and plan as documented in the note above. I did not physically speak with or examine the patient on this date. Patient Condition at Discharge: Stable Plan - Discharge Summary Discharge Rx Participant: Yes New Discharge Prescriptions: New Apixaban [Eliquis] 5 mg PO BID 30 Days #60 tab methIMAzole [Tapazole] 10 mg PO DAILY 30 Days #60 tab Continue ALPRAZolam [Xanax] 0.5 mg PO BID PRN PRN Reason: Anxiety Omeprazole 40 mg PO DAILY Atorvastatin [Lipitor] 80 mg PO HS 30 Days #30 tab Nitroglycerin Sl Tabs [Nitrostat] 0.4 mg SUBLINGUAL Q5M PRN #30 tab PRN Reason: Chest Pain Metoprolol Succinate (ER) [Toprol XL] 50 mg PO DAILY #30 tab Sacubitril/Valsartan [Entresto 24 mg-26 mg Tablet] 1 tab PO BID INSULIN LISPRO (For Pump) [humaLOG (For Pump)] 0.01 units SQ-PUMP CONTINUOUS Spironolactone [Aldactone] 25 mg PO DAILY #30 tab Prasugrel [Effient] 10 mg PO DAILY 30 Days #30 tab Empagliflozin [Jardiance] 10 mg PO DAILY Discontinued Apixaban [Eliquis] 2.5 mg PO BID Amiodarone [Cordarone] 100 mg PO DAILY Discharge Medication List ALPRAZolam [Xanax] 0.5 mg PO BID PRN 12/11/22 [History] INSULIN LISPRO (For Pump) [humaLOG (For Pump)] 0.01 units SQ-PUMP CONTINUOUS 12/11/22 [History] Omeprazole 40 mg PO DAILY 12/11/22 [History] Atorvastatin [Lipitor] 80 mg PO HS 30 Days #30 tab 12/14/22 [Rx] Nitroglycerin Sl Tabs [Nitrostat] 0.4 mg SUBLINGUAL Q5M PRN #30 tab 12/14/22 [Rx] Prasugrel [Effient] 10 mg PO DAILY 30 Days #30 tab 12/14/22 [Rx] Spironolactone [Aldactone] 25 mg PO DAILY #30 tab 12/14/22 [Rx] Metoprolol Succinate (ER) [Toprol XL] 50 mg PO DAILY #30 tab 09/07/23 [Rx] Empagliflozin [Jardiance] 10 mg PO DAILY 01/05/24 [History] Sacubitril/Valsartan [Entresto 24 mg-26 mg Tablet] 1 tab PO BID 01/05/24 [History] Apixaban [Eliquis] 5 mg PO BID 30 Days #60 tab 05/14/25 [Rx] methIMAzole [Tapazole] 10 mg PO DAILY 30 Days #60 tab 05/14/25 [Rx] Follow up Appointment(s)/Referral(s): Hussein Arambula MD [STAFF PHYSICIAN] - 1 Week Anthony Pederson MD [STAFF PHYSICIAN] - 1-2 Days (Follow up as scheduled with your opthamalogist, Dr. Pederson as per your request you did not want to wait for opthamologist to see you inpatient. Patient made an appt already for this Monday05/16/25) Domingo Jade MD [Primary Care Provider] - 1-2 days (You will need to be seen by your PCP in 1-2 days post discharge for follow up and will also need repeat thyroid function testing completed in 4-6 weeks for further evaluation of your hyperthyroidism Appt 05/21 9:30am) Patient Instructions/Handouts: Hyperthyroidism (DC), At-Risk Alcohol Use (DC), Fatigue (DC), Visual Floaters (GEN) Activity/Diet/Wound Care/Special Instructions: Activity: As tolerated. Take breaks as needed. Diet: Heart healthy and carb consistent diet. Avoid salts, or foods with hidden salts such as canned or boxed foods and frozen dinners. Extra salt makes your heart work harder and traps the fluid in your body for longer. Special Instructions: Take all of your medications as directed and remember to keep all of your doctor's appointments and follow-up as needed. You have been started on methimazole for treatment of your hyperthyroidism, it is of upmost importance that you follow up with this as you will need repeat thyroid function testing completed in 4-6 weeks for further evaluation of your hyperthyroidism. Strongly recommend avoidance of any and all alcohol use. Per your request, you are being discharged home prior to evaluation by the tower loader operator and stated that you have scheduled an appointment with your personal tower loader operator for follow-up on Monday. It is of utmost importance to be evaluated by your tower loader operator for your reports of experiencing floaters in your right eye. If the symptoms worsen or you develop any associated symptoms it is highly recommended that you return to the emergency department for evaluation. Thank you for allowing us to participate in your care, it was truly a pleasure having you for our patient!!! Discharge Disposition: HOME SELF-CARE
[2025-05-14 16:04] LABS: Cholesterol 85.00 mg/dL (0.00-200.00); HDL Cholesterol 24.50 mg/dL (40.00-60.00); LDL Cholesterol,Calculated 39.3 mg/dL (0.0-131.0); Triglycerides 106.00 mg/dL (0.00-149.00); VLDL Calculation 21.20 mg/dL (5.00-40.00)
== END 2025-05-14 10:55 | disposition home or self-care (01) ==
LOC: EC 18:49 → 3SCARD 21:05
PROVIDERS: ADMIT Internal Medicine; ATTEND Internal Medicine
DX: R07.9 Chest pain, unspecified (principal); R06.09 Other forms of dyspnea; R60.0 Localized edema; H43.391 Other vitreous opacities, right eye; N17.9 Acute kidney failure, unspecified; I21.4 Non-ST elevation (NSTEMI) myocardial infarction; H33.21 Serous retinal detachment, right eye; E05.90 Thyrotoxicosis, unspecified without thyrotoxic crisis or storm; I25.5 Ischemic cardiomyopathy; F10.10 Alcohol abuse, uncomplicated; E11.9 Type 2 diabetes mellitus without complications; I25.10 Atherosclerotic heart disease of native coronary artery without angina pectoris; I25.2 Old myocardial infarction; I11.0 Hypertensive heart disease with heart failure; I50.9 Heart failure, unspecified; I48.0 Paroxysmal atrial fibrillation; E78.5 Hyperlipidemia, unspecified; F17.200 Nicotine dependence, unspecified, uncomplicated; Z86.73 Personal history of transient ischemic attack (TIA), and cerebral infarction without residual deficits; Z95.5 Presence of coronary angioplasty implant and graft; Z79.4 Long term (current) use of insulin; Z96.41 Presence of insulin pump (external) (internal); Z79.84 Long term (current) use of oral hypoglycemic drugs; Z79.899 Other long term (current) drug therapy; Z79.01 Long term (current) use of anticoagulants; Z79.02 Long term (current) use of antithrombotics/antiplatelets; Z82.49 Family history of ischemic heart disease and other diseases of the circulatory system
CPT/HCPCS: 99285; 36415; 93005; 84439; 82747; 83880; 80061; 80053 ×3; 82607; 82728; 83540; 83550; 83605; 83735 ×2; 84100; 84443; 84484 ×2; 85025 ×2; 85027; 85610; 85730; 82306; 83036; 71046; 70450; G0378 ×3